=== PATIENT | male | born 1950 | race Caucasian/White ===

== ENCOUNTER → 2020-01-13 | Outpatient (CLI) | payer MEDICARE ==
--- NOTE | 2020-01-13 13:46 | CONS ---
CONSULTATION DATE OF SERVICE: 01/13/2020. HISTORY OF PRESENT ILLNESS/SLEEP WAKE EVALUATION: 69-year-old gentleman who has been evaluated in Sleep Center for obstructive sleep apnea-hypopnea syndrome. SLEEP SCHEDULE: The patient's usual sleep schedule from 10 p.m. to 7 a.m. basically 7 days a week. FALLING ASLEEP: Usually no problems with falling asleep. DURING SLEEP: He sleeps in different positions including backside and stomach. According to his , he has extremely loud snoring and witnessed episodes of stopped breathing during sleep. The patient wakes up from sleep with nocturia. He has swinging movements of his arm, rolling back and forth during the night. DURING THE DAY/SLEEP WAKE EVALUATION: During the day patient may feel sleepiness. [place] Sleepiness Scale increased to 10. PAST MEDICAL HISTORY: Positive for hypertension, hemorrhagic stroke, diabetes mellitus, hyperlipidemia, acid reflux, arthritis, depression. PAST SURGICAL HISTORY: Bilateral surgery for cataracts. MEDICATIONS: Amlodipine, bupropion, Calcitriol, carvedilol, doxazosin, fluoxetine, Humalog, Lantus, lisinopril, . REVIEW OF SYSTEMS: Awakenings from sleep, sometimes tiredness and sleepiness during the day. Snoring, witnessed episodes of stopped breathing during sleep. PHYSICAL EXAM: gentleman without distress. BP 160/61, HR 56, RR 16, height 5 feet 11 inches, weight 270 pounds, BMI 37.6, temperature 98.1. Oxygen saturation at room air 97%. Oropharynx low position of soft palate, wide neck 18 inches in circumference. HEENT: PERRLA, EOMI, evaluation of oropharynx showed tongue protrudes midline. NECK: Supple, no JVD. Thyroid is not palpable. LUNGS: Clear to percussion and to auscultation. Good air exchange. No wheezing or rhonchi. HEART: S1, S2 regular. No murmurs, gallops, or rubs. ABDOMEN: Obese. Soft and nontender. Bowel sounds are present. No organomegaly appreciated. EXTREMITIES: No clubbing or cyanosis. SAMPLE TESTER GRINDER: Awake, alert, and oriented X3. Cranial nerves 2 to 7 intact. There is no fasciculation or atrophy. noted. No focal deficits observed. IMPRESSION: 1. Loud snoring, witnessed episodes of stopped breathing during sleep. Low position of soft palate, wide neck, sleepiness. [place] Sleepiness Scale is 10. Obstructive sleep apnea-hypopnea syndrome. 2. Obesity BMI 37.6. 3. Hypertension. 4. Status post hemorrhagic stroke with slight residual right-sided weakness. 5. Diabetes mellitus. 6. Hyperlipidemia. 7. Acid reflux. 8. History of arthritis. 9. Depression. 10.Status post bilateral cataract surgery. PLAN: 1. Polysomnography for evaluation of patient's breathing during sleep. 2. CPAP/BiPAP titration if sleep study confirms obstructive sleep apnea-hypopnea syndrome. 3. Preferable position during sleep on the side. 4. No driving if patient feels any sleepiness. 5. I will see patient for follow up visit to explain results of testing and following plan. Thank you very much for referring this patient for consultation. Sincerely, West Brown MD, PhD, FAASM Diplomat of [place] [employer] [place] [employer] Supervisor Fitting of [facility] [place] MMODL / SERINAN: [id number] /
== END | disposition home or self-care (01) ==
LOC: SLEEP 10:17
PROVIDERS: ATTEND Internal Medicine
DX: G47.33 Obstructive sleep apnea (adult) (pediatric) (principal); E66.9 Obesity, unspecified; I10 Essential (primary) hypertension; R53.1 Weakness; E11.9 Type 2 diabetes mellitus without complications; E78.5 Hyperlipidemia, unspecified; K21.9 Gastro-esophageal reflux disease without esophagitis; Z68.37 Body mass index [BMI] 37.0-37.9, adult; Z87.39 Personal history of other diseases of the musculoskeletal system and connective tissue; Z86.73 Personal history of transient ischemic attack (TIA), and cerebral infarction without residual deficits; Z98.890 Other specified postprocedural states; Z79.4 Long term (current) use of insulin; Z79.899 Other long term (current) drug therapy
CPT/HCPCS: 99211

== ENCOUNTER → 2020-05-05 | Outpatient (CLI) | payer MEDICARE ==
[2020-05-05 08:32] LABS: HCT 36.3 % (39.0-53.0); HGB 12.3 gm/dL (13.0-17.5); MCH 30.2 pg (25.0-35.0); MCHC 33.8 g/dL (31.0-37.0); MCV 89.3 fL (80.0-100.0); Mean Platelet Volume 8.8; Platelet Count 208 k/uL (150-450); RBC 4.06 m/uL (4.30-5.90); RDW 12.7 % (11.5-15.5); WBC 6.7 k/uL (3.8-10.6)
[2020-05-05 08:41] LABS: Albumin 3.3 g/dL (3.5-5.0); Calcium 8.5 mg/dL (8.4-10.2); Potassium 4.5 mmol/L (3.5-5.1); Total Bilirubin 0.5 mg/dL (0.2-1.3); Total Protein 5.7 g/dL (6.3-8.2)
[2020-05-05 08:44] LABS: INR 0.9 (<1.2); Prothrombin Time 9.5 sec (9.0-12.0)
[2020-05-05 10:04] LABS: Appearance,Urine Clear (Clear); Bilirubin,Urine Negative (Negative); Blood,Urine Negative (Negative); Color,Urine Yellow; Glucose,Urine (UA) 4+ (Negative); Ketones,Urine Negative (Negative); Leukocyte Esterase,Urine Negative (Negative); Mucus,Urine Rare /hpf; Nitrite,Urine Negative (Negative); PH, Urine 5.5 (5.0-8.0); Protein,Urine 1+ (Negative); RBC,Urine 1 /hpf (0-5); Specific Gravity,Urine 1.019 (1.001-1.035); Squamous Epithelial Cell,Urine <1 /hpf (0-4); Urobilinogen,Urine <2.0 mg/dL (<2.0); WBC,Urine 1 /hpf (0-5)
== END | disposition home or self-care (01) ==
LOC: LABPAT 05-04 15:11
PROVIDERS: ATTEND Orthopaedic Surgery Sports Medicine
DX: Z01.818 Encounter for other preprocedural examination (principal); M17.11 Unilateral primary osteoarthritis, right knee; Z79.01 Long term (current) use of anticoagulants
CPT/HCPCS: 36415; 80053; 81001; 85027; 85610; 85730; 87070

== ENCOUNTER → 2020-05-10 | Outpatient (CLI) | payer MEDICARE ==
--- NOTE | 2020-05-10 16:53 | SFUN ---
SLEEP CENTER FOLLOW UP NOTE DATE OF SERVICE: 05/10/2020 A 70-year-old gentleman who has been followed in the Sleep Center for treatment of obstructive sleep apnea-hypopnea syndrome. Patient recently had a polysomnogram and CPAP titration. I discussed results of sleep studies with the patient in detail. Polysomnogram showed extremely severe obstructive sleep apnea-hypopnea syndrome with apnea-hypopnea index 82.8. Presently, patient is on treatment with CPAP. He likes his machine. He feels better with CPAP. Sleeps better. [place] Sleepiness Scale today is 6. I checked CPAP unit. Range of the pressure 7-18, mask fit 84%. Average usage per night, 7.5 hours. Apnea-hypopnea index reading is 8. MEDICATIONS: Amlodipine, bupropion, , carvedilol, doxazosin, fluoxetine, Humalog, Lantus, lisinopril. PHYSICAL EXAM: Patient in no distress. BP 166/89, HR 56, RR 16, weight 262.2, temp 98.0, oxygen saturation at room air 97%. OROPHARYNX: Low position of soft palate. ABDOMEN: Obese. NECK: Supple, no JVD. Thyroid is not palpable. LUNGS: Clear to percussion and to auscultation. Good air exchange. No wheezing or rhonchi. HEART: S1, S2 regular. No murmurs, gallops, or rubs. EXTREMITIES: No clubbing or cyanosis. COTTON WRINGER: Awake, alert, and oriented X3. Cranial nerves 2 to 7 intact. There is no fasciculation or atrophy. noted. No focal deficits observed. IMPRESSION: 1. Extremely severe obstructive sleep apnea-hypopnea syndrome with apnea-hypopnea index 82.8. Patient demonstrated good compliance with treatment, benefitting from treatment. The reading from the machine showed apnea-hypopnea index 8. 2. Obesity. 3. Hypertension. 4. Status post hemorrhagic stroke. 5. Diabetes mellitus. 6. Hyperlipidemia. 7. Acid reflux. 8. Depression. 9. History of arthritis. 10.Status post bilateral cataract surgery. PLAN: 1. 1 increased range of the pressure in the machine to the range from 7-20. 2. Patient will continue to use PAP equipment every night for the whole night. 3. Sleep hygiene with regular time in bed for at least 7-1/2 to 8 hours. 4. Precautions related to driving. No driving if feeling sleepiness. 5. I will maintain all necessary prescription for PAP supplies including mask, tube, filters. 6. Watching weight. 7. No driving if feeling sleepiness. 8. Follow-up visit in 6 months or earlier if patient has any problems. Thank you very much for allowing me to participate in the management of your patient. Sincerely, West Brown MD, PhD, FAASM Diplomat of [place] [employer] Housecleaner of [facility] [place] MMODL / IJN: [id number] /
== END | disposition home or self-care (01) ==
LOC: SLEEP 11:45
PROVIDERS: ATTEND Internal Medicine
DX: G47.33 Obstructive sleep apnea (adult) (pediatric) (principal); I10 Essential (primary) hypertension; E11.9 Type 2 diabetes mellitus without complications; E78.5 Hyperlipidemia, unspecified; K21.9 Gastro-esophageal reflux disease without esophagitis; Z98.42 Cataract extraction status, left eye; Z98.41 Cataract extraction status, right eye; F32.9 Major depressive disorder, single episode, unspecified; E66.9 Obesity, unspecified

== ENCOUNTER → 2020-05-25 | Outpatient (CLI) | payer MEDICARE ==
[~2020-05-25] MED LIST: REGADENOSON 0.4 MG/5 ML SYRINGE IV ONE
--- NOTE | 2020-05-25 12:08 | NM ---
EXAMINATION TYPE: NM stress lexiscan cardiolite DATE OF EXAM: 05/25/2020 COMPARISON: NONE HISTORY: Abnormal EKG TECHNIQUE: After the intravenous administration of 10.2 mCi Tc 99m Sestamibi - Cardiolite resting SP ECT images acquired 45 minutes post injection. The patient received 0.4mg Lexiscan, 25.0 mCi Tc 99m Sestamibi - Stress images obtained [address] injection FINDINGS: Review of stress and rest SPECT images demonstrates reduced uptake involving the inferior and inferol ateral wall the myocardium. Could not exclude a small component versus reversibility involving the la teral wall.. Gated analysis shows normal wall motion with an estimated left ventricular ejection fra ction of 60 %. Report called to the office and report was faxed to the referring clinician. IMPRESSION: 1. Fixed area defect involving the inferior and inferolateral myocardium. However, small area of stre ss-induced reversible ischemia involving the lateral myocardium is not excluded and should be correla omid clinically.
--- NOTE | 2020-05-25 12:09 | US ---
EXAMINATION TYPE: US carotid duplex BILAT DATE OF EXAM: 05/25/2020 COMPARISON: NONE CLINICAL HISTORY: I51.9 Heart disease unspec. Vascular disease EXAM MEASUREMENTS: RIGHT: Peak Systolic Velocity (PSV) cm/sec ----- Right CCA: 59.9 ----- Right ICA: 74.2 ----- Right ECA: 82.0 ICA/CCA ratio: 1.2 RIGHT: End Diastole cm/sec ----- Right CCA: 10.3 ----- Right ICA: 16.8 ----- Right ECA: 0 LEFT: Peak Systolic Velocity (PSV) cm/sec ----- Left CCA: 61.2 ----- Left ICA: 89.9 ----- Left ECA: 72.9 ICA/CCA ratio: 1.5 LEFT: End Diastole cm/sec ----- Left CCA: 9.0 ----- Left ICA: 18.1 ----- Left ECA: 0 VERTEBRALS (direction of flow): Right Vertebral: Antegrade Left Vertebral: Antegrade Rhythm: Normal No significant stenosis seen IMPRESSION: 1. No significant hemodynamic stenosis. Criteria for Assigning % of Stenosis / Diameter reduction (Estimation based on the indirect measurements of the internal carotid artery velocities (ICA PSV). 1. Normal (no stenosis)=ICA PSV < 125 cm/s: ratio < 2.0: ICA EDV<40 cm/s. 2. Less than 50% stenosis=ICA PSV < 125 cm/s: ratio < 2.0: ICA EDV<40 cm/s. 3. 50 to 69% stenosis=ICA PSV of 125 to 230 cm/s: ration 2.0 ? 4.0: ICA EDV 40-100 cm/s. 4. Greater than 70% stenosis to near occlusion= ICA PSV > 230 cm/s: ratio > 4.0: ICA EDV > 100 cm/s. 5. Near occlusion= ICA PSV velocities may be low or undetectable: variable ratio and ICA EDV. 6. Total occlusion=unable to detect flow.
--- NOTE | 2020-05-26 11:21 | P.STRESS ---
- Stress Test Note Stress Test Results/Findings: Exam Performed: NM stress lexiscan cardiolite Exam Date: 05/25/20 Reason for Exam: ABNORMAL EKG Height: 6 ft Weight: 250 kg Protocol: LEXISCAN Stage: NA Duration of Exercise: NA Resting Heart Rate: 59 Resting Blood Pressure: 164/40 Maximum Achieved Heart Rate: 68 Maximum Achieved Blood Pressure: 164/40 85% PMHR: NA 100% PMHR: NA METS: NA Technologist Comment: Stress Test Results/Findings: Baseline heart rate 59 beats a minute, Baseline blood pressure 164/40 mmHg Baseline twelve-lead ECG shows right bundle branch block pattern isolated inverted T waves in lead 3 line patient received Lexiscan infusion per protocol No symptoms No significant change in heart rate and blood pressure nuclear portion will be reported separately
== END | disposition home or self-care (01) ==
LOC: RADNMMAIN 07:41
PROVIDERS: ATTEND Family Medicine
DX: I25.9 Chronic ischemic heart disease, unspecified (principal); R94.8 Abnormal results of function studies of other organs and systems; I51.9 Heart disease, unspecified
CPT/HCPCS: 93017; 93880; 78452; A9500; J2785

== ENCOUNTER 2020-06-28 17:04 | Observation (INO) | payer MEDICARE ==
[2020-06-28 18:03] VITALS: RESP 16
[2020-06-28] MEDS: amLODIPine 10 MG TAB PO SCH (20:15)
[2020-06-28] MEDS: carvediloL 12.5 MG TAB PO SCH (20:15)
[2020-06-28] MEDS: FERROUS SULFATE 325 MG TAB PO SCH (20:16)
[2020-06-28 20:22] LABS: Glucose,Whole Blood 158 mg/dL (75-99)
[2020-06-28] MEDS ORDERED: buPROPion SR 150 MG TABLET.ER PO SCH (21:00)
[2020-06-28] MEDS ORDERED: ATORVASTATIN 40 MG TAB PO SCH (21:00)
[2020-06-28] MEDS ORDERED: INSULIN DETEMIR (LEVEMIR) 100 UNIT/ML SYR SQ SCH (21:00)
[2020-06-28] MEDS ORDERED: DOXAZOSIN 2 MG TAB PO SCH (21:00)
[2020-06-29] MEDS: SODIUM CHLORIDE 0.9% 1,000 ML IV SCH ×2 (01:00→05:28)
[2020-06-29 04:25] LABS: Glucose,Whole Blood 58 mg/dL (75-99)
[2020-06-29] MEDS ORDERED: DEXTROSE 50% SYRINGE 50 ML IVP ONE (04:26)
[2020-06-29 04:39] LABS: Glucose,Whole Blood 154 mg/dL (75-99)
[2020-06-29] MEDS: INSULIN ASPART (NovoLOG) 100 UNIT/ML VIAL SQ SCH ×3 (05:54→17:07)
[2020-06-29] MEDS ORDERED: ASPIRIN 325 MG TAB PO STA (06:00)
[2020-06-29] MEDS: amLODIPine 10 MG TAB PO SCH (06:09)
[2020-06-29] MEDS: FERROUS SULFATE 325 MG TAB PO SCH (06:10)
[2020-06-29] MEDS: carvediloL 12.5 MG TAB PO SCH ×2 (06:10→17:10)
[2020-06-29 06:14] LABS: Glucose,Whole Blood 83 mg/dL (75-99)
[2020-06-29] MEDS ORDERED: LIDOCAINE 1% INJ 10MG/ML (20 ML MDV) ONE (07:12)
[2020-06-29] MEDS ORDERED: IV FLUID CONTINUATION 900 ML IV ONE (07:17)
[2020-06-29 07:38] LABS: HGB 13.4 gm/dL (13.0-17.5); MCH 30.3 pg (25.0-35.0); MCHC 34.4 g/dL (31.0-37.0); MCV 88.1 fL (80.0-100.0); Mean Platelet Volume 8.5; Platelet Count 216 k/uL (150-450); RBC 4.43 m/uL (4.30-5.90); RDW 12.5 % (11.5-15.5); WBC 8.9 k/uL (3.8-10.6)
[2020-06-29] MEDS ORDERED: MIDAZOLAM 2 MG/2 ML VIAL IV ONE (07:39)
[2020-06-29] MEDS ORDERED: LIDOCAINE 1% INJ 10MG/ML (20 ML MDV) SQ ONE (07:42)
[2020-06-29 07:47] LABS: Calcium 8.5 mg/dL (8.4-10.2); Potassium 3.8 mmol/L (3.5-5.1)
[2020-06-29] MEDS ORDERED: POTASSIUM CHLORIDE 10 MEQ in WATER FOR INJECTION 1 100ML.BAG IVPB STA (07:49)
[2020-06-29] MEDS ORDERED: BIVALIRUDIN BOLUS 250 MG/50 ML IV ONE (07:52)
[2020-06-29] MEDS ORDERED: BIVALIRUDIN 250 MG in SODIUM CHLORIDE 0.9% 50 ML IV ONE (07:53)
[2020-06-29] MEDS ORDERED: CLOPIDOGREL 75 MG TAB ONE (07:53)
[2020-06-29] MEDS ORDERED: CLOPIDOGREL 75 MG TAB PO ONE (07:56)
[2020-06-29] MEDS ORDERED: NITROGLYCERIN 1000MCG/10ML SYRINGE INTRACORON ONE (08:03)
[2020-06-29] MEDS ORDERED: IOPAMIDOL-370 100ML BTL INJ ONE (08:07)
[2020-06-29] MEDS ORDERED: ASPIRIN 81 MG PO SCH (09:00)
[2020-06-29] MEDS ORDERED: FLUoxetine HCL 20 MG CAP PO SCH (09:00)
[2020-06-29] MEDS ORDERED: CHOLECALCIFEROL 1,000 UNIT TAB PO SCH (09:00)
--- NOTE | 2020-06-29 09:37 | PTCA ---
PERCUTANEOUSTRANS CORORONARY ANGIOGRAPHY DATE OF SERVICE: 06/29/2020. PROCEDURE: PTCA and stenting of a proximal circumflex marginal coronary artery with a drug-eluting stent. PERFORMED BY: Dr. Aung Rosario. Moderate conscious sedation time was 29 minutes. Patient was administered Versed. Oxygen, saturation, hemodynamics and EKG were monitored closely. CLINICAL INFORMATION: Mr. Liban Merino is a patient with type 2 diabetes, chronic kidney disease, hypertension, hyperlipidemia, who underwent a cardiac cath because of an abnormal stress test which revealed a total occlusion of the dominant RCA with collaterals from the left system and a 90% stenosis involving the proximal portion of the large obtuse marginal branch of circumflex. The LAD was calcified, but did not have any significant lesion. I advised PCI of circumflex and possibly FFR of the LAD lesion looks significant. The patient left system injections was somewhat suboptimal from the radial approach because of extreme tortuosity. The risks, benefits, options, rationale were explained. The patient was brought in for the procedure electively yesterday and hydrated and after adequate hydration, I performed a renal function test and creatinine was 1.52. He was brought in for the procedure today. PROCEDURE NOTE: Under local anesthesia and strict aseptic precautions, a 6-Lebanese introducer was placed in the right femoral artery. Using a JL3, 6-Lebanese guide catheter, I performed selective coronary angiography of the left system and noted that the LAD lesion was not very significant. The lesion was less than 30% with calcification. Multiple angiograms were obtained. I then proceeded with intervention of the circumflex marginal. A run- through wire was used to cross the lesion. A 2.5 caliber 12 mm NC Trek balloon was used to pre-dilate the lesion. Patient received Angiomax bolus and infusion. He also received 600 mg of Plavix. After the predilatation, I deployed a 3.25 caliber 18 mm Xience stent at 13 atmospheres. Patient had mild chest pressure, but no EKG changes. Excellent angiographic result without complication was achieved. The sheath was taken out and Angio-Seal device used to secure hemostasis and he was sent to the room in stable condition. Results were discussed with the patient and I reviewed in detail with the patient's by phone. I expect he will be discharged around 6 pm today if he remains stable. I expect to see the patient in the office in about a week or so. MMODL / IJN: [id number] /
[2020-06-29 11:33] LABS: Glucose,Whole Blood 129 mg/dL (75-99)
[2020-06-29] MEDS ORDERED: lisinopriL 10 MG TAB PO SCH (14:00)
[2020-06-29 15:52] VITALS: BP 175/67; PULSE 68; TEMP 97.6
[2020-06-29 16:45] LABS: Glucose,Whole Blood 95 mg/dL (75-99)
== END 2020-06-29 17:57 | disposition home or self-care (01) ==
LOC: 1SOBS 17:08
PROVIDERS: ADMIT Internal Medicine Interventional Cardiology; ATTEND Internal Medicine Interventional Cardiology
DX: I25.10 Atherosclerotic heart disease of native coronary artery without angina pectoris (principal); I25.82 Chronic total occlusion of coronary artery; I77.1 Stricture of artery; I12.9 Hypertensive chronic kidney disease with stage 1 through stage 4 chronic kidney disease, or unspecified chronic kidney disease; E11.22 Type 2 diabetes mellitus with diabetic chronic kidney disease; N18.32 Chronic kidney disease, stage 3b; E78.5 Hyperlipidemia, unspecified; E78.00 Pure hypercholesterolemia, unspecified; G47.33 Obstructive sleep apnea (adult) (pediatric); Z98.890 Other specified postprocedural states; Z79.899 Other long term (current) drug therapy; Z79.4 Long term (current) use of insulin; Z79.82 Long term (current) use of aspirin; Z86.73 Personal history of transient ischemic attack (TIA), and cerebral infarction without residual deficits; Z99.89 Dependence on other enabling machines and devices
CPT/HCPCS: 80048; 85027; G0378 ×2; G0379; C9600; C1769 ×4; C1760; C1887; C1725; C1894; C1874; J2250; S0106; J2001; J3480; J0583; Q9967

== ENCOUNTER 2020-07-26 19:34 | Emergency (ER) | payer MEDICARE ==
[2020-07-26] MEDS ORDERED: MORPHINE SULFATE 4 MG/ML SYRINGE IM STA (20:09)
--- NOTE | 2020-07-26 20:14 | ED ---
General Adult HPI - General Chief complaint: Back Pain/Injury Stated complaint: Fall/Rib Injury Time Seen by Provider: 07/26/20 19:50 Source: patient Mode of arrival: ambulatory Limitations: no limitations - History of Present Illness Initial comments: 70-year-old male presents to the emergency department for chief complaint of right-sided mid back pain. Patient reports that he was walking outside today when he slipped on ice and fell on his mid back. Patient does take Plavix for a stent. Patient denies any abdominal or lower back pain. States that it does not hurt unless he moves a certain way or coughs or sneezes. Patient did not hit his head. Denies headache or neck pain. Patient does not have any mid line back pain.Patient has no other complaints at this time including shortness of breath, chest pain, abdominal pain, nausea or vomiting, headache, or visual changes. - Related Data Home Medications Medication Instructions Recorded Confirmed Aspirin [Adult Low Dose Aspirin EC] 81 mg PO DAILY 06/27/20 06/28/20 Cholecalciferol [Vitamin D3 (25 2,000 unit PO DAILY 06/27/20 06/28/20 Mcg = 1000 Iu)] Doxazosin [Cardura] 2 mg PO HS 06/27/20 06/28/20 FLUoxetine HCL [PROzac] 20 mg PO DAILY 06/27/20 06/28/20 Ferrous Sulfate [Feosol] 325 mg PO BID 06/27/20 06/28/20 Insulin Glargine [Lantus] 60 unit SQ HS 06/27/20 06/28/20 Lisinopril [Prinivil] 10 mg PO DAILY@1400 06/27/20 06/28/20 amLODIPine [Norvasc] 10 mg PO DAILY 06/27/20 06/28/20 calcitrioL [Calcitriol] 0.25 mcg PO WESA 06/27/20 06/28/20 Carvedilol [Coreg] 25 mg PO BID 06/28/20 06/28/20 Insulin Lispro [humaLOG Kwikpen] 20 unit SQ TID-W/MEALS 06/28/20 06/28/20 buPROPion HCL [buPROPion HCL SR] 150 mg PO HS 06/28/20 06/28/20 Previous Rx's Medication Instructions Recorded Clopidogrel [Plavix] 75 mg PO DAILY #90 tab 06/29/20 Nitroglycerin Sl Tabs [Nitrostat] 0.4 mg SUBLINGUAL Q5M PRN #1 bottle 06/29/20 Rosuvastatin [Crestor] 20 mg PO DAILY #90 tablet 06/29/20 Allergies Allergy/AdvReac Type Severity Reaction Status Date / Time No Known Allergies Allergy Verified 07/26/20 19:53 Review of Systems ROS Statement: Those systems with pertinent positive or pertinent negative responses have been documented in the HPI. ROS Other: All systems not noted in ROS Statement are negative. Past Medical History Past Medical History: CVA/TIA, Diabetes Mellitus, GERD/Reflux, Hyperlipidemia, Hypertension, Osteoarthritis (OA), Renal Disease, Sleep Apnea/CPAP/BIPAP Additional Past Medical History / Comment(s): Hx CVA 03/2018, "right side finnicky sometimes still", Chronic kidney disease, CPAP use. History of Any Multi-Drug Resistant Organisms: None Reported Past Surgical History: Heart Catheterization Additional Past Surgical History / Comment(s): Bilateral Cataract surgery. Past Anesthesia/Blood Transfusion Reactions: No Reported Reaction Past Psychological History: Depression Smoking Status: Never smoker Past Alcohol Use History: None Reported Past Drug Use History: None Reported - Past Family History Father Family Medical History: Cancer Additional Family Medical History / Comment(s): Colon Cancer. Sister(s) Family Medical History: Cancer Additional Family Medical History / Comment(s): Breast cancer. General Exam Limitations: no limitations General appearance: alert, in no apparent distress (Well appearing, sitting up on the edge of bed) Head exam: Present: atraumatic, normal inspection Eye exam: Present: normal appearance. Absent: PERRL, EOMI ENT exam: Present: normal exam, mucous membranes moist Neck exam: Present: normal inspection, full ROM. Absent: tenderness Respiratory exam: Present: normal lung sounds bilaterally, other (Patient has right sided posterior rib tenderness around rib 10. No ecchymosis, external signs of trauma, or step-off). Absent: respiratory distress Cardiovascular Exam: Present: regular rate, normal rhythm, normal heart sounds GI/Abdominal exam: Present: soft, normal bowel sounds. Absent: distended, tenderness (No abdominal tenderness or ecchymosis), guarding, rebound, rigid Neurological exam: Present: alert, oriented X3 Course Vital Signs 07/26/20 07/26/20 19:47 21:09 Temperature 98.5 F Pulse Rate 74 77 Respiratory 22 24 Rate Blood Pressure 193/78 181/77 O2 Sat by Pulse 96 98 Oximetry Medical Decision Making - Medical Decision Making Vitals are stable. Patient is hypertensive in the emergency room but has not taken his home blood pressure medication today. States he has not home and would like to take it there. He does have some point tenderness to the right posterior mid ribs without any ecchymosis or external signs of trauma. No abdominal tenderness. Patient does not have pain unless he is sneezing or moving in a certain way. X-ray of the right ribs shows a right sixth rib fracture, nondisplaced. No acute cardiopulmonary abnormality. Patient was given morphine. States he feels much better. Incentive spirometer and education was given by respiratory therapist answered return parameters were discussed including cough or fever. Discussed he follow up with his doctor. He'll be given Tylenol 3 for home. He should return here for any worsening symptoms. Patient also evaluated by Dr. Todd Disposition Clinical Impression: Closed rib fracture Disposition: HOME SELF-CARE Condition: Good Instructions (If sedation given, give patient instructions): Rib Fracture (ED) Additional Instructions: Please take Tylenol 3 for pain. Please try pillow splinting. Use incentive spirometer as directed. Please follow-up with your doctor. Return to the emergency room for any worsening symptoms. Is patient prescribed a controlled substance at d/c from ED?: No Referrals: Nonstaff,Physician [REFERRING] - 1-2 days Time of Disposition: 21:25
--- NOTE | 2020-07-26 20:45 | XR ---
Result: History: Rib pain status post fall. Comparison: None available. Technique: Four views of the right ribs with PA chest. Findings: There is nondisplaced fracture of the right sixth rib. The cardiac silhouette is within normal limits for size and appearance. The lungs are clear without evidence of focal consolidation, pleural effusion, pulmonary edema, or pneumothorax. Impression: 1. Right sixth rib fracture. 2. No acute cardiopulmonary abnormality.
[2020-07-26 21:09] VITALS: BP 181/77; PULSE 77; RESP 24; TEMP 98.5
[2020-07-26] MEDS ORDERED: ACET/COD 300 MG/30 MG STARTER PACK 6 TAB BTL PO STA (21:33)
== END 2020-07-26 21:44 | disposition home or self-care (01) ==
LOC: EC 19:34
DX: S22.31XA Fracture of one rib, right side, initial encounter for closed fracture (principal); I13.0 Hypertensive heart and chronic kidney disease with heart failure and stage 1 through stage 4 chronic kidney disease, or unspecified chronic kidney disease; E11.22 Type 2 diabetes mellitus with diabetic chronic kidney disease; N18.9 Chronic kidney disease, unspecified; K21.9 Gastro-esophageal reflux disease without esophagitis; E78.5 Hyperlipidemia, unspecified; M19.90 Unspecified osteoarthritis, unspecified site; G47.30 Sleep apnea, unspecified; F32.9 Major depressive disorder, single episode, unspecified; Z79.82 Long term (current) use of aspirin; Z79.4 Long term (current) use of insulin; Z79.899 Other long term (current) drug therapy; Z99.89 Dependence on other enabling machines and devices; Z86.73 Personal history of transient ischemic attack (TIA), and cerebral infarction without residual deficits; Z95.5 Presence of coronary angioplasty implant and graft; W00.0XXA Fall on same level due to ice and snow, initial encounter; Y93.01 Activity, walking, marching and hiking; Y92.009 Unspecified place in unspecified non-institutional (private) residence as the place of occurrence of the external cause
CPT/HCPCS: 99283 ×2; 96372 ×2; 71101; J2270

== ENCOUNTER → 2020-10-26 | Outpatient (CLI) | payer MEDICARE ==
--- NOTE | 2020-10-26 22:26 | SFUN ---
SLEEP CENTER FOLLOW UP NOTE DATE OF SERVICE: 10/26/2020 This 70-year-old gentleman has been followed in Sleep Center for treatment of obstructive sleep apnea-hypopnea syndrome. The patient successfully continues to use his CPAP equipment every night for the whole night. He sleeps well with the machine; does not have any complaints related to mask fitting, pressure or humidification. He feels better after he started to use a chinstrap. No dryness in the mouth as it was before. [place] Sleepiness Scale today is 4, which is totally normal. I checked his CPAP unit. Range of the pressure is 8 to 20 and usage is for 29 nights for more than 4 hours with average usage 7.4 hours per night. The machine indicated that mask fitting is 86%. Apnea-hypopnea index is 9.2. Average pressure is 10.2. Consequently there is a slight increasing apnea-hypopnea index from the reading on the machine from 8 during the previous visit to 10.2 during this visit. During the last visit I increased the pressure in his machine up to a maximum pressure of 20 and minimum pressure of 8. MEDICATIONS: Lisinopril, amlodipine, bupropion, carvedilol, doxazosin, fluoxetine, Humalog, Lantus. PHYSICAL EXAMINATION: GENERAL: A pleasant patient in no distress. VITAL SIGNS: BP 148/69, HR 62, RR 12, height 5 feet 11 inches, weight 236.8, temperature 97.9, oxygen saturation at room air 96%. Body mass index 33. HEENT: PERRLA, EOMI. Evaluation of oropharynx showed tongue protrudes midline. Low position of soft palate. NECK: Supple. No JVD. Thyroid is not palpable. LUNGS: Clear to percussion and to auscultation. Good air exchange. No wheezing or rhonchi. HEART: S1, S2 regular. No murmurs, gallops or rubs. ABDOMEN: Obese. EXTREMITIES: No clubbing or cyanosis. LOAD OUT PERSON: Awake, alert, and oriented X3. Cranial nerves 2 to 7 intact. There is no fasciculation or atrophy. noted. No focal deficits observed. IMPRESSION: 1. Obstructive sleep apnea-hypopnea syndrome. Patient demonstrated great compliance with treatment, benefitting from treatment. Recently on diagnostic sleep study he still has extremely severe obstructive sleep apnea with apnea-hypopnea index 82.8. At present, reading from the machine showed slightly increased apnea-hypopnea index to 9.5. Otherwise, patient is benefitting from treatment. 2. Obesity. Patient lost about 30 pounds since previous visit. 3. Hypertension. 4. Status post hemorrhagic stroke. 5. Diabetes mellitus. 6. Hyperlipidemia. 7. Acid reflux. 8. Depression. 9. History of arthritis. 10.Status post bilateral cataract surgery. PLAN: 1. I decreased minimal pressure in the machine to 7 with a maximum pressure the same as he has now, 20. 2. Patient will continue to use PAP equipment every night for the whole night. 3. Sleep hygiene with regular time in bed for at least 7-1/2 to 8 hours. 4. Precautions related to driving. No driving if feeling sleepiness. 5. I will maintain all necessary prescription for PAP supplies including mask, tube, filters. 6. Watching weight. 7. Follow-up visit in 6 months or earlier if patient has any problems. Thank you very much for allowing me to participate in the management of your patient. Sincerely, West Brown MD, PhD, FAASM Diplomat of [place] [employer] [employer] Pulley Mortiser Operator of [facility] [place] MMODL / SERINAN: [id number] /
== END ==
LOC: SLEEP 14:44
PROVIDERS: ATTEND Internal Medicine
DX: G47.33 Obstructive sleep apnea (adult) (pediatric) (principal); Z99.89 Dependence on other enabling machines and devices; E66.9 Obesity, unspecified; Z68.33 Body mass index [BMI] 33.0-33.9, adult; I10 Essential (primary) hypertension; E11.9 Type 2 diabetes mellitus without complications; E78.5 Hyperlipidemia, unspecified; K21.9 Gastro-esophageal reflux disease without esophagitis; F32.9 Major depressive disorder, single episode, unspecified; Z86.73 Personal history of transient ischemic attack (TIA), and cerebral infarction without residual deficits

== ENCOUNTER → 2021-05-24 | Outpatient (CLI) | payer MEDICARE ==
--- NOTE | 2021-05-24 13:10 | SFUN ---
SLEEP CENTER FOLLOW UP NOTE DATE OF SERVICE: 05/24/2021 This 71-year-old gentleman has been followed in Sleep Center for treatment of obstructive sleep apnea-hypopnea syndrome. The patient continues to use his CPAP equipment every night for the whole night. Daggett Sleepiness Scale is 8, which is normal. I checked the patient's CPAP unit. This is a Dream Station 1 from [employer]. Range of the pressure is 8 to 16 with average pressure 11.8. Usage is 30/30 nights for more than 4 hours, average 8.8 hours per night, and 98% mask fit, which is great. Apnea- hypopnea index is 4.1, which is totally normal. Percent of periodic breathing according to the machine is 4%. There is normalization of patient's respiration on the machine after I adjusted the pressure during the previous visit. MEDICATIONS: 1. Aspirin 81 mg once a day. 2. Bupropion 150 mg once a day. 3. Carvedilol 12.5 mg twice a day. 4. Clopidogrel 75 mg once a day. 5. Doxazosin 2 mg once a day. 6. Fluoxetine 40 mg once a day. 7. Hydralazine 50 mg 3 times a day. 8. Insulin. 9. Nifedipine 60 mg once a day. 10.Rosuvastatin 30 mg once a day. 11.Nitroglycerin sublingually as needed. PHYSICAL EXAMINATION: GENERAL: Pleasant patient in no distress. VITAL SIGNS: BP 181/72, HR RR 15, height 5 feet 10-1/2 inches, weight 258.0, temperature 96.9, oxygen saturation at room air 97%. Body mass index 36.4. HEENT: PERRLA, EOMI, evaluation of oropharynx showed tongue protrudes midline. Low position of soft palate. NECK: Supple, no JVD. Thyroid is not palpable. LUNGS: Clear to percussion and to auscultation. Good air exchange. No wheezing or rhonchi. HEART: S1, S2 regular. No murmurs, gallops, or rubs. ABDOMEN: Obese. EXTREMITIES: No clubbing or cyanosis. GLEASON GEAR GENERATOR: Awake, alert, and oriented X3. Cranial nerves 2 to 7 intact. There is no fasciculation or atrophy. noted. No focal deficits observed. IMPRESSION: 1. Extremely severe obstructive sleep apnea-hypopnea syndrome with apnea-hypopnea index 82.8. Patient demonstrated 100% compliance with treatment. Normal respiration on the machine. Apnea-hypopnea index 4.1 after pressure was adjusted during the previous visit. 2. Hypertension. 3. Status post hemorrhagic stroke. 4. Obesity. 5. Diabetes mellitus. 6. Hyperlipidemia. 7. Acid reflux. 8. Depression. 9. History of arthritis. 10.Status post bilateral cataract surgery. PLAN: 1. Patient will continue to use CPAP equipment every night for the whole night. I believe the risk of stopping the use of CPAP in that case of extremely severe sleep apnea, history of hemorrhagic stroke and hypertension is significantly higher than the risk of using a recalled Dream Station 1 unit. The patient has been registered that his new unit needs to be replaced as soon as possible. 2. Losing weight. 3. Sleep hygiene with regular time in bed for 7-1/2 to 8 hours. 4. No driving if feeling sleepiness. 5. Prescription for all necessary CPAP supplies. 6. Follow-up visit in 6 months. Thank you very much for allowing me to participate in the management of your patient. Sincerely, West Brown MD, PhD, FAASM Diplomat of [employer] Sleep Medicine Board of [employer] [facility] Tech [facility] [place] MMODL / IJN: [id number] /
== END | disposition home or self-care (01) ==
LOC: SLEEP 11:06
PROVIDERS: ATTEND Internal Medicine
DX: G47.33 Obstructive sleep apnea (adult) (pediatric) (principal); I10 Essential (primary) hypertension; E66.9 Obesity, unspecified; E11.9 Type 2 diabetes mellitus without complications; E78.5 Hyperlipidemia, unspecified; F32.9 Major depressive disorder, single episode, unspecified; K21.9 Gastro-esophageal reflux disease without esophagitis; Z98.890 Other specified postprocedural states

== ENCOUNTER → 2021-06-15 | Outpatient (CLI) | payer MEDICARE ==
[2021-06-15 11:29] LABS: HCT 30.6 % (39.0-53.0); HGB 10.5 gm/dL (13.0-17.5); MCH 30.5 pg (25.0-35.0); MCHC 34.3 g/dL (31.0-37.0); Platelet Count 198 k/uL (150-450); RBC 3.44 m/uL (4.30-5.90); RDW 12.3 % (11.5-15.5); WBC 7.4 k/uL (3.8-10.6)
[2021-06-15 11:38] LABS: Albumin 3.5 g/dL (3.5-5.0); Calcium 8.8 mg/dL (8.4-10.2); Total Bilirubin 0.4 mg/dL (0.2-1.3); Total Protein 6.3 g/dL (6.3-8.2)
[2021-06-15 11:54] LABS: INR 0.9 (<1.2); Partial Thromboplastin Time 23.5 sec (22.0-30.0)
[2021-06-15 12:27] LABS: Appearance,Urine Clear (Clear); Bilirubin,Urine Negative (Negative); Blood,Urine Negative (Negative); Color,Urine Yellow; Glucose,Urine (UA) 1+ (Negative); Ketones,Urine Negative (Negative); Leukocyte Esterase,Urine Negative (Negative); Mucus,Urine Rare /hpf; Nitrite,Urine Negative (Negative); PH, Urine 5.5 (5.0-8.0); Protein,Urine 2+ (Negative); RBC,Urine 1 /hpf (0-5); Specific Gravity,Urine 1.019 (1.001-1.035); Squamous Epithelial Cell,Urine <1 /hpf (0-4); Urobilinogen,Urine <2.0 mg/dL (<2.0); WBC,Urine <1 /hpf (0-5)
== END | disposition home or self-care (01) ==
LOC: LABPAT 10:26
PROVIDERS: ATTEND Orthopaedic Surgery Sports Medicine
DX: Z01.812 Encounter for preprocedural laboratory examination (principal)
CPT/HCPCS: 80053; 81001; 85027; 85610; 85730; 87070

== ENCOUNTER 2021-06-28 10:33 | Day surgery (SDC) | payer MEDICARE ==
[2021-06-20 13:22] VITALS: BMI 33.9
[~2021-06-28 10:33] MED LIST changes: +ACETAMINOPHEN TAB 325 MG TAB PO PRN; +ACETAMINOPHEN TAB 500 MG TAB PO PRN; +DEXAMETHASONE SOD PHOSPHATE 4 MG/ML 1 ML VIAL IV ONE; +GABAPENTIN 300 MG CAP PO PRN; +HYDROcodone/APAP 5-325MG 1 EACH TAB PO PRN; +HYDROmorphone 0.2 MG/1 ML SYRINGE IVP PRN; +HYDROmorphone 0.5 MG/0.5 ML SYRINGE IVP PRN; +LACTATED RINGERS 1,000 ML IV SCH; +LIDOCAINE 1% (10MG/ML) FOR IV START INTRADERMA PRN; +MAGNESIUM HYDROXIDE 2,400 MG/10 ML CUP PO PRN; +MELOXICAM 7.5 MG TAB PO PRN; +MIDAZOLAM 2 MG/2 ML VIAL IV PRN; +NA PHOS,M-B/NA PHOS,DI-BA 133 ML ENEMA RECTAL PRN; +NALOXONE 0.4 MG/ML 1 ML VIAL IV PRN; +ONDANSETRON 4 MG/2 ML VIAL IVP ONE; +ONDANSETRON 4 MG/2 ML VIAL IVP PRN; -REGADENOSON 0.4 MG/5 ML SYRINGE IV ONE; +TEMAZEPAM 15 MG CAP PO PRN; +TRANEXAMIC ACID 1,000 MG in SODIUM CHLORIDE 0.9% 100 ML IVPB PRN; +bisacodyL 10 MG SUPP RECTAL PRN; +diazePAM 5 MG TAB PO PRN; +traMADol 50 MG TAB PO PRN
[2021-06-28] MEDS: LACTATED RINGERS 1,000 ML IV SCH ×2 (11:19→23:04)
[2021-06-28 11:25] LABS: Glucose,Whole Blood 109 mg/dL (75-99)
[2021-06-28] MEDS ORDERED: ROPIVACAINE 5 MG/ML 30 ML VIAL ONE (12:20)
[2021-06-28] MEDS ORDERED: TRANEXAMIC ACID 1,000 MG/10 ML VIAL ONE (12:20)
[2021-06-28] MEDS ORDERED: DEXAMETHASONE SOD PHOSPHATE 4 MG/ML 1 ML VIAL ONE (12:20)
[2021-06-28] MEDS ORDERED: SODIUM CHLORIDE 0.9% 100 ML BAG ONE (12:20)
[2021-06-28] MEDS ORDERED: .fentaNYL (PF) 50 MCG/ML 2 ML AMP ONE (12:20)
[2021-06-28] MEDS ORDERED: MIDAZOLAM 2 MG/2 ML VIAL ONE (12:20)
[2021-06-28] MEDS ORDERED: PROPOFOL 10 MG/ML 20 ML VIAL IV ONE (12:20)
[2021-06-28] MEDS ORDERED: ceFAZolin 3,000 MG in SODIUM CHLORIDE 0.9% IRRIGATIO 3,000 ML IRRIGATION ONE (12:54)
[2021-06-28] MEDS ORDERED: LACTATED RINGERS 1,000 ML IV ONE (13:55)
[2021-06-28] MEDS ORDERED: ROPIVACAINE 0.2%-NS ON-Q PUMP 2 MG/ML EACH MISCELLANE ONE (14:35)
[2021-06-28 14:57] LABS: Glucose,Whole Blood 121 mg/dL (75-99)
--- NOTE | 2021-06-28 14:58 | XR ---
EXAMINATION TYPE: XR knee limited RT DATE OF EXAM: 06/28/2021 COMPARISON: NONE TECHNIQUE: Two views submitted HISTORY: Post op FINDINGS: There is a prosthetic knee in near anatomic alignment. There is soft tissue edema and emphysema. Di ffuse osteopenia with atherosclerotic change of the vasculature. IMPRESSION: 1. Postoperative change. Appears in near-anatomic alignment
[2021-06-28] MEDS: HYDROmorphone 0.5 MG/0.5 ML SYRINGE IVP PRN ×2 (15:06→16:29)
--- NOTE | 2021-06-28 19:42 | P.ANPRN ---
Procedure Note - Anesthesia - Nerve Block Performed Right Adductor Canal Infusion Time Out Performed: Yes Date of Procedure: 06/28/21 Procedure Start Time: 11:35 Procedure Stop Time: 11:47 Location of Patient: PreOp Indication: Acute Post-Operative Pain, Requested by Surgeon Sedation Type: Sedate with meaningful contact maintained Preparation: Sterile Prep, Sterile Dressing Position: Supine Catheter: Indwelling Needle Types: Pajunk Needle Gauge: 21 Ultrasound used to visualize needle placement: Yes Ultrasound used to observe medication spread: Yes Blood Aspirated: No Pain Paresthesia on Injection Noted: No Resistance on Injection: Normal Image Stored and Saved: Yes Events: Uneventful and Well Tolerated (ropi .5% 20cc)
--- NOTE | 2021-06-28 19:43 | P.ANPRN ---
Procedure Note - Anesthesia - Nerve Block Performed Right Kiarack Single Time Out Performed: Yes Date of Procedure: 06/28/21 Procedure Start Time: 11:48 Procedure Stop Time: 11:53 Location of Patient: PreOp Indication: Acute Post-Operative Pain, Requested by Surgeon Sedation Type: Sedate with meaningful contact maintained Preparation: Sterile Prep Position: Supine Needle Types: Pajunk Needle Gauge: 21 Ultrasound used to visualize needle placement: Yes Ultrasound used to observe medication spread: Yes Blood Aspirated: No Pain Paresthesia on Injection Noted: No Resistance on Injection: Normal Image Stored and Saved: Yes Events: Uneventful and Well Tolerated (ropi .5% 25cc plus dexamethasone 4mg)
--- NOTE | 2021-06-28 20:42 | OP ---
OPERATIVE REPORT DATE OF PROCEDURE: 06/28/2021. SURGEON: Erik Dos Santos M.D. REPORTING COORDINATOR: Sid Cevallos PA-C PREOPERATIVE DIAGNOSIS: Right knee osteoarthrosis. POSTOPERATIVE DIAGNOSIS: Right knee osteoarthrosis. OPERATION: Right total knee arthroplasty. ANESTHESIA: Spinal with sedation. ESTIMATED BLOOD LOSS: 100 mL. TOURNIQUET: Tourniquet time was 52 minutes at 250 mmHg. COMPLICATIONS: None apparent. DRAINS: None. DISPOSITION: Post-Anesthesia Care Unit INDICATIONS: Liban is a 71-year-old male with longstanding history of right knee pain. History and physical examination are consistent with advanced right knee osteoarthrosis. He has been through significant nonoperative management up to this point. Further treatment options were discussed. He decided to go forward with right total knee arthroplasty. The risks of the procedure were discussed with him in detail. These risks include but are not limited to risk of infection, nerve damage, bleeding, pain, and a small risk of deep vein thrombosis which could lead to fatal pulmonary embolism. There is also a risk of loosening of the implant which could require revision operation. The patient understands these risks. All of his questions were answered to his satisfaction. Appropriate informed consent was obtained. DESCRIPTION OF THE PROCEDURE: The patient was identified in the preoperative holding area. Surgical site was marked by both the patient and myself. He was given 2 grams of Ancef IV for prophylactic purposes. He was then transported to the operative suite. He was placed supine on the operating room table. A spinal anesthetic was then administered and dosed per the anesthesia department without apparent complication. Examination under anesthesia was then performed. The patient was 2-3 degrees shy of full extension. He had 100 degrees of flexion. The medial collateral ligament, lateral collateral ligament and posterior cruciate ligaments were stable. Tourniquet was then placed high on the right upper thigh, well padded in preparation for surgery. The patient's right lower extremity was then prepped and draped in the usual sterile fashion. A standard surgical pause was undertaken to ensure that we were operating on the correct site and that appropriate preoperative antibiotics had been given. All staff in the room were in agreement and we proceeded. The outlines of the patella were marked with a surgical pen. A planned 12 cm vertical incision centered over the patella was marked with a surgical pen. The leg was then exsanguinated with an Esmarch dressing. The knee was then flexed and the tourniquet was inflated to 250 mmHg. The total tourniquet time for the procedure was 52 minutes Incision was then made with a 10 blade scalpel. Dissection was carried down sharply to the overlying fascia. Great care was taken to minimize the skin flaps. The knee was then exposed using a standard medial parapatellar approach. A small cuff of quadriceps tendon was then left for suturing. He was in a bit of varus preoperatively. A standard medial release was then made. Superficial medial collateral ligament was dissected off of the bone and around to the posterior aspect of the proximal tibia. The medial meniscus was then excised as well. The lateral meniscus was also released anteriorly. The leg was then externally rotated. The patella was everted. The knee was flexed. Retractors were then placed to protect the collateral ligaments. I then proceeded to remove the infrapatellar fat pad. This was excised sharply tangentially with the fibers of the patellar tendon. I then proceeded to remove the peripheral osteophytes. This was done with a rongeur. I then proceeded with the distal femoral resection. He did have near-full extension. A planned 9 mm resection was then done. The femoral canal was then entered in the midline of the femur approximately 10 mm anterior to the origin of the posterior cruciate ligament. The alison was then advanced down the center of the femur and placed intramedullary. Based on the preoperative radiographs, the angle between the anatomic and mechanical axis of the femur was approximately 4-5 degrees. The valgus angle of the distal femoral cutting guide was then set at 4 degrees for the right knee. The distal femoral cutting guide was then advanced over the intramedullary alison. This was seated firmly against the femur. Then, as mentioned, I planned to take 9 mm off the distal femur. The cutting block was then secured onto the femur with pins. The jig was then removed. The distal femoral cut was made through the slot of the block. The pins were then removed and the distal femoral cutting block was removed. The accuracy of the distal femoral cuts was checked with 2 flat bars. I then proceeded with femoral sizing. The posterior referencing sizing guide was held firmly against the resected distal surface of the femur. The posterior condyles were resting on the posterior plane of the guide. The sizing stylus was then placed onto the anterior femur. The size was measured as a size 8. I then assessed for femoral rotation. The plan was for 3 degrees of external rotation. Three degrees of external rotation was placed onto the jig. These holes were then marked. I then confirmed the rotation by 3 separate methods. This was done using the epicondylar axis as well as Whitesides line and posterior referencing. It was deemed that the external rotation was proper. I then went forward with placing the femoral cutting block. This was placed over the previously placed pin holes. The Joshua wing was then placed onto the anterior slots to ensure that we would not notch the anterior femur with the anterior femoral cut. I then proceeded with the anterior femoral cut. This was flush with the anterior cortex of the femur. The posterior cuts were then made followed by the anterior chamfer cut and then the posterior chamfer cut. The cutting block was then removed. Throughout the resection, the collateral ligaments were protected with retractors. I then placed a trial size 8 femur. It fit very nicely medial to lateral and it fit flush with the distal end of the femur. The drill holes were then made. I then proceeded with the tibial cut. I planned for a cruciate-retaining knee. The guide was placed and set for varus, valgus and for slope. The height was set for an approximate 2 mm resection from the medial tibial plateau, which was the lower side. I was happy with the alignment and the amount of resection. The cutting block was then pinned to the proximal tibia. The alignment alison was removed and the proximal tibia was resected with a reciprocating saw. Again, this was done with retractors protecting the collateral ligaments as well as the posterior cruciate ligament. I then proceeded to evaluate the flexion and extension gaps. A 10 mm block was then placed. The flexion and extension gaps were equal. I then proceeded with resection of the posterior osteophytes. He had very minimal posterior osteophytes. This was done using a curved osteotome. This resected the posterior osteophytes, and posterior capsule stripping was done off the posterior aspect of the femur at this time. The osteophytes were then removed. I then proceeded with resection of the patella. The thickness of the patella was measured using the caliper. The thickness was 22 mm. The thickness of the anticipated patellar dome was taken into account. The resection was then performed and confirmed to be equal in 4 quadrants using a caliper. Approximately 14 mm of bone remained after resection. A 29 x 8 standard patellar trial was then placed. The holes were drilled and the trial was then placed. I then proceeded with sizing the tibial plate. A size E tibial plate fit very nicely. I then placed the trial femur, the tibial tray and the patellar button. A 10 mm trial tibial insert was also placed. The components fit very nicely. He had full extension and flexion. The extension and flexion gaps were equal and stable to both varus and valgus stress. The patella tracked appropriately. Tibial tray rotation was then marked with a Bovie. This was externally rotated properly. I then proceeded with tibial preparation. First we drilled the femoral holes and removed the femoral component. The tibial tray was then set for proper external rotation as well as mediolateral placement onto the tibia. It was then pinned into place. I then proceeded with punching the keel. I then decided to proceed with cementing of all of our components. The knee was thoroughly irrigated with sterile saline solution via pulse lavage. The lateral geniculate artery was identified and cauterized. All blood was removed from the bone of the tibia, femur and patella with pulse lavage. I then proceeded with cementing. Two packs of antibiotic bone cement were prepared on the back table by the surgical endoscopist. I then proceeded with cementing of the tibia first. The cement was impacted into the keel as well as deeply seated into the bone. A second coat of cement was then placed. The tibia was then impacted into place. Excess cement was removed with Foreign's and Joker's. I then proceeded with cementing of the femoral component. The femoral component was also cemented using standard technique. Excess cement was removed. A 10 mm trial insert was then placed into the knee. It was brought into full extension with a constant axial load placed until the cement had hardened. The patellar component was then cemented. This was held firmly with a compressive device until the cement had dried. When the cement had dried, the knee was taken out of extension. All excess cement was removed from around the prosthesis. I then trialed the knee with a 10 mm insert. Flexion and extension gaps were appropriate. The knee was stable. It came into full extension. I decided to go forward with a 10 mm cross-linked, cruciate-retaining tibial insert. Polyethylene was then placed onto the tibial tray and locked into place. The knee was then reduced. The knee was again further irrigated with sterile saline solution with antibiotic added. The tourniquet was then deflated. Total tourniquet time for the procedure was 52 minutes at 250 mmHg. Final components were Maykel Persona size 8 cruciate-retaining femoral component, a size E tibial tray, a 10 mm medial-congruent, cruciate-retaining polyethylene insert and a 29 x 8 mm patella. I then proceeded with closure. Again the knee was thoroughly irrigated. The quadriceps tendon and the medial retinaculum were reapproximated with #2 Ethibond suture. The extensor mechanism was then closed with a running #2 Quill suture. Subcutaneous tissues were closed with 2-0 Vicryl interrupted suture. The skin was closed with a running 3-0 Quill suture. Dermabond was applied to the incision. Sterile compressive dressings were then applied. All sponge and needle counts were deemed correct prior to closure. The patient tolerated the procedure without apparent complication. He was transferred to the recovery room in stable condition. MMODL / IJN: [id number] /
[2021-06-28] MEDS ORDERED: SENNOSIDES-DOCUSATE SODIUM 1 EACH TAB PO SCH (21:00)
[2021-06-28] MEDS: ASPIRIN 81 MG PO SCH (21:42)
[2021-06-28] MEDS: HYDROcodone/APAP 10-325MG 1 EACH TAB PO PRN (21:42)
[2021-06-29] MEDS ORDERED: NITROGLYCERIN SL TABS 0.4 MG TAB SUBLINGUAL PRN (07:24)
[2021-06-29] MEDS: ASPIRIN 81 MG PO SCH (07:31)
[2021-06-29] MEDS: LACTATED RINGERS 1,000 ML IV SCH (07:34)
[2021-06-29] MEDS ORDERED: carvediloL 12.5 MG TAB PO SCH (07:45)
[2021-06-29 07:54] LABS: African American GFR (CKD) 27 (>60 ml/min/1.73 sqM); Anion Gap 6 mmol/L; Blood Urea Nitrogen 35 mg/dL (9-20); Calcium 8.3 mg/dL (8.4-10.2); Carbon Dioxide 27 mmol/L (22-30); Chloride 101 mmol/L (98-107); Glucose 223 mg/dL (74-99); Magnesium 2.2 mg/dL (1.6-2.3); Non-African American GFR(CKD) 23 (>60 ml/min/1.73 sqM); Potassium 4.6 mmol/L (3.5-5.1); Sodium 134 mmol/L (137-145)
--- NOTE | 2021-06-29 08:16 | P.PN ---
Progress Note - Text 06/29/21 631am 71-year-old male status post total knee replacement by Dr. Dos Santos. Patient has an On-Q pump for postop pain control and had also received an ipack block, patient has a VAS of 1 dressing clean dry and intact. On-Q pump solution is running at 8 mL an hour. Plan to continue On-Q pump infusion
[2021-06-29 08:30] VITALS: BP 172/55; PULSE 70; RESP 16; TEMP 98.1
[2021-06-29 08:53] LABS: Basophils # (A) 0.02 X 10*3/uL (0.00-0.10); Basophils % (A) 0.2 %; Eosinophils # (A) 0.01 X 10*3/uL (0.04-0.35); Eosinophils % (A) 0.1 %; HCT 27.5 % (39.6-50.0); HGB 8.8 g/dL (13.0-17.0); Lymphocytes # (A) 0.88 X 10*3/uL (0.90-5.00); Lymphocytes % (A) 7.6 %; MCH 29.3 pg (27.0-32.0); MCV 91.7 fL (80.0-97.0); Mean Platelet Volume 11.7 fL (9.5-12.2); Monocytes # (A) 0.87 X 10*3/uL (0.20-1.00); Monocytes % (A) 7.5 %; Neutrophils # (A) 9.77 X 10*3/uL (1.80-7.70); Neutrophils % (A) 83.9 %; Platelet Count 208 X 10*3/uL (140-440); RDW 12.1 % (11.5-14.5); WBC 11.63 X 10*3/uL (4.50-10.00)
[2021-06-29] MEDS: HYDROcodone/APAP 10-325MG 1 EACH TAB PO PRN (08:55)
[2021-06-29] MEDS ORDERED: FLUoxetine HCL 20 MG CAP PO SCH (09:00)
[2021-06-29] MEDS ORDERED: buPROPion SR 150 MG TABLET.ER PO SCH (09:00)
[2021-06-29] MEDS ORDERED: ATORVASTATIN 20 MG TAB PO SCH (09:00)
[2021-06-29] MEDS ORDERED: CLOPIDOGREL 75 MG TAB PO SCH (09:00)
[2021-06-29] MEDS ORDERED: FERROUS SULFATE 325 MG TAB PO SCH (09:00)
[2021-06-29] MEDS ORDERED: CHOLECALCIFEROL 25 MCG (1000 IU) TABLET PO SCH (09:00)
--- NOTE | 2021-06-29 09:00 | P.CONS ---
History of Present Illness - History of Present Illness This is a pleasant 71 years old male with past medical history of CVA/TIA, Di abetes Mellitus, GERD, Hyperlipidemia, Hypertension, Osteoarthritis ,Sleep Apnea/CPAP, chronic kidney disease, depression Was admitted for right total knee replacement and arthroplasty. She is postop day #1 He is sitting in chair pleasant comfortable, is complaining of from minimal pain in his right knee after he did some THIS morning with physical therapist. But does not very bad. No chest pain or dyspnea or coughing. No breathing difficulty. No abdominal pain or vomiting or diarrhea. He had regular bowel movement yesterday. He denies smoking, alcohol or illicit tracts He has history of chronic kidney disease and he supposed to follow up with Dr. Burks and ask staff to make appointment for him as his stem for follow-up is due, patient is made aware that his creatinine is 2.6 this morning which is similar to about 2 weeks ago. No urinary complaints or per pubic discomfort or tenderness Vitals are stable, blood pressure is slightly elevated. Glucose controlled on coronal far as not detected Labs from 06/15/2021 are reviewed Showing unremarkable CBC except for mild anemia with hemoglobin 10.5. INR 0.9 Creatinine elevated at 2.6, unknown baseline, 1 unit earlier it was 1.5 Urine analysis showing 2+ protein Review of Systems CONSTITUTIONAL: No fever, no malaise, no fatigue. HEENT: No recent visual problems or hearing problems. Denied any sore throat. CARDIOVASCULAR: No orthopnea, PND, no palpitations, no syncope. PULMONARY: No shortness of breath, no cough, no hemoptysis. GASTROINTESTINAL: No diarrhea, no nausea, no vomiting, no abdominal pain. Normoactive bowel sounds. NEUROLOGICAL: No headaches, no weakness, no numbness. HEMATOLOGICAL: Denies any bleeding or petechiae. GENITOURINARY: Denies any burning micturition, frequency, or urgency. MUSCULOSKELETAL/RHEUMATOLOGICAL: Denies any joint pain, swelling, or any muscle pain. ENDOCRINE: Denies any polyuria or polydipsia. Past Medical History Past Medical History: CVA/TIA, Diabetes Mellitus, GERD/Reflux, Hyperlipidemia, Hypertension, Osteoarthritis (OA), Renal Disease, Sleep Apnea/CPAP/BIPAP Additional Past Medical History / Comment(s): Hx CVA 03/2018, "right side finnicky sometimes still", Chronic kidney disease, CPAP use. History of Any Multi-Drug Resistant Organisms: None Reported Past Surgical History: Heart Catheterization Additional Past Surgical History / Comment(s): Bilateral Cataract surgery. Past Anesthesia/Blood Transfusion Reactions: No Reported Reaction Date of Last Stent Placement:: 06/28/20 Past Psychological History: Depression Smoking Status: Never smoker Past Alcohol Use History: None Reported Past Drug Use History: None Reported - Past Family History Father Family Medical History: Cancer Additional Family Medical History / Comment(s): Colon Cancer. Sister(s) Family Medical History: Cancer Additional Family Medical History / Comment(s): Breast cancer. Medications and Allergies Home Medications Medication Instructions Recorded Confirmed Type Aspirin [Adult Low Dose Aspirin EC] 81 mg PO DAILY 06/27/20 06/28/21 History Cholecalciferol [Vitamin D3 (25 2,000 unit PO DAILY 06/27/20 06/28/21 History Mcg = 1000 Iu)] Doxazosin [Cardura] 2 mg PO HS 06/27/20 06/28/21 History FLUoxetine HCL [PROzac] 40 mg PO DAILY 06/27/20 06/28/21 History Ferrous Sulfate [Feosol] 325 mg PO BID 06/27/20 06/28/21 History Insulin Glargine [Lantus Vial] 60 unit SQ HS 06/27/20 06/28/21 History calcitrioL [Calcitriol] 0.25 mcg PO SUWE 06/27/20 06/28/21 History Carvedilol [Coreg] 12.5 mg PO BID 06/28/20 06/28/21 History Insulin Lispro [humaLOG Kwikpen] 0 unit SQ ACHS PRN 06/28/20 06/28/21 History buPROPion HCL [buPROPion HCL SR] 150 mg PO DAILY 06/28/20 06/28/21 History Clopidogrel [Plavix] 75 mg PO DAILY #90 tab 06/29/20 06/28/21 Rx Nitroglycerin Sl Tabs [Nitrostat] 0.4 mg SUBLINGUAL Q5M PRN #1 bottle 06/29/20 06/28/21 Rx Multivitamins, Thera [Multivitamin 1 tab PO DAILY 06/22/21 06/28/21 History (formulary)] NIFEdipine [Procardia XL] 60 mg PO DAILY 06/22/21 06/28/21 History Rosuvastatin [Crestor] 30 mg PO DAILY 06/22/21 06/28/21 History hydrALAZINE HCL [Apresoline] 50 mg PO BID 06/22/21 06/28/21 History Aspirin [Adult Low Dose Aspirin EC] 81 mg PO BID #60 tab 06/28/21 Rx Docusate [Colace] 100 mg PO BID #60 capsule 06/28/21 Rx HYDROcodone/APAP 7.5-325MG [[place] 1 - 2 each PO Q6HR PRN #42 tab 06/28/21 Rx 7.5-325] Allergies Allergy/AdvReac Type Severity Reaction Status Date / Time No Known Allergies Allergy Verified 06/28/21 10:59 Physical Exam Vitals: Vital Signs Temp Pulse Pulse Resp BP BP Pulse Ox 06/29/21 08:00 98.1 F 70 16 172/55 94 L 06/29/21 02:01 98.0 F 81 152/65 95 06/28/21 21:42 82 17 06/28/21 20:03 98.2 F 82 163/65 91 L 06/28/21 18:37 97.7 F 74 17 168/77 93 L 06/28/21 16:30 59 L 12 163/74 97 06/28/21 15:24 58 L 16 155/72 99 06/28/21 15:09 58 L 16 170/72 99 06/28/21 14:53 56 L 16 160/72 98 06/28/21 14:39 56 L 16 150/67 100 06/28/21 14:23 97.3 F L 57 L 12 144/65 100 06/28/21 11:48 55 L 16 148/65 99 06/28/21 11:21 98.0 F 61 16 170/71 95 Intake and Output 06/28/21 06/29/21 06/29/21 22:59 06:59 14:59 Intake Total 300 Output Total 500 820 Balance -200 -820 Intake: Oral 300 Output: Urine 500 820 Other: Voiding Method Urinal # Voids 3 # Bowel Movements 0 Weight 116.8 kg GENERAL: The patient is alert and oriented x3, not in any acute distress. Well developed, well nourished. HEENT: Pupils are round and equally reacting to light. EOMI. No scleral icterus. No conjunctival pallor. Normocephalic, atraumatic. No pharyngeal erythema. No thyromegaly. CARDIOVASCULAR: S1 and S2 present. No murmurs, rubs, or gallops. PULMONARY: Chest is clear to auscultation, no wheezing or crackles. ABDOMEN: Soft, nontender, nondistended, normoactive bowel sounds. No palpable organomegaly. MUSCULOSKELETAL: No joint swelling or deformity. -EXTREMITIES: No cyanosis, clubbing, or pedal edema. Status post right knee surgery with wound is closed and in a dressing, rest of exam is deferred to the surgery primary team NEUROLOGICAL: Gross neurological examination did not reveal any focal deficits. SKIN: No rashes. No petechiae Results CBC & Chem 7: 06/29/21 06:19 06/29/21 06:19 Labs: Abnormal Lab Results - Last 24 Hours (Table) 06/28/21 06/28/21 06/29/21 Range/Units 11:19 14:55 06:19 WBC 11.63 H (4.50-10.00) X 10*3/uL RBC 3.00 L (4.40-5.60) X 10*6/uL Hgb 8.8 L (13.0-17.0) g/dL Hct 27.5 L (39.6-50.0) % Immature Gran # 0.08 H (0.00-0.04) X 10*3/uL Neutrophils # 9.77 H (1.80-7.70) X 10*3/uL Lymphocytes # 0.88 L (0.90-5.00) X 10*3/uL Eosinophils # 0.01 L (0.04-0.35) X 10*3/uL Sodium (137-145) mmol/L BUN (9-20) mg/dL Creatinine (0.66-1.25) mg/dL Glucose (74-99) mg/dL POC Glucose (mg/dL) 109 H 121 H (75-99) mg/dL Calcium (8.4-10.2) mg/dL 06/29/21 Range/Units 06:19 WBC (4.50-10.00) X 10*3/uL RBC (4.40-5.60) X 10*6/uL Hgb (13.0-17.0) g/dL Hct (39.6-50.0) % Immature Gran # (0.00-0.04) X 10*3/uL Neutrophils # (1.80-7.70) X 10*3/uL Lymphocytes # (0.90-5.00) X 10*3/uL Eosinophils # (0.04-0.35) X 10*3/uL Sodium 134 L (137-145) mmol/L BUN 35 H (9-20) mg/dL Creatinine 2.64 H (0.66-1.25) mg/dL Glucose 223 H (74-99) mg/dL POC Glucose (mg/dL) (75-99) mg/dL Calcium 8.3 L (8.4-10.2) mg/dL Assessment and Plan Assessment: Severe osteoarthritis of the right knee status post right total knee arthroplasty Chronic kidney disease, stage III Diabetes mellitus Hypertension Hyperlipidemia History of CVA/TIA History of GERD History of osteoarthritis History of sleep apnea on CPAP Chronic kidney disease Depression, not in active issue. Plan: This is a pleasant 71 years old male who presents for right total knee arthroplasty Continue with postop care Discussed with staff to make appointment for the patient with his clinical appeals auditor in 1 week upon his request patient looks medically stable Labs and medication were reviewed.. Continue same treatment. Continue with symptomatic treatment. Resume home medication. Monitor lytes and vitals. DVT and GI prophylaxis. Further recommendations as per clinical course of the patient DVT prophylaxis and pain management is deferred to the primary surgery team PT/OT: Pending Thank you for consulting us , we will follow up with you
--- NOTE | 2021-06-29 10:30 | P.DS ---
Providers Expected date of discharge: 06/29/21 Attending physician: Erik Dos Santos Consults: 06/28/21 09:54 Consult Physician Routine Consulting Provider: Tiffanie Boyd Consult Reason/Comments: post op medical management Do you want consulting provider notified?: Yes Primary care physician: Leigha Martinez Chano - Discharge Diagnosis(es) (1) Osteoarthritis of right knee Patient was admitted to the OR on 06/28/21 to undergo a right total knee arthroplasty. He had failed conservative measures as an outpatient and desired to proceed with elective surgery after given informed consent. He underwent the above procedure which he tolerated well without complication. Postoperative hospital course has remained without complication. On day of discharge he is afebrile, vital signs stable, labs within acceptable ranges, tolerating by mouth meds and diet, voiding without difficulty, positive flatus, denies abdominal pain or calf pain, pain is controlled on oral pain medication and has no new complaints. Wound is benign, neurovascular status is intact, calf is soft and nontender, abdomen soft and nontender. Review of systems is negative for numbness, tingling, fever, chills, chest pain, shortness of breath, nausea, vomiting, dizziness, headaches, slurred speech or other. Current Visit: Yes Status: Acute Priority: Medium Procedures: Right TKA Patient Condition at Discharge: Good Plan - Discharge Summary Discharge Rx Participant: No New Discharge Prescriptions: New Docusate [Colace] 100 mg PO BID #60 capsule HYDROcodone/APAP 7.5-325MG [[place] 7.5-325] 1 - 2 each PO Q6HR PRN #42 tab PRN Reason: Pain Aspirin [Adult Low Dose Aspirin EC] 81 mg PO BID #60 tab No Action Ferrous Sulfate [Feosol] 325 mg PO BID FLUoxetine HCL [PROzac] 40 mg PO DAILY Doxazosin [Cardura] 2 mg PO HS Insulin Glargine [Lantus Vial] 60 unit SQ HS Cholecalciferol [Vitamin D3 (25 Mcg = 1000 Iu)] 2,000 unit PO DAILY calcitrioL [Calcitriol] 0.25 mcg PO SUWE Aspirin [Adult Low Dose Aspirin EC] 81 mg PO DAILY buPROPion HCL [buPROPion HCL SR] 150 mg PO DAILY Carvedilol [Coreg] 12.5 mg PO BID Insulin Lispro [humaLOG Kwikpen] 0 unit SQ ACHS PRN PRN Reason: sliding scale Clopidogrel [Plavix] 75 mg PO DAILY #90 tab Nitroglycerin Sl Tabs [Nitrostat] 0.4 mg SUBLINGUAL Q5M PRN #1 bottle PRN Reason: Chest Pain Multivitamins, Thera [Multivitamin (formulary)] 1 tab PO DAILY NIFEdipine [Procardia XL] 60 mg PO DAILY hydrALAZINE HCL [Apresoline] 50 mg PO BID Rosuvastatin [Crestor] 30 mg PO DAILY Discharge Medication List Aspirin [Adult Low Dose Aspirin EC] 81 mg PO DAILY 06/27/20 [History] Cholecalciferol [Vitamin D3 (25 Mcg = 1000 Iu)] 2,000 unit PO DAILY 06/27/20 [History] Doxazosin [Cardura] 2 mg PO HS 06/27/20 [History] FLUoxetine HCL [PROzac] 40 mg PO DAILY 06/27/20 [History] Ferrous Sulfate [Feosol] 325 mg PO BID 06/27/20 [History] Insulin Glargine [Lantus Vial] 60 unit SQ HS 06/27/20 [History] calcitrioL [Calcitriol] 0.25 mcg PO SUWE 06/27/20 [History] Carvedilol [Coreg] 12.5 mg PO BID 06/28/20 [History] Insulin Lispro [humaLOG Kwikpen] 0 unit SQ ACHS PRN 06/28/20 [History] buPROPion HCL [buPROPion HCL SR] 150 mg PO DAILY 06/28/20 [History] Clopidogrel [Plavix] 75 mg PO DAILY #90 tab 06/29/20 [Rx] Nitroglycerin Sl Tabs [Nitrostat] 0.4 mg SUBLINGUAL Q5M PRN #1 bottle 06/29/20 [ Rx] Multivitamins, Thera [Multivitamin (formulary)] 1 tab PO DAILY 06/22/21 [History] NIFEdipine [Procardia XL] 60 mg PO DAILY 06/22/21 [History] Rosuvastatin [Crestor] 30 mg PO DAILY 06/22/21 [History] hydrALAZINE HCL [Apresoline] 50 mg PO BID 06/22/21 [History] Aspirin [Adult Low Dose Aspirin EC] 81 mg PO BID #60 tab 06/28/21 [Rx] Docusate [Colace] 100 mg PO BID #60 capsule 06/28/21 [Rx] HYDROcodone/APAP 7.5-325MG [[place] 7.5-325] 1 - 2 each PO Q6HR PRN #42 tab 06/28/21 [Rx] Follow up Appointment(s)/Referral(s): [facility], [NON-STAFF] - As Needed ([facility] will call you to schedule your home physical therapy visits. ) Stuart Burks DO [STAFF PHYSICIAN] - 07/30/21 9:20 am Erik Dos Santos MD [STAFF PHYSICIAN] - 07/10/21 10:15 am Activity/Diet/Wound Care/Special Instructions: Weight bear as tolerated May shower after 3 days if no bleeding Keep wound clean and dry Take meds as directed F/U with Dr. Dos Santos in office Discharge Disposition: HOME WITH HOME HEALTH SERVICES
[2021-06-29] MEDS: INSULIN ASPART (NovoLOG) 100 UNIT/ML VIAL SQ SCH ×2 (10:43→12:17)
[2021-06-29 11:50] LABS: Glucose,Whole Blood 275 mg/dL (75-99)
[2021-06-29] MEDS ORDERED: MULTIVITAMINS, THERA 1 EACH TAB PO SCH (12:00)
[2021-06-29] MEDS ORDERED: INSULIN DETEMIR (LEVEMIR) 100 UNIT/ML SYR SQ SCH (21:00)
[2021-06-29] MEDS ORDERED: DOXAZOSIN 2 MG TAB PO SCH (21:00)
== END 2021-06-29 12:32 | disposition home health service (06) ==
LOC: OR 10:33 → 4SSUR 14:23 → OR 06-29 12:32
PROVIDERS: ATTEND Orthopaedic Surgery Sports Medicine
DX: M17.9 Osteoarthritis of knee, unspecified (principal); M17.11 Unilateral primary osteoarthritis, right knee; E03.9 Hypothyroidism, unspecified; H91.90 Unspecified hearing loss, unspecified ear; F32.9 Major depressive disorder, single episode, unspecified; I25.10 Atherosclerotic heart disease of native coronary artery without angina pectoris; E11.22 Type 2 diabetes mellitus with diabetic chronic kidney disease; I12.9 Hypertensive chronic kidney disease with stage 1 through stage 4 chronic kidney disease, or unspecified chronic kidney disease; N18.9 Chronic kidney disease, unspecified; Z79.82 Long term (current) use of aspirin; Z79.4 Long term (current) use of insulin; Z20.822 Contact with and (suspected) exposure to COVID-19; Z79.899 Other long term (current) drug therapy; Z79.02 Long term (current) use of antithrombotics/antiplatelets
CPT/HCPCS: 97161; 64999; 64448; 76942; 80048; 83735; 85025; 88300; 87635; 73560; 27447; C1776; C1713; J2250; J1100; S0106; J0690 ×3; J2405; J3010; J2795 ×2; J2704; J1170

== ENCOUNTER 2021-09-21 08:07 | Inpatient (IN) | payer MEDICARE ==
[2021-09-21] MEDS ORDERED: ASPIRIN 81 MG PO STA (08:23)
[2021-09-21 08:48] LABS: Basophils # (A) 0.1 k/uL (0-0.2); Basophils % (A) 1 %; Eosinophils # (A) 0.3 k/uL (0-0.7); Eosinophils % (A) 4 %; HCT 29.4 % (39.0-53.0); HGB 9.9 gm/dL (13.0-17.5); Lymphocytes % (A) 13 %; MCH 29.7 pg (25.0-35.0); MCHC 33.7 g/dL (31.0-37.0); MCV 88.2 fL (80.0-100.0); Mean Platelet Volume 8.8; Monocytes # (A) 0.5 k/uL (0-1.0); Monocytes % (A) 6 %; Neutrophils % (A) 75 %; Platelet Count 226 k/uL (150-450); RBC 3.34 m/uL (4.30-5.90); RDW 13.1 % (11.5-15.5); WBC 7.9 k/uL (3.8-10.6)
[2021-09-21 08:58] LABS: Albumin 3.4 g/dL (3.5-5.0); Calcium 8.5 mg/dL (8.4-10.2); Magnesium 2.2 mg/dL (1.6-2.3); Potassium 4.3 mmol/L (3.5-5.1); Total Bilirubin 0.5 mg/dL (0.2-1.3); Total Protein 6.2 g/dL (6.3-8.2)
[2021-09-21 09:07] LABS: Partial Thromboplastin Time 24.9 sec (22.0-30.0); Prothrombin Time 10.6 sec (9.0-12.0)
--- NOTE | 2021-09-21 09:32 | XR ---
EXAMINATION TYPE: XR chest 2V DATE OF EXAM: 09/21/2021 COMPARISON: X-ray dated 07/26/2020 HISTORY: Chest heaviness TECHNIQUE: Frontal and lateral views of the chest are obtained. FINDINGS: Congested pulmonary vasculature with prominent interstitial marking which may suggest mild pulmonary edema. Suspected left basal linear pulmonary atelectasis. Questionable small pleural effusions. Grossly unremarkable lungs otherwise. No definite pneumothorax. Slightly increased cardiac transverse diameter. Degenerative changes of the thoracic spine with mild dextroscoliosis of the mid to lower t horacic spine. IMPRESSION: Suspected mild pulmonary edema, please correlate clinically for heart failure. Other incidental findi ngs as described above.
[2021-09-21] MEDS ORDERED: FUROSEMIDE 10 MG/ML 4 ML VIAL IV STA (09:38)
[2021-09-21] MEDS ORDERED: NALOXONE 0.4 MG/ML 1 ML VIAL IV PRN (10:05)
--- NOTE | 2021-09-21 10:12 | ED ---
General Adult HPI - General Chief complaint: Chest Pain Stated complaint: chest heaviness, SOB Time Seen by Provider: 09/21/21 08:16 Source: patient Mode of arrival: ambulatory Limitations: no limitations - History of Present Illness Initial comments: Patient is a 71-year-old male who presents emergency Department complaining of a one-week history of worsening shortness of breath, that acutely became worse over the last 2 days. Describes it as exertional dyspnea. Also describes chest pressure like sensation located over her chest when this occurs. Denies any fevers, cough. Denies any worsening lower extremity edema but does have a chronic level lower extremity edema that is unchanged. Denies orthopnea. Denies paroxysmal nocturnal dyspnea. Is not on water pills at home. Denies any abdominal pain, nausea, vomiting. Has no other acute complaints at this time. Denies any sick contacts. No history of blood clots. Presents over concern for his worsening shortness of breath. Does have a cardiac history with a stent placed. Is not on blood thinners. - Related Data Home Medications Medication Instructions Recorded Confirmed Aspirin [Adult Low Dose Aspirin EC] 81 mg PO DAILY 06/27/20 09/21/21 Doxazosin [Cardura] 2 mg PO HS 06/27/20 09/21/21 FLUoxetine HCL [PROzac] 40 mg PO DAILY 06/27/20 09/21/21 calcitrioL [Calcitriol] 0.25 mcg PO SUWE 06/27/20 09/21/21 Insulin Lispro [humaLOG Kwikpen] See Protocol SQ ACHS PRN 06/28/20 09/21/21 buPROPion HCL [buPROPion HCL SR] 150 mg PO DAILY 06/28/20 09/21/21 Multivitamins, Thera [Multivitamin 1 tab PO DAILY 06/22/21 09/21/21 (formulary)] NIFEdipine [Procardia XL] 60 mg PO DAILY 06/22/21 09/21/21 hydrALAZINE HCL [Apresoline] 50 mg PO BID 06/22/21 09/21/21 Carvedilol [Coreg] 25 mg PO BID 09/21/21 09/21/21 Insulin Glargine,Hum.rec.anlog 60 unit SQ HS 09/21/21 09/21/21 [Lantus Solostar Pen] Rosuvastatin Calcium 10 mg PO DAILY 09/21/21 09/21/21 Previous Rx's Medication Instructions Recorded Clopidogrel [Plavix] 75 mg PO DAILY #90 tab 06/29/20 Nitroglycerin Sl Tabs [Nitrostat] 0.4 mg SUBLINGUAL Q5M PRN #1 bottle 06/29/20 Allergies Allergy/AdvReac Type Severity Reaction Status Date / Time Iodine and Iodide Containing AdvReac kidney Verified 09/21/21 11:50 Produc issues Review of Systems ROS Statement: Those systems with pertinent positive or pertinent negative responses have been documented in the HPI. Review of Systems: CONST: Denies fever EYES: Denies blurry vision ENT: Denies nasal congestion C/V: Denies Chest pain RESP: Endorses exertional dyspnea GI: Denies abdominal pain : Denies dysuria SKIN: Denies rash. MSK: Denies joint pain. NEURO: Denies headache ROS Other: All systems not noted in ROS Statement are negative. Past Medical History Past Medical History: CVA/TIA, Diabetes Mellitus, GERD/Reflux, Hyperlipidemia, Hypertension, Osteoarthritis (OA), Renal Disease, Sleep Apnea/CPAP/BIPAP Additional Past Medical History / Comment(s): Hx CVA 03/2018, "right side michaela icky sometimes still", Chronic kidney disease, CPAP use. History of Any Multi-Drug Resistant Organisms: None Reported Past Surgical History: Heart Catheterization Additional Past Surgical History / Comment(s): Bilateral Cataract surgery. Past Anesthesia/Blood Transfusion Reactions: No Reported Reaction Past Psychological History: Depression Smoking Status: Never smoker Past Alcohol Use History: None Reported Past Drug Use History: None Reported - Past Family History Father Family Medical History: Cancer Additional Family Medical History / Comment(s): Colon Cancer. Sister(s) Family Medical History: Cancer Additional Family Medical History / Comment(s): Breast cancer. General Exam - General Exam Comments Initial Comments: General: Appears in no acute distress. HEAD: Normal with no signs of head trauma. EYES: PERRLA, EOMI, conjunctiva normal, no discharge. ENT: Hearing grossly intact, normal oropharynx. RESPIRATORY: Clear breath sounds bilaterally. No wheezes, rales, or rhonchi. Not hypoxic. No increased work of breathing. C/V: Regular rate and rhythm. S1 and S2 auscultated. Peripheral pulses 2+ intact throughout. Patient does have approximately 1-2+ pitting edema bilateral lower extremities that is symmetrical. Edema to the level of the mid calf and knee. ABD: Abd is soft, nontender, nondistended EXT: Normal range of motion, no obvious deformity SKIN: No rashes or lesions observed on exposed skin. NEURO: Alert and oriented 4. No focal deficits. Limitations: no limitations Course Vital Signs 09/21/21 09/21/21 09/21/21 08:13 11:29 14:28 Temperature 98.6 F Pulse Rate 56 L 53 L 61 Respiratory 20 20 20 Rate Blood Pressure 139/54 153/68 172/64 O2 Sat by Pulse 94 L 95 94 L Oximetry Medical Decision Making - Medical Decision Making Based on patient's presentation and physical exam, I'm concerned for cardiopulmonary etiology for his current symptoms. As he has no acute changes in terms of edema, and primary complaint is exertional dyspnea, we will obtain a screening d-dimer is patient does not perk out. This is in addition to troponin, BNP and cardiac workup. He'll be given an aspirin. Patient was in agreement this plan. EKG showed no signs of acute ischemia. Chest x-ray revealed mild to moderate pulmonary edema likely secondary to heart failure. Laboratory studies are remarkable for chronic anemia with hemoglobin 9.9 which is stable. D-dimer is elevated to 3.13. Patient has CK D appears to be at his baseline with be one of 40 and creatinine of 2.56. Troponin is within normal limits. BNP is elevated to 2200. Covid is negative. Patient will be administered a dose of IV Lasix and be started on 40 mg IV Lasix twice a day. Echo was ordered. I did discuss with him, that I would like to obtain imaging to rule out PE at this time, however as the patient appears to be having an active heart failure exacerbation, and vital signs remain within normal limits and stable, my suspicion is on the lower end. VQ scan is ordered and is scheduled for later this morning, however I do not believe that we need to empirically start the patient on heparin at this time. He was in agreement with this plan. Cardiology was consulted to evaluate the patient. I spoke with the admitting team under Dr. Godwin who was in agreement this plan, including on holding heparin and following up with the VQ scan. Patient was therefore admitted in serous condition for likely new onset heart failure - Lab Data Result diagrams: 09/21/21 08:31 09/21/21 08:31 Lab Results 09/21/21 09/21/21 09/21/21 Range/Units 08:31 08:31 08:31 WBC 7.9 (3.8-10.6) k/uL RBC 3.34 L (4.30-5.90) m/uL Hgb 9.9 L (13.0-17.5) gm/dL Hct 29.4 L (39.0-53.0) % MCV 88.2 (80.0-100.0) fL MCH 29.7 (25.0-35.0) pg MCHC 33.7 (31.0-37.0) g/dL RDW 13.1 (11.5-15.5) % Plt Count 226 (150-450) k/uL MPV 8.8 Neutrophils % 75 % Lymphocytes % 13 % Monocytes % 6 % Eosinophils % 4 % Basophils % 1 % Neutrophils # 6.0 (1.3-7.7) k/uL Lymphocytes # 1.0 (1.0-4.8) k/uL Monocytes # 0.5 (0-1.0) k/uL Eosinophils # 0.3 (0-0.7) k/uL Basophils # 0.1 (0-0.2) k/uL PT 10.6 (9.0-12.0) sec INR 1.0 (<1.2) APTT 24.9 (22.0-30.0) sec D-Dimer 3.13 H (<0.60) mg/L FEU Sodium 136 L (137-145) mmol/L Potassium 4.3 (3.5-5.1) mmol/L Chloride 106 (98-107) mmol/L Carbon Dioxide 24 (22-30) mmol/L Anion Gap 6 mmol/L BUN 40 H (9-20) mg/dL Creatinine 2.56 H (0.66-1.25) mg/dL Est GFR (CKD-EPI)AfAm 28 (>60 ml/min/1.73 sqM) Est GFR (CKD-EPI)NonAf 24 (>60 ml/min/1.73 sqM) Glucose 148 H (74-99) mg/dL Calcium 8.5 (8.4-10.2) mg/dL Magnesium 2.2 (1.6-2.3) mg/dL Total Bilirubin 0.5 (0.2-1.3) mg/dL AST 20 (17-59) U/L ALT 18 (4-49) U/L Alkaline Phosphatase 90 (38-126) U/L Troponin I (0.000-0.034) ng/mL NT-Pro-B Natriuret Pep pg/mL Total Protein 6.2 L (6.3-8.2) g/dL Albumin 3.4 L (3.5-5.0) g/dL Coronavirus (PCR) (Not Detectd) 09/21/21 09/21/21 09/21/21 Range/Units 08:31 08:31 08:33 WBC (3.8-10.6) k/uL RBC (4.30-5.90) m/uL Hgb (13.0-17.5) gm/dL Hct (39.0-53.0) % MCV (80.0-100.0) fL MCH (25.0-35.0) pg MCHC (31.0-37.0) g/dL RDW (11.5-15.5) % Plt Count (150-450) k/uL MPV Neutrophils % % Lymphocytes % % Monocytes % % Eosinophils % % Basophils % % Neutrophils # (1.3-7.7) k/uL Lymphocytes # (1.0-4.8) k/uL Monocytes # (0-1.0) k/uL Eosinophils # (0-0.7) k/uL Basophils # (0-0.2) k/uL PT (9.0-12.0) sec INR (<1.2) APTT (22.0-30.0) sec D-Dimer (<0.60) mg/L FEU Sodium (137-145) mmol/L Potassium (3.5-5.1) mmol/L Chloride (98-107) mmol/L Carbon Dioxide (22-30) mmol/L Anion Gap mmol/L BUN (9-20) mg/dL Creatinine (0.66-1.25) mg/dL Est GFR (CKD-EPI)AfAm (>60 ml/min/1.73 sqM) Est GFR (CKD-EPI)NonAf (>60 ml/min/1.73 sqM) Glucose (74-99) mg/dL Calcium (8.4-10.2) mg/dL Magnesium (1.6-2.3) mg/dL Total Bilirubin (0.2-1.3) mg/dL AST (17-59) U/L ALT (4-49) U/L Alkaline Phosphatase (38-126) U/L Troponin I 0.013 (0.000-0.034) ng/mL NT-Pro-B Natriuret Pep 2210 pg/mL Total Protein (6.3-8.2) g/dL Albumin (3.5-5.0) g/dL Coronavirus (PCR) Not Detected (Not Detectd) - EKG Data -: EKG Interpreted by Me EKG Comments: 12-lead Electrocardiogram Interpretation Note EKG was reviewed and interpreted by myself. 12-lead ECG performed at 0821 is interpreted by me as revealing normal sinus rhythm at a rate of 52 beats per minute. [place] is normal.. Intervals 192 ms, QRS duration is 167 seconds, QTC is 477 ms.. There were no ST or T wave abnormalities to suggest myocardial ischemia or injury. R wave progression across the precordium was satisfactory. By my interpretation this EKG is non-diagnostic for acute ischemia. There is a good deal of baseline artifact present, we'll consider repeat EKG if needed. Disposition Clinical Impression: Acute exacerbation of congestive heart failure, Dyspnea, Elevated d-dimer Disposition: ADMITTED IP TO THIS HOSP Condition: Serious
--- NOTE | 2021-09-21 12:01 | ECHOF ---
Referral Reason:new onset heart failure MEASUREMENTS -------- HEIGHT: 182.9 cm WEIGHT: 113.4 kg BP: 139/54 RVIDd: 4.3 cm (< 3.3) IVSd: 1.6 cm (0.6 - 1.1) LVIDd: 4.3 cm (3.9 - 5.3) LVPWd: 1.7 cm (0.6 - 1.1) IVSs: 2.0 cm LVIDs: 2.6 cm LVPWs: 1.9 cm LAESV Index (A-L): 36.81 ml/m Ao Diam: 3.4 cm (2.0 - 3.7) AV Cusp: 2.3 cm (1.5 - 2.6) LA Diam: 4.7 cm (2.7 - 3.8) MV EXCURSION: 30.937 mm (> 18.000) MV EF SLOPE: 80 mm/s (70 - 150) EPSS: 0.2 cm RAP: 5.00 mmHg RVSP: 37.79 mmHg TAPSE: 32.79 mm FINDINGS -------- Sinus rhythm. This was a technically difficult study with suboptimal apical views. The left ventricular size is normal. There is moderate concentric left ventricular hypertrophy. O verall left ventricular systolic function is normal with, an EF between 55 - 60 %. The right ventricle is moderate to severely enlarged. LA is moderately dilated 34-39 ml/m2 The right atrium was not well visualized. 5.0mg of Lumason was utilized for enhancement of images Interatrial and interventricular septum intact. There is no evidence of aortic regurgitation. There is no evidence of aortic stenosis. Mild mitral regurgitation is present. Mild tricuspid regurgitation present. There is mild pulmonary hypertension. The right ventricular systolic pressure, as measured by Doppler, is 37.79mmHg. There is no pulmonic regurgitation present. The aortic root size is normal. IVC Not well visulized. Echo free space represents a pericardial fat pad. There is no pericardial effusion. CONCLUSIONS -------- 1. The left ventricular size is normal. 2. There is moderate concentric left ventricular hypertrophy. 3. Overall left ventricular systolic function is normal with, an EF between 55 - 60 %. 4. The right ventricle is moderate to severely enlarged. 5. LA is moderately dilated 34-39 ml/m2 6. Mild mitral regurgitation is present. 7. Mild tricuspid regurgitation present. 8. There is mild pulmonary hypertension. 9. The right ventricular systolic pressure, as measured by Doppler, is 37.79mmHg. HEAD BAKER: Kasia Antoine RDCS
--- NOTE | 2021-09-21 12:05 | P.CRDCN ---
History of Present Illness Consult date: 09/21/21 History of present illness: Patient is a 71 year old male patient has a known history of coronary artery disease status post angioplasty to the circumflex in June 2020 and total occlusion of the RCA hypertension, hyperlipidemia, diabetes, chronic renal disease, CVA. Patient sees Dr. Rosario in the office. We have been asked to see in consultation for new onset heart failure. Patient has been having increased shortness of breath on exertion over the last week, becoming increasingly worse over the last 2-3 days. He denies chest pain palpitations, or syncope. Patient has mild lower extremity edema. His chest x- ray shows suspected pulmonary edema correlated for congestive heart failure. Pro BNP was 2210. EKG showed sinus bradycardia with ventricular rate of 50 to with left axis deviation and a right bundle-branch block. Patient's d-dimer was elevated at 3.1. Due to elevated creatinine at 2.56 patient will have a VQ scan to rule out pulmonary embolism. trop negative x1. Heparin is on hold at this time until VQ scan has been resulted. Patient was started on IV Lasix 40 mg every 12. Patient's echo in May 2020 shows normal LV function with an ejection fraction 52%, mild inferobasal hypokinesis, mild mitral and tricuspid insufficiency, mild to moderate pulmonary hypertension 45mmHg. echocardiogram pending. Patient's current medications include aspirin 81 mg daily carvedilol 12.5 twice a day hydralazine 50 mg 3 times a day nifedipine ER 60 mg daily rosuvastatin 20 mg daily Plavix 75 mg daily Review of Systems REVIEW OF SYSTEMS At the time of my exam: CONSTITUTIONAL: Denies fever or chills. EYES: Negative for vision changes ENT: Negative for hearing loss CARDIOVASCULAR: Report exertional dyspnea. Denies chest pain, diaphoresis, orthopnea, PND or palpitations. VASCULAR: Lower extremity edema RESPIRATORY: Denies cough. GASTROINTESTINAL: Denies abdominal pain, diarrhea, constipation, nausea or vomit ing. MUSCULOSKELETAL: Denies myalgias. NEUROLOGIC: Denies numbness, tingling, headache or weakness. ENDOCRINE: Denies fatigue, weight change, polydipsia or polyurina. GENITOURINARY: Denies burning, hematuria or urgency with micturation. HEMATOLOGIC: Denies history of anemia or bleeding. DERMATOLOGY: Denies rash or skin sores PSYCH: Negative for depression or hallucinations. Past Medical History Past Medical History: CVA/TIA, Diabetes Mellitus, GERD/Reflux, Hyperlipidemia, Hypertension, Osteoarthritis (OA), Renal Disease, Sleep Apnea/CPAP/BIPAP Additional Past Medical History / Comment(s): Hx CVA 03/2018, "right side finnicky sometimes still", Chronic kidney disease, CPAP use. History of Any Multi-Drug Resistant Organisms: None Reported Past Surgical History: Heart Catheterization Additional Past Surgical History / Comment(s): Bilateral Cataract surgery. Past Anesthesia/Blood Transfusion Reactions: No Reported Reaction Past Psychological History: Depression Smoking Status: Never smoker Past Alcohol Use History: None Reported Past Drug Use History: None Reported - Past Family History Father Family Medical History: Cancer Additional Family Medical History / Comment(s): Colon Cancer. Sister(s) Family Medical History: Cancer Additional Family Medical History / Comment(s): Breast cancer. Medications and Allergies Home Medications Medication Instructions Recorded Confirmed Type Aspirin [Adult Low Dose Aspirin EC] 81 mg PO DAILY 06/27/20 09/21/21 History Doxazosin [Cardura] 2 mg PO HS 06/27/20 09/21/21 History FLUoxetine HCL [PROzac] 40 mg PO DAILY 06/27/20 09/21/21 History calcitrioL [Calcitriol] 0.25 mcg PO SUWE 06/27/20 09/21/21 History Insulin Lispro [humaLOG Kwikpen] See Protocol SQ ACHS PRN 06/28/20 09/21/21 H istory buPROPion HCL [buPROPion HCL SR] 150 mg PO DAILY 06/28/20 09/21/21 History Clopidogrel [Plavix] 75 mg PO DAILY #90 tab 06/29/20 09/21/21 Rx Nitroglycerin Sl Tabs [Nitrostat] 0.4 mg SUBLINGUAL Q5M PRN #1 bottle 06/29/20 09/21/21 Rx Multivitamins, Thera [Multivitamin 1 tab PO DAILY 06/22/21 09/21/21 History (formulary)] NIFEdipine [Procardia XL] 60 mg PO DAILY 06/22/21 09/21/21 History hydrALAZINE HCL [Apresoline] 50 mg PO BID 06/22/21 09/21/21 History Carvedilol [Coreg] 25 mg PO BID 09/21/21 09/21/21 History Insulin Glargine,Hum.rec.anlog 60 unit SQ HS 09/21/21 09/21/21 History [Lantus Solostar Pen] Rosuvastatin Calcium 10 mg PO DAILY 09/21/21 09/21/21 History Allergies Allergy/AdvReac Type Severity Reaction Status Date / Time Iodine and Iodide Containing AdvReac kidney Verified 09/21/21 11:50 Produc issues Physical Exam Vitals: Vital Signs Temp Pulse Resp BP Pulse Ox 09/21/21 08:13 98.6 F 56 L 20 139/54 94 L Intake and Output 09/20/21 09/21/21 09/21/21 22:59 06:59 14:59 Other: Weight 113.398 kg PHYSICAL EXAMINATION VITAL SIGNS: Reviewed CONSTITUTIONAL: No apparent distress. HEENT: Head is normocephalic. Pupils are equal, round. Sclerae anicteric. Mucous membranes of the mouth are moist. NECK: No JVD. No carotid bruit. RESPIRATORY: Lungs are clear to auscultation. No chest wall tenderness is noted on palpation or with deep breathing. CARDIAC: Regular rate and rhythm. S1, S2 heard. No murmurs, gallops or rub. ABDOMEN: Soft, nontender. EXTREMITIES: 2+ peripheral pulses, no calf tenderness. mild bilateral lower extremity edema NEUROLOGIC EXAMINATION: Patient is awake, alert and oriented x3. INTEGUMENTARY: Warm, absent for rashes or sores PSYCH: Negative for depression or hallucinations, mood appropriate. Results 09/22/21 08:44 09/22/21 08:44 Cardiac Enzymes 09/21/21 09/21/21 Range/Units 08:31 08:31 AST 20 (17-59) U/L Troponin I 0.013 (0.000-0.034) ng/mL Coagulation 09/21/21 Range/Units 08:31 PT 10.6 (9.0-12.0) sec APTT 24.9 (22.0-30.0) sec CBC 09/21/21 Range/Units 08:31 WBC 7.9 (3.8-10.6) k/uL RBC 3.34 L (4.30-5.90) m/uL Hgb 9.9 L (13.0-17.5) gm/dL Hct 29.4 L (39.0-53.0) % Plt Count 226 (150-450) k/uL Comprehensive Metabolic Panel 09/21/21 Range/Units 08:31 Sodium 136 L (137-145) mmol/L Potassium 4.3 (3.5-5.1) mmol/L Chloride 106 (98-107) mmol/L Carbon Dioxide 24 (22-30) mmol/L BUN 40 H (9-20) mg/dL Creatinine 2.56 H (0.66-1.25) mg/dL Glucose 148 H (74-99) mg/dL Calcium 8.5 (8.4-10.2) mg/dL AST 20 (17-59) U/L ALT 18 (4-49) U/L Alkaline Phosphatase 90 (38-126) U/L Total Protein 6.2 L (6.3-8.2) g/dL Albumin 3.4 L (3.5-5.0) g/dL Current Medications Generic Name Dose Route Start Last Admin Trade Name Freq PRN Reason Stop Dose Admin Furosemide 40 mg 09/21/21 21:00 Furosemide 10 Mg/Ml 4 Ml Vial IV Q12HR MULUGETA Heparin Sodium (Porcine) 5,000 unit 09/21/21 16:00 Heparin Sodium,Porcine/Pf 5,000 Unit/0.5 Ml Syringe SQ Q8HR MULUGETA Naloxone HCl 0.2 mg 09/21/21 10:05 Naloxone 0.4 Mg/Ml 1 Ml Vial IV Q2M PRN Opioid Reversal Intake and Output 09/20/21 09/21/21 09/21/21 22:59 06:59 14:59 Other: Weight 113.398 kg Patient Weight 09/22/21 06:59 Weight 113.398 kg 09/21/21 08:31 09/21/21 08:31 Assessment and Plan Assessment: new onset congestive heart failure, unspecified Coronary artery disease status post angioplasty Hypertension Dyslipidemia Insulin-dependent type 2 diabetes Chronic kidney disease stage III history of CVA Plan: Continue with IV Lasix 40 mg every 12 Continue with all other current cardiac medications Anticoagulation pending VQ scan Echocardiogram pending Continue with telemetry monitoring TALIA inhibitor not recommended due to chronic kidney disease Further recommendations based on clinical course The above impression and plan of care have been discussed and directed by the signing physician. Judy Javed, nurse practitioner, acting as scribe for signing physician.
[2021-09-21] MEDS ORDERED: NITROGLYCERIN SL TABS 0.4 MG TAB SUBLINGUAL PRN (12:21)
[2021-09-21] MEDS ORDERED: LORazepam 0.5 MG TAB PO PRN (12:23)
[2021-09-21] MEDS ORDERED: CALCIUM CARBONATE 500 MG CHEWABLE PO PRN (12:23)
[2021-09-21] MEDS ORDERED: ACETAMINOPHEN TAB 325 MG TAB PO PRN (12:23)
[2021-09-21] MEDS ORDERED: ONDANSETRON 4 MG/2 ML VIAL IVP PRN (12:23)
[2021-09-21] MEDS ORDERED: MELATONIN 3 MG TABLET PO PRN (12:23)
[2021-09-21] MEDS ORDERED: LACTULOSE 20 GM/30 ML CUP PO PRN (12:23)
[2021-09-21] MEDS: INSULIN ASPART (NovoLOG) 100 UNIT/ML VIAL SQ SCH ×2 (12:59→16:35)
--- NOTE | 2021-09-21 13:35 | P.HPIM ---
History of Present Illness H&P Date: 09/21/21 Chief Complaint: Short of breath This is a pleasant 71-year-old patient who follows with Dr. Juanjo Livingston. Chronic stable medical conditions include prior brain bleed with some right- sided weakness in 2018, but able to walk unassisted, diabetes, GERD, hypertension, hyperlipidemia, osteoarthritis, COPD, obstructive sleep apnea uses CPAP, CK D, depression. Patient presents to the ER with his . For about 4 days has been having increasing shortness of breath. Mainly with activity. No dizziness nor lightheadedness. No perspiration. Does feel tired and rundown. Since yesterday also noticed some chest tightness with activity. No radiation to arm or neck. Also associated with activity. Denies any fever or chills. No cough. Patient did have a stent placed by Dr. DE Rosario about a year ago. He also some chronic occlusion in the coronary arteries. Patient has chronic lower extremity edema. Review of systems: GEN.: Tired EYES: None HEENT: None NECK: None RESPIRATORY: As above CARDIOVASCULAR: As above GASTROINTESTINAL: None GENITOURINARY: None MUSCULOSKELETAL: Some joint pains LYMPHATICS: None HEMATOLOGICAL: None PSYCHIATRY: None NEUROLOGICAL: Chronic right-sided weakness Past medical history to include: Brain bleed with stroke causing some residual right-sided weakness, 2018, diabetes, GERD, hypertension, hyperlipidemia, prostatitis, COPD, obstructive sleep apnea uses CPAP, IBS, depression Social history: . No history of smoking or alcohol. 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 EYES: Pupils equal. Conjunctiva normal. HEENT: External appearance of nose and ears normal, oral cavity grossly normal. NECK: JVD not raised; masses not palpable. HEART: First and second heart sounds are normal; some edema. LUNGS: Respiratory rate increased; decreased breath sounds. ABDOMEN: Soft, nontender, liver spleen not palpable, no masses palpable. PSYCH: Alert and oriented x3; mood and affect normal. MUSCULOSKELETAL:No Clubbing/cyanosis;muscles-grossly intact. Evidence of OA NEUROLOGICAL: Cranial nerves grossly intact; no facial asymmetry, power and sensation grossly intact. LYMPHATICS: No lymph nodes palpable in the axilla and neck INVESTIGATIONS, reviewed in the clinical context: EKG tracing personally reviewed by me: Sinus rhythm. Rate 52 Chest x-ray film personally reviewed by me-elevated right diaphragm. Prominent right hilar. Troponin I 0.013 White count 7.9 hemoglobin 9.9 platelets 226 potassium 4.3 BUN 40 creatinine 2.56 COVID 19: Not detected ProBNP 2210 Assessment and plan: -Patient presents with 4 days of increasing shortness of breath. Mainly with activity. Associated with chest tightness. Probable unstable angina. -Diabetes mellitus type 2, chronically on insulin Lantus 40 units subcu daily at bedtime. Follow Accu-Cheks. -Elevated right diaphragm. 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 Consult pulmonary. Resume home medications. Telemetry. Follow serial troponins. Consult cardiology. Fluoroscopy sniff test for right diaphragm elevation. Consult pulmonary for prominent right hilar. Past Medical History Past Medical History: CVA/TIA, Diabetes Mellitus, GERD/Reflux, Hyperlipidemia, Hypertension, Osteoarthritis (OA), Renal Disease, Sleep Apnea/CPAP/BIPAP Additional Past Medical History / Comment(s): Hx CVA 03/2018, "right side finnicky sometimes still", Chronic kidney disease, CPAP use. History of Any Multi-Drug Resistant Organisms: None Reported Past Surgical History: Heart Catheterization Additional Past Surgical History / Comment(s): Bilateral Cataract surgery. Past Anesthesia/Blood Transfusion Reactions: No Reported Reaction Past Psychological History: Depression Smoking Status: Never smoker Past Alcohol Use History: None Reported Past Drug Use History: None Reported - Past Family History Father Family Medical History: Cancer Additional Family Medical History / Comment(s): Colon Cancer. Sister(s) Family Medical History: Cancer Additional Family Medical History / Comment(s): Breast cancer. Medications and Allergies Home Medications Medication Instructions Recorded Confirmed Type Aspirin [Adult Low Dose Aspirin EC] 81 mg PO DAILY 06/27/20 09/21/21 History Doxazosin [Cardura] 2 mg PO HS 06/27/20 09/21/21 History FLUoxetine HCL [PROzac] 40 mg PO DAILY 06/27/20 09/21/21 History calcitrioL [Calcitriol] 0.25 mcg PO SUWE 06/27/20 09/21/21 History Insulin Lispro [humaLOG Kwikpen] See Protocol SQ ACHS PRN 06/28/20 09/21/21 History buPROPion HCL [buPROPion HCL SR] 150 mg PO DAILY 06/28/20 09/21/21 History Clopidogrel [Plavix] 75 mg PO DAILY #90 tab 06/29/20 09/21/21 Rx Nitroglycerin Sl Tabs [Nitrostat] 0.4 mg SUBLINGUAL Q5M PRN #1 bottle 06/29/20 09/21/21 Rx Multivitamins, Thera [Multivitamin 1 tab PO DAILY 06/22/21 09/21/21 History (formulary)] NIFEdipine [Procardia XL] 60 mg PO DAILY 06/22/21 09/21/21 History hydrALAZINE HCL [Apresoline] 50 mg PO BID 06/22/21 09/21/21 History Carvedilol [Coreg] 25 mg PO BID 09/21/21 09/21/21 History Insulin Glargine,Hum.rec.anlog 60 unit SQ HS 09/21/21 09/21/21 History [Lantus Solostar Pen] Rosuvastatin Calcium 10 mg PO DAILY 09/21/21 09/21/21 History Allergies Allergy/AdvReac Type Severity Reaction Status Date / Time Iodine and Iodide Containing AdvReac kidney Verified 09/21/21 11:50 Produc issues Physical Exam Vitals: Vital Signs Temp Pulse Resp BP Pulse Ox 09/21/21 11:29 53 L 20 153/68 95 09/21/21 08:13 98.6 F 56 L 20 139/54 94 L Intake and Output 09/20/21 09/21/21 09/21/21 22:59 06:59 14:59 Other: Weight 113.398 kg Results CBC & Chem 7: 09/21/21 08:31 09/21/21 08:31 Labs: Abnormal Lab Results - Last 24 Hours (Table) 09/21/21 09/21/21 09/21/21 Range/Units 08:31 08:31 08:31 RBC 3.34 L (4.30-5.90) m/uL Hgb 9.9 L (13.0-17.5) gm/dL Hct 29.4 L (39.0-53.0) % D-Dimer 3.13 H (<0.60) mg/L FEU Sodium 136 L (137-145) mmol/L BUN 40 H (9-20) mg/dL Creatinine 2.56 H (0.66-1.25) mg/dL Glucose 148 H (74-99) mg/dL Total Protein 6.2 L (6.3-8.2) g/dL Albumin 3.4 L (3.5-5.0) g/dL Thrombosis Risk Factor Assmnt - Choose All That Apply Any of the Below Risk Factors Present?: Yes Each Factor Represents 1 point: Heart failure (<1month), Obesity (BMI >25) Other Risk Factors: Yes Each Risk Factor Represents 2 Points: Age 61-74 years Other congenital or acquired thrombophilia - If yes, enter type in comment: No Thrombosis Risk Factor Assessment Total Risk Factor Score: 4 Thrombosis Risk Factor Assessment Level: Moderate Risk
--- NOTE | 2021-09-21 14:40 | NM ---
EXAMINATION TYPE: NM pul vent and perfuse DATE OF EXAM: 09/21/2021 COMPARISON: Chest x-ray 09/21/2021 HISTORY: Elevated d-dimer, chest pain TECHNIQUE: Utilizing inhalation of 32.1 mCi Tc 99m DTPA aerosol and intravenous injection of 5.05 mC i of Tc 99m MAA, ventilation and perfusion images are acquired post injection in multiple projections . FINDINGS: Normal radiotracer distribution is noted in the lungs. There is no evidence of mismatched defects. IMPRESSION: Low probability for pulmonary venous
--- NOTE | 2021-09-21 15:06 | FL ---
EXAMINATION TYPE: FL sniff test without CXR DATE OF EXAM: 09/21/2021 COMPARISON: NONE HISTORY: elevated r diaphragm TECHNIQUE: Fluoroscopy.29 sec fl time used FINDINGS: There is paradoxical motion of the elevated right hemidiaphragm at sniffing suggesting john phragmatic paralysis. IMPRESSION: As Above.
--- NOTE | 2021-09-21 15:12 | CONS ---
CONSULTATION Please see the history, physical that has already been partly scribed by my nurse practitioner, Judy Javed. This is a pleasant 71-year-old gentleman with history of coronary artery disease status post prior angioplasty, chronic renal insufficiency, prior CVA, comes in with worsening exertional shortness of breath of 2 days duration. His BNP is elevated. He has mild leg edema and he has responded to IV Lasix with improvement in his shortness of breath. He has renal insufficiency with a creatinine of 2.5 and also has an elevated D-dimer. We are performing a V/Q scan on him to rule out pulmonary embolism. The patient probably has acute exacerbation of chronic diastolic heart failure. An echocardiogram done on this admission showed ejection fraction of 55-60 percent with mild mitral mitral regurgitation and mild pulmonary hypertension. The patient will continue current medications and we will add IV Lasix and adjust her therapies as needed. If the V/Q scan comes back abnormal, we will have to start him on IV heparin. MMODL / IJN: [id number] /
[2021-09-21 15:16] LABS: Glucose,Whole Blood 81 mg/dL (75-99)
[2021-09-21] MEDS: carvediloL 12.5 MG TAB PO SCH (16:26)
[2021-09-21] MEDS: hydrALAZINE HCL 50 MG TAB PO SCH ×2 (16:26→20:54)
[2021-09-21] MEDS: HEPARIN SODIUM,PORCINE/PF 5,000 UNIT/0.5 ML SYRINGE SQ SCH ×2 (16:26→23:01)
[2021-09-21 16:36] LABS: Glucose,Whole Blood 99 mg/dL (75-99)
[2021-09-21 20:08] LABS: Glucose,Whole Blood 213 mg/dL (75-99)
[2021-09-21] MEDS: FUROSEMIDE 10 MG/ML 4 ML VIAL IV SCH (20:54)
[2021-09-21] MEDS: DOXAZOSIN 2 MG TAB PO SCH (20:54)
[2021-09-21] MEDS: INSULIN DETEMIR (LEVEMIR) 100 UNIT/ML SYR SQ SCH (22:40)
[2021-09-22 04:25] LABS: Glucose,Whole Blood 62 mg/dL (75-99)
[2021-09-22 04:37] LABS: Glucose,Whole Blood 87 mg/dL (75-99)
[2021-09-22] MEDS: INSULIN ASPART (NovoLOG) 100 UNIT/ML VIAL SQ SCH ×3 (06:15→17:07)
[2021-09-22 06:17] LABS: Glucose,Whole Blood 94 mg/dL (75-99)
[2021-09-22] MEDS: carvediloL 12.5 MG TAB PO SCH ×2 (06:21→16:01)
[2021-09-22] MEDS: FLUoxetine HCL 20 MG CAP PO SCH (08:18)
[2021-09-22] MEDS: ASPIRIN 81 MG PO SCH (08:19)
[2021-09-22] MEDS: HEPARIN SODIUM,PORCINE/PF 5,000 UNIT/0.5 ML SYRINGE SQ SCH ×3 (08:19→23:42)
[2021-09-22] MEDS: FUROSEMIDE 10 MG/ML 4 ML VIAL IV SCH ×2 (08:19→21:13)
[2021-09-22] MEDS: ATORVASTATIN 20 MG TAB PO SCH (08:19)
[2021-09-22] MEDS: CLOPIDOGREL 75 MG TAB PO SCH (08:19)
[2021-09-22] MEDS: MULTIVITAMINS, THERA 1 EACH TAB PO SCH (08:19)
[2021-09-22] MEDS: buPROPion SR 150 MG TABLET.ER PO SCH (08:19)
[2021-09-22] MEDS: hydrALAZINE HCL 50 MG TAB PO SCH ×3 (08:19→21:13)
[2021-09-22 09:15] LABS: Basophils # (A) 0.1 k/uL (0-0.2); Basophils % (A) 1 %; Eosinophils # (A) 0.2 k/uL (0-0.7); Eosinophils % (A) 2 %; HCT 29.3 % (39.0-53.0); HGB 9.6 gm/dL (13.0-17.5); Lymphocytes # (A) 0.8 k/uL (1.0-4.8); Lymphocytes % (A) 12 %; MCH 29.5 pg (25.0-35.0); MCHC 32.8 g/dL (31.0-37.0); MCV 90.1 fL (80.0-100.0); Mean Platelet Volume 8.9; Monocytes # (A) 0.4 k/uL (0-1.0); Monocytes % (A) 6 %; Neutrophils # (A) 5.6 k/uL (1.3-7.7); Neutrophils % (A) 78 %; Platelet Count 247 k/uL (150-450); RBC 3.25 m/uL (4.30-5.90); RDW 13.6 % (11.5-15.5); WBC 7.2 k/uL (3.8-10.6)
[2021-09-22 09:32] LABS: Albumin 3.3 g/dL (3.5-5.0); Calcium 8.3 mg/dL (8.4-10.2); Potassium 4.1 mmol/L (3.5-5.1); Total Bilirubin 0.5 mg/dL (0.2-1.3); Total Protein 5.9 g/dL (6.3-8.2)
--- NOTE | 2021-09-22 11:33 | P.PN ---
Subjective Patient is feeling better this morning. Shortness of breath and leg edema him have improved. Does not have any chest pain. He had a VQ scan that was low probability for pulmonary embolism . On exam comfortable at rest O2 sat is 93% on room air afebrile heart rate is 53 bpm there is a jugular venous distention chest exam reveals good air entry bilaterally heart exam vessel second heart sounds no gallop no murmur abdomen is soft nontender exams ex extremities reveals mild edema per for pulses are felt Labs show a hemoglobin of 9.6 potassium is 4.1 the urine is 40 creatinine is 2.8 Acute exacerbation of chronic diastolic congestive heart failure Elevated d-dimer with a negative VQ scan Chronic renal insufficiency I will continue the patient on IV Lasix Echo showed normal LV function Objective - Vital Signs Vital signs: Vital Signs Temp 98.2 F 09/22/21 11:30 Pulse 53 L 09/22/21 11:30 Resp 18 09/22/21 11:30 BP 164/74 09/22/21 11:30 Pulse Ox 93 L 09/22/21 11:30 Intake & Output 09/21/21 09/22/21 09/22/21 18:59 06:59 18:59 Intake Total 360 1251 260 Output Total 1800 Balance 360 -549 260 Weight 113.398 kg 119 kg Intake: Oral 360 1251 260 Output: Urine 1800 Other: Voiding Method Urinal Urinal # Voids 1 - Labs CBC & Chem 7: 09/22/21 08:44 09/22/21 08:44 Labs: Abnormal Lab Results - Last 24 Hours (Table) 09/21/21 09/22/21 09/22/21 Range/Units 20:05 04:14 08:44 RBC 3.25 L (4.30-5.90) m/uL Hgb 9.6 L (13.0-17.5) gm/dL Hct 29.3 L (39.0-53.0) % Lymphocytes # 0.8 L (1.0-4.8) k/uL Sodium (137-145) mmol/L BUN (9-20) mg/dL Creatinine (0.66-1.25) mg/dL Glucose (74-99) mg/dL POC Glucose (mg/dL) 213 H 62 L (75-99) mg/dL Calcium (8.4-10.2) mg/dL Total Protein (6.3-8.2) g/dL Albumin (3.5-5.0) g/dL 09/22/21 Range/Units 08:44 RBC (4.30-5.90) m/uL Hgb (13.0-17.5) gm/dL Hct (39.0-53.0) % Lymphocytes # (1.0-4.8) k/uL Sodium 136 L (137-145) mmol/L BUN 40 H (9-20) mg/dL Creatinine 2.80 H (0.66-1.25) mg/dL Glucose 162 H (74-99) mg/dL POC Glucose (mg/dL) (75-99) mg/dL Calcium 8.3 L (8.4-10.2) mg/dL Total Protein 5.9 L (6.3-8.2) g/dL Albumin 3.3 L (3.5-5.0) g/dL
[2021-09-22 11:35] LABS: Glucose,Whole Blood 172 mg/dL (75-99)
--- NOTE | 2021-09-22 14:46 | P.CNPUL ---
History of Present Illness Consult date: 09/22/21 Requesting physician: Porfirio Godwin Reason for consult: dyspnea, hypoxemia, pleural effusion, abnormal CXR/CT Chief complaint: Shortness of breath. History of present illness: Pulmonary consult dated 09/22/2021. This is a 71-year-old male, who was seen in room 374. He was sitting up at the chair, next to his bed. He was not wearing any oxygen. He was not receiving any IV fluids. He apparently presented to the emergency room room on September 21, complaining of shortness of breath. The shortness of breath is been going on for at least a couple of days, and maybe a week or so. Over the last 2 days, the shortness of breath became very severe. In addition, he describes some chest pressure. He denied any fever or chills. No cough or phlegm production. He did have some lower extremity edema, but he thought the edema but relatively stable. There is no orthopnea, or PND. He apparently was not taking any diuretics at home. Anyway, he states that he's feeling much better now. He did receive diuretics here in the emergency department, and on the floor. She denies a prior history of any lung disease. He apparently has a history of CVA, diabetes, GERD, hyperlipidemia, hypertension, osteoarthritis, sleep apnea syndrome, and prior heart catheterization. Laboratory data includes a white count 7.2, hemoglobin 9.6, hematocrit 29.3, and platelet count 247,000. Sodium 136, potassium 4.1, chlorides 102, CO2 26, anion gap 8, BUN 40, creatinine 2.80. The patient's troponin was 0.013. N-terminal proBNP was 2210. Testing for andrew virus was negative. Chest x-ray was consistent with CHF/pulmonary edema. Perfusion lung scan was low probability for pulmonary embolism. Sniff test showed paradoxical motion of the right hemidiaphragm, with diaphragmatic paralysis. Review of Systems REVIEW OF SYSTEMS: CONSTITUTIONAL: [Negative.] NEUROLOGIC: [ Negative.] HEENT: [ Negative.] CARDIAC: Chest pressure and weight gain with lower extremity edema. PULMONARY: Shortness of breath. GI: [Negative.] : [Negative.] RHEUMATOLOGIC: [ Negative.] IMMUNOLOGIC: [ Negative.] ENDOCRINE: [Negative. ] DERMATOLOGIC: [Negative.] Past Medical History Past Medical History: CVA/TIA, Diabetes Mellitus, GERD/Reflux, Hyperlipidemia, Hypertension, Osteoarthritis (OA), Renal Disease, Sleep Apnea/CPAP/BIPAP Additional Past Medical History / Comment(s): Hx CVA 03/2018, "right side finnicky sometimes still", Chronic kidney disease, CPAP use. History of Any Multi-Drug Resistant Organisms: None Reported Past Surgical History: Heart Catheterization Additional Past Surgical History / Comment(s): Bilateral Cataract surgery. Past Anesthesia/Blood Transfusion Reactions: No Reported Reaction Past Psychological History: Depression Smoking Status: Never smoker Past Alcohol Use History: None Reported Past Drug Use History: None Reported - Past Family History Father Family Medical History: Cancer Additional Family Medical History / Comment(s): Colon Cancer. Sister(s) Family Medical History: Cancer Additional Family Medical History / Comment(s): Breast cancer. Medications and Allergies Home Medications Medication Instructions Recorded Confirmed Type Aspirin [Adult Low Dose Aspirin EC] 81 mg PO DAILY 06/27/20 09/21/21 History Doxazosin [Cardura] 2 mg PO HS 06/27/20 09/21/21 History FLUoxetine HCL [PROzac] 40 mg PO DAILY 06/27/20 09/21/21 History calcitrioL [Calcitriol] 0.25 mcg PO SUWE 06/27/20 09/21/21 History Insulin Lispro [humaLOG Kwikpen] See Protocol SQ ACHS PRN 06/28/20 09/21/21 History buPROPion HCL [buPROPion HCL SR] 150 mg PO DAILY 06/28/20 09/21/21 History Clopidogrel [Plavix] 75 mg PO DAILY #90 tab 06/29/20 09/21/21 Rx Nitroglycerin Sl Tabs [Nitrostat] 0.4 mg SUBLINGUAL Q5M PRN #1 bottle 06/29/20 09/21/21 Rx Multivitamins, Thera [Multivitamin 1 tab PO DAILY 06/22/21 09/21/21 History (formulary)] NIFEdipine [Procardia XL] 60 mg PO DAILY 06/22/21 09/21/21 History hydrALAZINE HCL [Apresoline] 50 mg PO BID 06/22/21 09/21/21 History Carvedilol [Coreg] 25 mg PO BID 09/21/21 09/21/21 History Insulin Glargine,Hum.rec.anlog 60 unit SQ HS 09/21/21 09/21/21 History [Lantus Solostar Pen] Rosuvastatin Calcium 10 mg PO DAILY 09/21/21 09/21/21 History Allergies Allergy/AdvReac Type Severity Reaction Status Date / Time Iodine and Iodide Containing AdvReac kidney Verified 09/21/21 11:50 Produc issues Physical Exam Osteopathic Statement: *. No significant issues noted on an osteopathic structural exam other than those noted in the History and Physical/Consult. Vitals: Vital Signs Temp Pulse Resp BP Pulse Ox 09/22/21 11:30 98.2 F 53 L 18 164/74 93 L 09/22/21 08:00 98.1 F 52 L 18 138/66 94 L 09/22/21 06:20 62 159/70 09/22/21 03:46 62 18 169/75 96 09/22/21 02:00 18 09/22/21 00:00 64 18 169/74 97 09/21/21 20:00 98.0 F 64 18 173/84 93 L Intake and Output 09/21/21 09/22/21 09/22/21 22:59 06:59 14:59 Intake Total 900 711 260 Output Total 600 1200 Balance 300 -489 260 Intake: Oral 900 711 260 Output: Urine 600 1200 Other: Voiding Method Urinal Urinal Urinal # Voids 1 Weight 119 kg No acute distress, oriented 3. HEENT examination is grossly unremarkable. Neck supple. Full range of motion. No adenopathy thyromegaly or neck vein distention. Cardiovascular examination reveals regular rhythm rate. S1-S2 normal. No S3 or S4. No discernible murmur noted. Heart rate is 53 bpm. Lungs reveal bibasilar crackles. Breath sounds equal bilaterally. No wheezes or rhonchi. Room air saturations are between 93 and 94%. Abdomen soft bowel sounds are heard. No masses or tenderness. Extremities are intact. No cyanosis or clubbing. Mild lower extremity edema is noted. There is pitting. Skin is without rash or lesion. Neurologic examination is brief but nonfocal. Results - Laboratory Findings CBC and BMP: 09/22/21 08:44 09/22/21 08:44 PT/INR, D-dimer PT 10.6 sec (9.0-12.0) 09/21/21 08:31 INR 1.0 (<1.2) 09/21/21 08:31 D-Dimer 3.13 mg/L FEU (<0.60) H 09/21/21 08:31 Abnormal lab findings: Abnormal Labs 09/21/21 09/21/21 09/21/21 08:31 08:31 08:31 RBC 3.34 L Hgb 9.9 L Hct 29.4 L Lymphocytes # D-Dimer 3.13 H Sodium 136 L BUN 40 H Creatinine 2.56 H Glucose 148 H POC Glucose (mg/dL) Calcium Total Protein 6.2 L Albumin 3.4 L 09/21/21 09/22/21 09/22/21 20:05 04:14 08:44 RBC 3.25 L Hgb 9.6 L Hct 29.3 L Lymphocytes # 0.8 L D-Dimer Sodium BUN Creatinine Glucose POC Glucose (mg/dL) 213 H 62 L Calcium Total Protein Albumin 09/22/21 09/22/21 08:44 11:34 RBC Hgb Hct Lymphocytes # D-Dimer Sodium 136 L BUN 40 H Creatinine 2.80 H Glucose 162 H POC Glucose (mg/dL) 172 H Calcium 8.3 L Total Protein 5.9 L Albumin 3.3 L - Diagnostic Findings Chest x-ray: image reviewed Assessment and Plan Assessment: Shortness of breath, likely secondary to CHF/pulmonary vascular congestion. No prior history of lung disease. History of CVA/TIA. History of diabetes mellitus. History of GERD. History of hyperlipidemia. History of hypertension. History of sleep apnea, currently on CPAP. History of osteoarthritis. Lifelong non-tobacco user. Plan: Plan dated 09/22/2021. The patient's doing much better. The patient's currently on room air. The patient is receiving Lasix 40 mg IV push, every 12 hours. There is no history of any lung disease. The patient's a lifelong nontobacco user. Moving forward, we'll see the patient only as needed. Labs, x-rays, and medications are r eviewed. Prognosis is guarded. Time with Patient: Greater than 30
[2021-09-22 16:34] LABS: Glucose,Whole Blood 154 mg/dL (75-99)
--- NOTE | 2021-09-22 18:28 | US ---
EXAMINATION TYPE: US venous doppler duplex LE BI DATE OF EXAM: 09/22/2021 6:09 PM COMPARISON: NONE CLINICAL HISTORY: dvt. pain SIDE PERFORMED: Bilateral TECHNIQUE: The lower extremity deep venous system is examined utilizing real time linear array sonog sindy with graded compression, doppler sonography and color-flow sonography. VESSELS IMAGED: Common Femoral Vein Deep Femoral Vein Greater Saphenous Vein * Femoral Vein Popliteal Vein Small Saphenous Vein * Proximal Calf Veins (* superficial vessels) Right Leg: Negative for DVT Left Leg: Negative for DVT IMPRESSION: No evidence of deep vein thrombosis in both legs..
[2021-09-22 19:23] LABS: Appearance,Urine Clear (Clear); Bilirubin,Urine Negative (Negative); Blood,Urine Negative (Negative); Color,Urine Yellow; Glucose,Urine (UA) Negative (Negative); Hyaline Casts,Urine 1 /lpf (0-2); Ketones,Urine Negative (Negative); Leukocyte Esterase,Urine Negative (Negative); Mucus,Urine Rare /hpf; Nitrite,Urine Negative (Negative); Protein,Urine 1+ (Negative); RBC,Urine <1 /hpf (0-5); Specific Gravity,Urine 1.012 (1.001-1.035); Urobilinogen,Urine <2.0 mg/dL (<2.0); WBC,Urine <1 /hpf (0-5)
[2021-09-22 20:13] LABS: Glucose,Whole Blood 225 mg/dL (75-99)
--- NOTE | 2021-09-22 20:48 | PN ---
PROGRESS NOTE DATE OF SERVICE: 09/22/2021 This 71-year-old gentleman who was admitted with CHF acute exacerbation is being closely monitored at this time. The patient also had a high D-dimer but V/Q scan was low probability. No chest pain, no palpitation. PAST MEDICAL HISTORY: Reviewed. REVIEW OF SYSTEM: 14 point review of systems negative except as mentioned earlier. CURRENT MEDICATIONS: Reviewed and include Tylenol, aspirin, Lipitor. Doses and other medications reviewed. PHYSICAL EXAMINATION: Patient is alert, oriented x3. Pulse 62, blood pressure 118/76, respiration 18. HEENT: Conjunctivae normal. Oral mucosa moist. NECK: No jugular venous distention. No lymph node enlargement. CARDIOVASCULAR: S1, S2, muffled. No S3, no S4, RESPIRATORY: Diminished breath sounds at the bases. A few scattered rhonchi and crackles. ABDOMEN: Soft. LEGS: Bilateral leg edema. NERVOUS SYSTEM: No focal deficits. LABS: WBC 7, hemoglobin 9.2. Other labs are noted. Creatinine is 2.8. ASSESSMENT: 1. Congestive heart failure acute exacerbation. 2. Diabetes mellitus, type 2. 3. Chronic kidney disease stage 3. 4. Depression. 5. Elevated D-dimer with no evidence of pulmonary embolism. RECOMMENDATIONS AND DISCUSSION: I recommend to continue current management and symptomatic treatment. Continue with the diuretics. I would also recommend ultrasound of the legs. See orders for further details. Prognosis guarded. Further recommendations to follow. Covid-19 is negative. MMODL / IJN: [id number] /
[2021-09-22] MEDS: INSULIN DETEMIR (LEVEMIR) 100 UNIT/ML SYR SQ SCH (21:13)
[2021-09-22] MEDS: DOXAZOSIN 2 MG TAB PO SCH (21:35)
--- NOTE | 2021-09-22 22:45 | XR ---
EXAMINATION TYPE: XR knee 4V RT DATE OF EXAM: 09/22/2021 COMPARISON: 06/28/2021 HISTORY: Fall. Pain TECHNIQUE: 4 views FINDINGS: There is right knee prosthesis. Components are in anatomic position. No fracture seen. No e vidence of any significant joint effusion. There is vascular calcification. IMPRESSION: No acute abnormality of the right knee.
[2021-09-23 06:10] LABS: Glucose,Whole Blood 65 mg/dL (75-99)
[2021-09-23] MEDS: INSULIN ASPART (NovoLOG) 100 UNIT/ML VIAL SQ SCH ×3 (06:11→21:04)
[2021-09-23] MEDS: carvediloL 12.5 MG TAB PO SCH ×2 (06:11→15:29)
[2021-09-23 06:26] LABS: Glucose,Whole Blood 81 mg/dL (75-99)
[2021-09-23] MEDS: FUROSEMIDE 10 MG/ML 4 ML VIAL IV SCH (08:51)
[2021-09-23] MEDS: ATORVASTATIN 20 MG TAB PO SCH (08:52)
[2021-09-23] MEDS: FLUoxetine HCL 20 MG CAP PO SCH (08:52)
[2021-09-23] MEDS: buPROPion SR 150 MG TABLET.ER PO SCH (08:52)
[2021-09-23] MEDS: HEPARIN SODIUM,PORCINE/PF 5,000 UNIT/0.5 ML SYRINGE SQ SCH ×3 (08:52→23:43)
[2021-09-23] MEDS: ASPIRIN 81 MG PO SCH (08:52)
[2021-09-23] MEDS: CLOPIDOGREL 75 MG TAB PO SCH (08:52)
[2021-09-23] MEDS: hydrALAZINE HCL 50 MG TAB PO SCH ×3 (08:52→21:07)
[2021-09-23] MEDS: MULTIVITAMINS, THERA 1 EACH TAB PO SCH (08:52)
[2021-09-23 11:35] LABS: Glucose,Whole Blood 122 mg/dL (75-99)
--- NOTE | 2021-09-23 13:57 | PN ---
PROGRESS NOTE 71-year-old gentleman who is admitted to the hospital with acute exacerbation of chronic diastolic heart failure and renal insufficiency. This morning, he is feeling much better, but his blood pressures are poorly controlled at 180/80. EXAM: Comfortable at rest. Afebrile. Heart rate is 60 beats per minute. Blood pressure is 180/80, respiratory rate 18. Chest exam reveals diminished air entry bilaterally. Heart exam reveals first and second heart sounds. No gallop. Abdomen is soft. Examination of extremities reveals 1+ edema. Peripheral pulses are felt. ASSESSMENT: 1. Acute exacerbation of chronic diastolic heart failure. 2. Severe uncontrolled hypertension. PLAN: I will increase the dose of hydralazine to 100 mg t.i.d. for better blood pressure control. Continue the Coreg. Continue the Procardia that he is currently on and we will switch his Lasix to p.o. LIGIA / TATI: [id number] /
[2021-09-23] MEDS: FUROSEMIDE 40 MG TAB PO SCH (15:29)
[2021-09-23 17:09] LABS: Glucose,Whole Blood 330 mg/dL (75-99)
[2021-09-23] MEDS ORDERED: hydrALAZINE HCL 50 MG TAB PO SCH (18:00)
--- NOTE | 2021-09-23 18:32 | PN ---
PROGRESS NOTE DATE OF SERVICE: 09/23/2021 This 71-year-old gentleman who was admitted CHF, acute exacerbations, is on Lasix. No chest pain. No palpitations. No fever. PHYSICAL EXAMINATION: Pulse 62, blood pressure 153/89, respiration 20. HEENT: Conjunctivae normal. NECK: No jugular venous distention. CARDIOVASCULAR: S1, S2 muffled. RESPIRATION: A few scattered rhonchi and crackles in the bases. ABDOMEN: Soft, nontender. NERVOUS SYSTEM: No focal deficit. LABS: Reviewed. ASSESSMENT: 1. Congestive heart failure, acute exacerbation. 2. Diabetes mellitus, type 2. 3. Chronic kidney disease, stage 3. 4. Depression. 5. Elevated D-dimer with no evidence of pulmonary embolism. RECOMMENDATIONS AND DISCUSSION: I recommend to continue current medications, continue with the monitoring, symptomatic treatment. Continue with the diuretics. Adjust insulin dosage. Further recommendations to follow. MMODL / IJN: [id number] /
[2021-09-23 20:01] VITALS: RESP 18
[2021-09-23 20:05] LABS: Glucose,Whole Blood 407 mg/dL (75-99)
[2021-09-23] MEDS: INSULIN DETEMIR (LEVEMIR) 100 UNIT/ML SYR SQ SCH (21:04)
[2021-09-23] MEDS: DOXAZOSIN 2 MG TAB PO SCH (21:04)
[2021-09-24 06:21] LABS: Glucose,Whole Blood 117 mg/dL (75-99)
[2021-09-24] MEDS: INSULIN ASPART (NovoLOG) 100 UNIT/ML VIAL SQ SCH ×2 (06:42→11:54)
[2021-09-24] MEDS: carvediloL 12.5 MG TAB PO SCH (06:48)
[2021-09-24] MEDS: MULTIVITAMINS, THERA 1 EACH TAB PO SCH (08:26)
[2021-09-24] MEDS: ASPIRIN 81 MG PO SCH (08:26)
[2021-09-24] MEDS: hydrALAZINE HCL 50 MG TAB PO SCH ×2 (08:26→13:54)
[2021-09-24] MEDS: CLOPIDOGREL 75 MG TAB PO SCH (08:26)
[2021-09-24] MEDS: ATORVASTATIN 20 MG TAB PO SCH (08:26)
[2021-09-24] MEDS: FUROSEMIDE 40 MG TAB PO SCH (08:26)
[2021-09-24] MEDS: HEPARIN SODIUM,PORCINE/PF 5,000 UNIT/0.5 ML SYRINGE SQ SCH (08:26)
[2021-09-24] MEDS: buPROPion SR 150 MG TABLET.ER PO SCH (08:27)
[2021-09-24] MEDS: FLUoxetine HCL 20 MG CAP PO SCH (08:27)
--- NOTE | 2021-09-24 10:27 | P.PN ---
Subjective Progress Note Date: 09/24/21 Principal diagnosis: Hypertension emergency The patient is a pleasant 71-year-old gentleman with coronary artery disease as well as hypertension and dyslipidemia and heart failure with preserved ejection fraction was admitted to the hospital with hypertension emergency indicated by heart failure. The patient was seen this morning. He stated "I feel better". The shortness of breath has improved. No symptoms of chest pain or chest discomfort and no dizziness or lightheadedness or any feeling of heart racing or fluttering or presyncope or syncope. The pressure still not ideal but that can be managed as an outpatient. Objective - Vital Signs Vital signs: Vital Signs Temp 97.8 F 09/24/21 08:00 Pulse 57 L 09/24/21 08:00 Resp 18 09/24/21 08:00 BP 151/56 09/24/21 08:00 Pulse Ox 96 09/24/21 08:58 Intake & Output 09/23/21 09/24/21 09/24/21 18:59 06:59 18:59 Intake Total 850 480 Output Total 450 2100 Balance 400 -2100 480 Weight 116.294 kg Intake: IV 10 Invasive Line 1 10 Oral 840 480 Output: Urine 450 2100 Other: Voiding Method Urinal Urinal Urinal - Constitutional General appearance: Present: no acute distress - Respiratory Respiratory: bilateral: CTA - Cardiovascular Rhythm: regular Heart sounds: normal: S1, S2 - Labs CBC & Chem 7: 09/22/21 08:44 09/22/21 08:44 Labs: Abnormal Lab Results - Last 24 Hours (Table) 09/23/21 09/23/21 09/23/21 Range/Units 11:33 17:07 19:58 POC Glucose (mg/dL) 122 H 330 H 407 H (75-99) mg/dL 09/24/21 Range/Units 06:18 POC Glucose (mg/dL) 117 H (75-99) mg/dL Assessment and Plan Assessment: Assessment #1 hypertension emergency #2 coronary artery disease #3 heart failure with preserved ejection fraction #4 multiple comorbid conditions Plan #1 continue the current medical regimen #2 the patient can be discharged home #3 we'll rule out secondary hypertension. Rule out renal artery stenosis as an etiology probably as an outpatient
[2021-09-24 11:07] VITALS: BP 167/76; PULSE 58; TEMP 97.7
[2021-09-24 11:49] LABS: Glucose,Whole Blood 229 mg/dL (75-99)
== END 2021-09-24 14:20 | disposition home or self-care (01) | DRG 291 ==
LOC: EC 08:07 → 3SCARD 10:06
PROVIDERS: ADMIT Hospitalist; ATTEND Hospitalist
DX: I13.0 Hypertensive heart and chronic kidney disease with heart failure and stage 1 through stage 4 chronic kidney disease, or unspecified chronic kidney disease (principal); I50.33 Acute on chronic diastolic (congestive) heart failure; I69.151 Hemiplegia and hemiparesis following nontraumatic intracerebral hemorrhage affecting right dominant side; I16.1 Hypertensive emergency; I27.20 Pulmonary hypertension, unspecified; D63.1 Anemia in chronic kidney disease; J98.6 Disorders of diaphragm; E11.22 Type 2 diabetes mellitus with diabetic chronic kidney disease; I25.110 Atherosclerotic heart disease of native coronary artery with unstable angina pectoris; N18.30 Chronic kidney disease, stage 3 unspecified; J44.9 Chronic obstructive pulmonary disease, unspecified; Z79.4 Long term (current) use of insulin; Z20.822 Contact with and (suspected) exposure to COVID-19; I25.82 Chronic total occlusion of coronary artery; K21.9 Gastro-esophageal reflux disease without esophagitis; E78.5 Hyperlipidemia, unspecified; G47.33 Obstructive sleep apnea (adult) (pediatric); I08.1 Rheumatic disorders of both mitral and tricuspid valves; I45.10 Unspecified right bundle-branch block; K58.9 Irritable bowel syndrome, unspecified; R09.02 Hypoxemia; F32.A Depression, unspecified; M19.91 Primary osteoarthritis, unspecified site; Z79.82 Long term (current) use of aspirin; Z79.02 Long term (current) use of antithrombotics/antiplatelets; Z79.899 Other long term (current) drug therapy; Z98.61 Coronary angioplasty status; Z98.42 Cataract extraction status, left eye; Z98.41 Cataract extraction status, right eye; Z87.438 Personal history of other diseases of male genital organs; Z98.890 Other specified postprocedural states; Z88.8 Allergy status to other drugs, medicaments and biological substances; Z80.0 Family history of malignant neoplasm of digestive organs; Z80.3 Family history of malignant neoplasm of breast
CPT/HCPCS: 36415; 71046; 76000; 78582; 80053; 81001; 83735; 83880; 84484; 85025; 85379; 85610; 85730; 87635; 93005; 93306; 93970; 94760; 96374; 99285

== ENCOUNTER 2021-11-22 20:43 | Inpatient (IN) | payer MEDICARE ==
[2021-11-23] MEDS ORDERED: BEBTELOVIMAB (EUA) 175 MG/2 ML VIAL IV ONE (02:15)
[2021-11-23 07:23] LABS: Albumin 3.8 g/dL (3.5-5.0); Calcium 9.6 mg/dL (8.4-10.2); Potassium 3.9 mmol/L (3.5-5.1); Total Bilirubin 0.5 mg/dL (0.2-1.3); Total Protein 6.4 g/dL (6.3-8.2)
[2021-11-23 07:25] LABS: Basophils # (A) 0.1 k/uL (0-0.2); Basophils % (A) 1 %; Eosinophils # (A) 0.2 k/uL (0-0.7); Eosinophils % (A) 3 %; HCT 31.2 % (39.0-53.0); HGB 10.5 gm/dL (13.0-17.5); Lymphocytes # (A) 1.1 k/uL (1.0-4.8); Lymphocytes % (A) 14 %; MCH 29.7 pg (25.0-35.0); MCHC 33.7 g/dL (31.0-37.0); MCV 88.1 fL (80.0-100.0); Mean Platelet Volume 8.7; Monocytes # (A) 0.5 k/uL (0-1.0); Monocytes % (A) 7 %; Neutrophils # (A) 5.6 k/uL (1.3-7.7); Neutrophils % (A) 74 %; Platelet Count 225 k/uL (150-450); RBC 3.54 m/uL (4.30-5.90); RDW 13.4 % (11.5-15.5); WBC 7.6 k/uL (3.8-10.6)
--- NOTE | 2021-11-23 08:00 | XR ---
EXAM: XR Chest, 1 View CLINICAL HISTORY: SOB TECHNIQUE: Frontal view of the chest. COMPARISON: CXR 09/21/21 FINDINGS: Lungs: Unremarkable. No consolidation. Pleural space: Unremarkable. No pleural effusion or pneumothorax. Heart: Stable heart size. No significant vascular congestion. Bones/joints: No acute fracture. No dislocation. IMPRESSION: No acute findings in the chest.
[2021-11-23] MEDS ORDERED: NITROGLYCERIN SL TABS 0.4 MG TAB SUBLINGUAL PRN (11:10)
[2021-11-23 11:39] LABS: Glucose,Whole Blood 345 mg/dL (75-99)
[2021-11-23] MEDS: carvediloL 12.5 MG TAB PO SCH ×2 (11:39→16:51)
[2021-11-23] MEDS: ATORVASTATIN 20 MG TAB PO SCH (11:39)
[2021-11-23] MEDS: hydrALAZINE HCL 50 MG TAB PO SCH ×4 (11:39→22:17)
[2021-11-23] MEDS: ASPIRIN 81 MG PO SCH (11:39)
[2021-11-23] MEDS: FLUoxetine HCL 20 MG CAP PO SCH (11:39)
[2021-11-23] MEDS: buPROPion SR 150 MG TABLET.ER PO SCH (11:39)
[2021-11-23] MEDS: INSULIN ASPART (NovoLOG) 100 UNIT/ML VIAL SQ SCH ×2 (11:51→16:52)
[2021-11-23 16:17] LABS: Glucose,Whole Blood 350 mg/dL (75-99)
--- NOTE | 2021-11-23 20:22 | P.HPIM ---
History of Present Illness H&P Date: 11/23/21 Chief Complaint: Fever or chills This is a pleasant 71-year-old patient who follows with Dr. Juanjo Livingston. Chronic stable medical conditions include prior brain bleed with some right- sided weakness in 2018, but able to walk unassisted, diabetes, GERD, hypertension, hyperlipidemia, osteoarthritis, COPD, obstructive sleep apnea uses CPAP, CK D, depression. Patient yesterday felt he has a bad cold. Then developed fever and chills. Decreased appetite tired rundown. No diarrhea. Presented to the ER. Tested positive for COVID. Patient received antibody(Bebtelovimab) infusion in the ER. Some throat discomfort. Review of systems: GEN.: Tired, fever or chills EYES: None HEENT: None NECK: None RESPIRATORY: As above CARDIOVASCULAR: As above GASTROINTESTINAL: None GENITOURINARY: None MUSCULOSKELETAL: Some joint pains LYMPHATICS: None HEMATOLOGICAL: None PSYCHIATRY: None NEUROLOGICAL: Chronic right-sided weakness Past medical history to include: Brain bleed with stroke causing some residual right-sided weakness, 2018, diabetes, GERD, hypertension, hyperlipidemia, prostatitis, COPD, obstructive sleep apnea uses CPAP, IBS, depression Social history: . No history of smoking or alcohol. 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 EYES: Pupils equal. Conjunctiva normal. HEENT: External appearance of nose and ears normal, oral cavity grossly normal. NECK: JVD not raised; masses not palpable. HEART: First and second heart sounds are normal; some edema. LUNGS: Respiratory rate increased; decreased breath sounds. ABDOMEN: Soft, nontender, liver spleen not palpable, no masses palpable. PSYCH: Alert and oriented x3; mood and affect normal. MUSCULOSKELETAL:No Clubbing/cyanosis;muscles-grossly intact. Evidence of OA NEUROLOGICAL: Cranial nerves grossly intact; no facial asymmetry, mild right-sided weakness LYMPHATICS: No lymph nodes palpable in the axilla and neck INVESTIGATIONS, reviewed in the clinical context: White count 7.6 hemoglobin 10.5 platelets 225 potassium 3.9 BUN 45 creatinine 3.0 Troponin I 0.041 COVID 19 PCR: Detected EKG tracing personally reviewed by me-normal sinus rhythm. Rate 61. Right bundle branch block. Chest x-ray: No abnormalities reported Assessment and plan: -Acute COVID 19 infection. Patient's pulse ox a good. No steroids. Supportive medications. -Diabetes mellitus type 2, chronically on insulin Lantus 40 units subcu daily at bedtime. Follow Accu-Cheks. 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 No ACS. Resume home medications. Telemetry. IV hydration. See any improvement in kidney function. Follow Accu-Cheks. Discussed with patient. Past Medical History Past Medical History: Heart Failure, CVA/TIA, Diabetes Mellitus, GERD/Reflux, Hyperlipidemia, Hypertension, Osteoarthritis (OA), Renal Disease, Sleep Apnea/CPAP/BIPAP Additional Past Medical History / Comment(s): RECENT INPT FOR CHF 09/21-09/24/21, Hx CVA 03/2018, "right side finnicky sometimes still", Chronic kidney disease, CPAP use. History of Any Multi-Drug Resistant Organisms: None Reported Past Surgical History: Cholecystectomy, Heart Catheterization, Joint Replacement Additional Past Surgical History / Comment(s): Bilateral Cataract surgery., STENT PLACED PLACED IN BILAT DUCT, RT TKA, COLONOSCOPY Past Anesthesia/Blood Transfusion Reactions: No Reported Reaction Past Psychological History: Depression Smoking Status: Never smoker Past Alcohol Use History: None Reported Past Drug Use History: None Reported - Past Family History Father Family Medical History: Cancer Additional Family Medical History / Comment(s): Colon Cancer. Sister(s) Family Medical History: Cancer Additional Family Medical History / Comment(s): Breast cancer. Medications and Allergies Home Medications Medication Instructions Recorded Confirmed Type Aspirin [Adult Low Dose Aspirin EC] 81 mg PO DAILY 06/27/20 11/23/21 History Doxazosin [Cardura] 2 mg PO HS 06/27/20 11/23/21 History FLUoxetine HCL [PROzac] 40 mg PO DAILY 06/27/20 11/23/21 History calcitrioL [Calcitriol] 0.25 mcg PO SUWE 06/27/20 11/23/21 History Insulin Lispro [humaLOG Kwikpen] See Protocol SQ ACHS PRN 06/28/20 11/23/21 History buPROPion HCL [buPROPion HCL SR] 150 mg PO DAILY 06/28/20 11/23/21 History Nitroglycerin Sl Tabs [Nitrostat] 0.4 mg SUBLINGUAL Q5M PRN #1 bottle 06/29/20 11/23/21 Rx Multivitamins, Thera [Multivitamin 1 tab PO DAILY 06/22/21 11/23/21 History (formulary)] Carvedilol [Coreg] 25 mg PO BID 09/21/21 11/23/21 History Rosuvastatin Calcium 10 mg PO DAILY 09/21/21 11/23/21 History Furosemide [Lasix] 40 mg PO BID@0900,1600 30 Days #60 09/24/21 11/23/21 Rx tab Insulin Glargine,Hum.rec.anlog 40 unit SQ HS #0 09/24/21 11/23/21 Rx [Lantus Solostar Pen] hydrALAZINE HCL [Apresoline] 100 mg PO QID 30 Days #120 tablet 09/24/21 11/23/21 Rx NIFEdipine [NIFEdipine ER 60 mg PO DAILY 11/23/21 11/23/21 History (Osmotic)] Allergies Allergy/AdvReac Type Severity Reaction Status Date / Time No Known Allergies Allergy Verified 10/10/21 16:27 Physical Exam Vitals: Vital Signs Temp Pulse Resp BP Pulse Ox 11/22/21 20:58 100.1 F H 68 20 169/60 95 Intake and Output 11/22/21 11/23/21 11/23/21 22:59 06:59 14:59 Other: Weight 113.398 kg Results CBC & Chem 7: 11/23/21 00:55 11/23/21 00:55 Labs: Abnormal Lab Results - Last 24 Hours (Table) 11/23/21 11/23/21 11/23/21 Range/Units 00:55 00:55 00:55 RBC 3.54 L (4.30-5.90) m/uL Hgb 10.5 L (13.0-17.5) gm/dL Hct 31.2 L (39.0-53.0) % Sodium 136 L (137-145) mmol/L BUN 45 H (9-20) mg/dL Creatinine 3.00 H (0.66-1.25) mg/dL Glucose 118 H (74-99) mg/dL Troponin I 0.041 H* (0.000-0.034) ng/mL Coronavirus (PCR) (Not Detectd) 11/23/21 Range/Units 00:55 RBC (4.30-5.90) m/uL Hgb (13.0-17.5) gm/dL Hct (39.0-53.0) % Sodium (137-145) mmol/L BUN (9-20) mg/dL Creatinine (0.66-1.25) mg/dL Glucose (74-99) mg/dL Troponin I (0.000-0.034) ng/mL Coronavirus (PCR) Detected A (Not Detectd)
[2021-11-23] MEDS ORDERED: INSULIN DETEMIR (LEVEMIR) 100 UNIT/ML SYR SQ SCH (21:00)
[2021-11-23] MEDS ORDERED: DOXAZOSIN 2 MG TAB PO SCH (21:00)
[2021-11-23 21:09] LABS: Glucose,Whole Blood 362 mg/dL (75-99)
[2021-11-23] MEDS: ZINC SULFATE 220 MG CAP PO SCH (22:18)
[2021-11-23] MEDS: ASCORBIC ACID 500 MG TAB PO SCH (22:18)
[2021-11-23] MEDS: SODIUM CHLORIDE 0.9% 1,000 ML IV SCH (22:20)
[2021-11-24] MEDS: SODIUM CHLORIDE 0.9% 1,000 ML IV SCH (07:14)
[2021-11-24] MEDS: carvediloL 12.5 MG TAB PO SCH (07:18)
[2021-11-24] MEDS: INSULIN ASPART (NovoLOG) 100 UNIT/ML VIAL SQ SCH ×2 (07:21→12:50)
[2021-11-24 07:32] LABS: Glucose,Whole Blood 272 mg/dL (75-99)
[2021-11-24] MEDS ORDERED: MULTIVITAMINS, THERA 1 EACH TAB PO SCH (09:00)
[2021-11-24 09:14] LABS: Potassium 3.7 mmol/L (3.5-5.1)
[2021-11-24 09:15] LABS: Calcium 8.8 mg/dL (8.4-10.2)
[2021-11-24] MEDS: FLUoxetine HCL 20 MG CAP PO SCH (09:55)
[2021-11-24] MEDS: ASCORBIC ACID 500 MG TAB PO SCH (09:55)
[2021-11-24] MEDS: buPROPion SR 150 MG TABLET.ER PO SCH (09:56)
[2021-11-24] MEDS: ATORVASTATIN 20 MG TAB PO SCH (09:56)
[2021-11-24] MEDS: ZINC SULFATE 220 MG CAP PO SCH (09:56)
[2021-11-24] MEDS: hydrALAZINE HCL 50 MG TAB PO SCH ×2 (09:56→12:50)
[2021-11-24] MEDS: ASPIRIN 81 MG PO SCH (09:56)
[2021-11-24 10:16] VITALS: TEMP 98
[2021-11-24 11:29] LABS: Glucose,Whole Blood 305 mg/dL (75-99)
[2021-11-24 13:00] VITALS: BP 141/64; PULSE 53; RESP 18
--- NOTE | 2021-11-24 15:11 | P.DS ---
Providers Date of admission: 11/23/21 02:10 Expected date of discharge: 11/24/21 Attending physician: Porfirio Godwin Primary care physician: Juanjo Livingston [facility] Course: Chief Complaint: Fever or chills This is a pleasant 71-year-old patient who follows with Dr. Juanjo Livingston. Chronic stable medical conditions include prior brain bleed with some right- sided weakness in 2017, but able to walk unassisted, diabetes, GERD, hypertension, hyperlipidemia, osteoarthritis, COPD, obstructive sleep apnea uses CPAP, CK D, depression. Patient yesterday felt he has a bad cold. Then developed fever and chills. Decreased appetite tired rundown. No diarrhea. Presented to the ER. Tested positive for COVID. Patient received antibody(Bebtelovimab) infusion in the ER. Some throat discomfort. November 24: Patient's small rise in troponin was found to be from renal failure. No cardiac symptoms. No need for any further cardiac workup. Patient been up and about. Feeling well. Discussed. Discharged Past medical history to include: Brain bleed with stroke causing some residual right-sided weakness, 2018, diabetes, GERD, hypertension, hyperlipidemia, prostatitis, COPD, obstructive sleep apnea uses CPAP, IBS, depression Social history: . No history of smoking or alcohol. 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 Rate 61. Right bundle branch block. Chest x-ray: No abnormalities reported Assessment and plan: -Acute COVID 19 infection. Patient's pulse ox a good. No steroids. Supportive medications. -Diabetes mellitus type 2, chronically on insulin Lantus 40 units subcu daily at bedtime. Follow Accu-Cheks. 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 No ACS. No need for any further cardiac workup Disposition: Home Plan - Discharge Summary Discharge Rx Participant: No New Discharge Prescriptions: Continue FLUoxetine HCL [PROzac] 40 mg PO DAILY Doxazosin [Cardura] 2 mg PO HS calcitrioL [Calcitriol] 0.25 mcg PO SUWE Aspirin [Adult Low Dose Aspirin EC] 81 mg PO DAILY buPROPion HCL [buPROPion HCL SR] 150 mg PO DAILY Insulin Lispro [humaLOG Kwikpen] See Protocol SQ ACHS PRN PRN Reason: sliding scale Nitroglycerin Sl Tabs [Nitrostat] 0.4 mg SUBLINGUAL Q5M PRN #1 bottle PRN Reason: Chest Pain Multivitamins, Thera [Multivitamin (formulary)] 1 tab PO DAILY Carvedilol [Coreg] 25 mg PO BID Insulin Glargine,Hum.rec.anlog [Lantus Solostar Pen] 40 unit SQ HS #0 Rosuvastatin Calcium 10 mg PO DAILY hydrALAZINE HCL [Apresoline] 100 mg PO QID 30 Days #120 tablet Furosemide [Lasix] 40 mg PO BID@0900,1600 30 Days #60 tab NIFEdipine [NIFEdipine ER (Osmotic)] 60 mg PO DAILY Discharge Medication List Aspirin [Adult Low Dose Aspirin EC] 81 mg PO DAILY 06/27/20 [History] Doxazosin [Cardura] 2 mg PO HS 06/27/20 [History] FLUoxetine HCL [PROzac] 40 mg PO DAILY 06/27/20 [History] calcitrioL [Calcitriol] 0.25 mcg PO SUWE 06/27/20 [History] Insulin Lispro [humaLOG Kwikpen] See Protocol SQ ACHS PRN 06/28/20 [History] buPROPion HCL [buPROPion HCL SR] 150 mg PO DAILY 06/28/20 [History] Nitroglycerin Sl Tabs [Nitrostat] 0.4 mg SUBLINGUAL Q5M PRN #1 bottle 06/29/20 [Rx] Multivitamins, Thera [Multivitamin (formulary)] 1 tab PO DAILY 06/22/21 [Hi story] Carvedilol [Coreg] 25 mg PO BID 09/21/21 [History] Rosuvastatin Calcium 10 mg PO DAILY 09/21/21 [History] Furosemide [Lasix] 40 mg PO BID@0900,1600 30 Days #60 tab 09/24/21 [Rx] Insulin Glargine,Hum.rec.anlog [Lantus Solostar Pen] 40 unit SQ HS #0 09/24/21 [Rx] hydrALAZINE HCL [Apresoline] 100 mg PO QID 30 Days #120 tablet 09/24/21 [Rx] NIFEdipine [NIFEdipine ER (Osmotic)] 60 mg PO DAILY 11/23/21 [History] Follow up Appointment(s)/Referral(s): Juanjo Livingston MD [Primary Care Provider] - 1 Week (Patient to schedule appointment date and time, as office is closed at time of discharge. Ensure the office is aware this is an appointment following a hospital stay.) Patient Instructions/Handouts: COVID-19 (Coronavirus Disease 2019) (DC)
== END 2021-11-24 16:40 | disposition home health service (06) | DRG 178 ==
LOC: EC 20:43 → 3SCARD 11-23 02:10
PROVIDERS: ADMIT Hospitalist; ATTEND Hospitalist
PROC: XW0 New Technology, Anatomical Regions, Introduction (ICD-10-PCS; principal; 2021-11-23)
DX: U07.1 COVID-19 (principal); I13.0 Hypertensive heart and chronic kidney disease with heart failure and stage 1 through stage 4 chronic kidney disease, or unspecified chronic kidney disease; I69.351 Hemiplegia and hemiparesis following cerebral infarction affecting right dominant side; N18.4 Chronic kidney disease, stage 4 (severe); J44.9 Chronic obstructive pulmonary disease, unspecified; E11.22 Type 2 diabetes mellitus with diabetic chronic kidney disease; E78.5 Hyperlipidemia, unspecified; F32.A Depression, unspecified; I50.9 Heart failure, unspecified; J98.6 Disorders of diaphragm; G47.33 Obstructive sleep apnea (adult) (pediatric); K21.9 Gastro-esophageal reflux disease without esophagitis; K58.9 Irritable bowel syndrome, unspecified; M19.91 Primary osteoarthritis, unspecified site; Z79.4 Long term (current) use of insulin; Z79.82 Long term (current) use of aspirin; Z79.899 Other long term (current) drug therapy; Z80.0 Family history of malignant neoplasm of digestive organs; Z80.3 Family history of malignant neoplasm of breast; Z85.038 Personal history of other malignant neoplasm of large intestine; Z96.651 Presence of right artificial knee joint; Z90.49 Acquired absence of other specified parts of digestive tract; N41.9 Inflammatory disease of prostate, unspecified
CPT/HCPCS: 71045; 80048; 80053; 84484; 85025; 87635; 99285

== ENCOUNTER → 2021-11-22 | Outpatient (CLI) | payer MEDICARE ==
--- NOTE | 2021-11-22 11:42 | SFUN ---
SLEEP CENTER FOLLOW UP NOTE DATE OF SERVICE: 11/22/2021 The 71-year-old gentleman has been followed in Sleep Center for treatment of obstructive sleep apnea-hypopnea syndrome. The patient continues to use his CPAP equipment every night for the whole night. He does not sleep well without machine. He still has Dream Station 1 unit which has been on recall. According to patient, he removed some part from the unit which was the reason for recall. I checked his CPAP unit. Pressure is 11.1 cm of water. Usage is every night, 8.6 hours average. The mask fit 99% which is great. Periodic breathing scoring only 1% which is acceptable. Apnea-hypopnea index reading is 3.4, which is in normal range. Range of the pressure is in automatic regimen between 8 and 16. [place] Sleepiness Scale today is 6, which is normal. MEDICATIONS: Bupropion 150 mg once a day, 0.25 mg twice a week, carvedilol 12.5 mg twice a day, clopidogrel 75 mg once a day. Doxazosin 2 mg once a day, ferrous sulfate 325 mg twice a day, fluoxetine 40 mg once a day, Humalog sliding scale, hydralazine 100 mg 4 times a day, Lantus 40 units once a day, nifedipine 60 mg once a day, rosuvastatin 10 mg once a day, aspirin 81 mg once a day. PHYSICAL EXAMINATION: GENERAL: Patient in no distress. BP is 143/61 HR 62, RR 14, weight 257.6 pounds height 5 feet 10-1/2 inches. Oropharynx: Low position of soft palate. NECK: Supple, no JVD. Thyroid is not palpable. LUNGS: Clear to percussion and to auscultation. Good air exchange. No wheezing or rhonchi. HEART: S1, S2 regular. No murmurs, gallops, or rubs. ABDOMEN: Obese. Soft and nontender. Bowel sounds are present. No organomegaly appreciated. EXTREMITIES: No clubbing or cyanosis. LINE LEADER: Awake, alert, and oriented X3. Cranial nerves 2 to 7 intact. There is no fasciculation or atrophy. noted. No focal deficits observed. IMPRESSION: 1. Severe obstructive sleep apnea, original AHI 82.8. The patient demonstrated 100% compliance with treatment, benefitting from treatment. 2. Hypertension. 3. Status post hemorrhagic stroke. 4. Obesity. 5. Diabetes mellitus. 6. Hyperlipidemia. 7. Acid reflux. 8. Depression. 9. History of arthritis. 10.Status post bilateral cataract surgery. PLAN: 1. Patient Dream Station 1 unit which is on recall should be replaced. 2. Patient will continue to use PAP equipment every night for the whole night. 3. Sleep hygiene with regular time in bed for at least 7-1/2 to 8 hours. 4. Precautions related to driving. No driving if feeling sleepiness. 5. I will maintain all necessary prescription for PAP supplies including mask, tube, filters. 6. Watching weight. 7. Follow-up visit in 6 months or earlier if patient has any problems. Thank you very much for allowing me to participate in management of your patient. Sincerely, West Brown MD, PhD, FAASM Diplomat of [employer] Sleep Medicine Board of [employer] [facility] [place] MMODL / SERINAN: [id number] /
== END ==
LOC: SLEEP 10:09
PROVIDERS: ATTEND Internal Medicine
DX: G47.33 Obstructive sleep apnea (adult) (pediatric) (principal); E11.9 Type 2 diabetes mellitus without complications; E78.5 Hyperlipidemia, unspecified; K21.9 Gastro-esophageal reflux disease without esophagitis; F32.A Depression, unspecified; M19.90 Unspecified osteoarthritis, unspecified site; Z98.41 Cataract extraction status, right eye; Z98.42 Cataract extraction status, left eye; Z99.89 Dependence on other enabling machines and devices; Z79.4 Long term (current) use of insulin; I10 Essential (primary) hypertension

== ENCOUNTER → 2023-03-19 | Outpatient (CLI) | payer MEDICARE ==
--- NOTE | 2023-03-20 10:59 | P.PN ---
Subjective DATE: 03/19/2023 FOLLOW UP VISIT. Patient with obstructive sleep apnea hypopnea syndrome return to sleep center for follow-up visit. Information from previous visit have been reviewed. Patient is using PAP equipment every night for the whole night, getting PAP supplies in time. The patient does not have significant problems with the mask, PAP unit and humidification. [place] sleepiness scale is 4, which is normal. I checked information from PAP unit. PAP unit pressure 8-16, average 10 cm H2O. Usage is 100 % for more then 4 hours, average 9.4 hours per night. Mask feet 96 - 98%, which indicate good feet over the mask. Apnea Hypopnea Index is 4.4, which is normal. MEDICATIONS:1. Bupropion 150 mg once a day 2. Carvedilol 12.5 mg twice a day 3. Clopidogrel 75 mg once a day 4. Doxazosin 2 mg once a day 5. Nifedipine 60 mg once a day 6. Insulin During physical exam: GENERAL: A pleasant patient without any distress. VITAL SIGNS: BP 142/61, HR 54, RR 12 , weight 245.8, temperature 97.0, oxygen saturation at room air 98 % . HEENT: PERRLA, EOMI.low position of soft palate, Mallapati 3 . NECK: Supple. No JVD. LUNGS: Clear to percussion and to auscultation. Good air exchange. No wheezing or rhonchi. HEART: S1, S2 regular. ABDOMEN: Soft and nontender.[] EXTREMITIES: No clubbing or cyanosis. ASSURANCE ASSISTANT: Awake, alert, and oriented x3. No focal deficit. Impressions: 1. Obstructive sleep apnea-hypopnea syndrome. Patient demonstrated great compliance with treatment, benefiting from treatment. 2. Hypertension. 3. Diabetes mellitus. 4. Status post hemorrhagic stroke. 5. Hyperlipidemia. 6. Mild obesity, BMI 35.1, patient lost 12 pounds comparing to the previous visit. 7. Acid reflux. 8. Depression. 9. History of arthritis. 10. Status post bilateral cataract surgery. Plan: 1. Continue using PAP equipment every night for the whole night. 2. To change air filter at least 1-2 times per month. 3. PAP unit should stay lower then position of the head. 4. Advised patient to remove all remaining water from humidifier canister daily and make it dry after each usage. Refill canister with fresh distilled water before each usage. 5. Sleep hygiene with regular time in bed for at least 8 hours. 6. Precautions related to driving. No driving if feel any sleepiness. 7. I will maintain prescription for PAP supplies including mask, tube, filters. 8. Follow up visit in 6 months or earlier if patient has any problems. 9. Watching and continue losing weight. Thank you very much for allowing me to participate in the management of your patient. West Brown MD, PhD, FAASM. Diplomat of [place] [employer], Sleep Medicine Board by [place] [employer] Industry Segment Specialist of [facility] [place]
== END ==
LOC: 3 N SLEEP 15:58
PROVIDERS: ATTEND Internal Medicine
DX: G47.33 Obstructive sleep apnea (adult) (pediatric) (principal); E11.9 Type 2 diabetes mellitus without complications; E66.9 Obesity, unspecified; E78.5 Hyperlipidemia, unspecified; F32.A Depression, unspecified; E11.36 Type 2 diabetes mellitus with diabetic cataract; I10 Essential (primary) hypertension; K21.9 Gastro-esophageal reflux disease without esophagitis; M19.90 Unspecified osteoarthritis, unspecified site; Z68.35 Body mass index [BMI] 35.0-35.9, adult; Z79.02 Long term (current) use of antithrombotics/antiplatelets; Z79.899 Other long term (current) drug therapy; Z86.73 Personal history of transient ischemic attack (TIA), and cerebral infarction without residual deficits; Z98.890 Other specified postprocedural states; Z99.89 Dependence on other enabling machines and devices; Z79.4 Long term (current) use of insulin
CPT/HCPCS: 99212

== ENCOUNTER → 2023-09-24 | Outpatient (CLI) | payer MEDICARE ==
[2023-09-24 14:35] VITALS: BP 167/69; PULSE 56; RESP 16; TEMP 98.4
--- NOTE | 2023-09-24 14:58 | P.PN ---
Subjective DATE: 09/24/2023 FOLLOW UP VISIT. Patient with obstructive sleep apnea hypopnea syndrome return to sleep center for follow-up visit. Information from previous visit have been reviewed. Patient is using DreamStation 1 Respironics unit, which was replaced after recall. Patient is using PAP equipment every night for the whole night, getting PAP s upplies in time. The patient does not have significant problems with the mask, PAP unit and humidification. [place] sleepiness scale is 2, which is normal. I checked information from PAP unit. PAP unit pressure 8-16, average around 10 cm H2O. Usage is 100% for more then 4 hours, average 9.4 hours per night. Leak is no significant, mask feet for 96%. Apnea Hypopnea Index is 3.2, which is normal. MEDICATIONS:1. Carvedilol 12.5 mg twice a day 2. Clopidogrel 75 mg once a day 3. Doxazosin 2 mg once a day 4. Nifedipine 60 mg once a day 5. Insulin 6. Bupropion 150 mg once a day During physical exam: GENERAL: A pleasant patient without any distress. VITAL SIGNS: Please see below. HEENT: PERRLA, EOMI.low position of soft palate, Mallapati 3 . NECK: Supple. No JVD. LUNGS: Clear to percussion and to auscultation. Good air exchange. No wheezing or rhonchi. HEART: S1, S2 regular. ABDOMEN: Soft and nontender.[] EXTREMITIES: No clubbing or cyanosis. COURT RECORDER: Awake, alert, and oriented x3. No focal deficit. Impressions: 1. Obstructive sleep apnea-hypopnea syndrome. Patient demonstrated great compliance with treatment, benefiting from treatment. 2. Hypertension. 3. Diabetes mellitus. 4. Status post hemorrhagic stroke. 5. Hyperlipidemia. 6. Mild obesity, patient lost 4 pounds comparing with previous visit. 7. Acid reflux. 8. Depression. 9. Status post bilateral cataract surgery. 10. History of arthritis. Plan: 1. Continue using PAP equipment every night for the whole night. 2. To change air filter at least 1-2 times per month. 3. PAP unit should stay lower then position of the head. 4. Advised patient to remove all remaining water from humidifier canister daily and make it dry after each usage. Refill canister with fresh distilled water before each usage. 5. Sleep hygiene with regular time in bed for at least 8 hours. 6. Precautions related to driving. No driving if feel any sleepiness. 7. I will maintain prescription for PAP supplies including mask, tube, filters. 8. Watching and continue losing weight. 9. Follow up visit in 6 months or earlier if patient has any problems. Thank you very much for allowing me to participate in the management of your patient. West Brown MD, PhD, FAASM. Diplomat of [employer], Sleep Medicine Board by [employer] Net [employer] Developer of [facility] [place] Objective - Vital Signs Vital signs: Vital Signs Temp 98.4 F 09/24/23 14:32 Pulse 56 L 09/24/23 14:32 Resp 16 09/24/23 14:32 BP 167/69 09/24/23 14:32 Pulse Ox 95 09/24/23 14:32 FiO2 Intake & Output 09/23/23 09/24/23 09/24/23 18:59 06:59 18:59 Weight 109.316 kg
== END ==
LOC: 3 N SLEEP 13:58
PROVIDERS: ATTEND Internal Medicine
DX: G47.33 Obstructive sleep apnea (adult) (pediatric) (principal); I10 Essential (primary) hypertension; E11.9 Type 2 diabetes mellitus without complications; E78.5 Hyperlipidemia, unspecified; F32.A Depression, unspecified; K21.9 Gastro-esophageal reflux disease without esophagitis; M19.90 Unspecified osteoarthritis, unspecified site; E66.9 Obesity, unspecified; Z86.73 Personal history of transient ischemic attack (TIA), and cerebral infarction without residual deficits; Z79.899 Other long term (current) drug therapy; Z79.4 Long term (current) use of insulin; Z79.02 Long term (current) use of antithrombotics/antiplatelets; Z99.89 Dependence on other enabling machines and devices; Z98.41 Cataract extraction status, right eye; Z98.42 Cataract extraction status, left eye; Z68.35 Body mass index [BMI] 35.0-35.9, adult
CPT/HCPCS: 99212

== ENCOUNTER 2024-02-24 09:09 | Day surgery (SDC) | payer MEDICARE ==
[2024-02-24] MEDS ORDERED: LIDOCAINE 2% (PF) 20 MG/ML 5 ML VIAL ONE (10:08)
[2024-02-24] MEDS ORDERED: VERAPAMIL 2.5 MG/ML 2 ML AMP ONE (10:08)
[2024-02-24] MEDS ORDERED: LIDOCAINE 1% INJ 10MG/ML (20 ML MDV) ONE (10:09)
[2024-02-24] MEDS ORDERED: MIDAZOLAM 2 MG/2 ML VIAL ONE (10:50)
[2024-02-24] MEDS ORDERED: ATROPINE SULFATE 0.1 MG/ML 10ML SYRINGE ONE (11:15)
[2024-02-24] MEDS ORDERED: NITROGLYCERIN-D5W PMX 25 MG/250 ML BTL IV ONE (11:15)
[2024-02-24] MEDS ORDERED: HEPARIN SODIUM 1,000 UN/ML (10ML VL) ONE (11:29)
[2024-02-24] MEDS ORDERED: CLOPIDOGREL 75 MG TAB ONE (11:33)
[2024-02-24] MEDS: IOPAMIDOL-370 100ML BTL INJ ONE (12:10)
[2024-02-24] MEDS ORDERED: INSULIN ASPART (NovoLOG) 100 UNIT/ML VIAL SQ ONE (13:26)
[2024-02-24] MEDS ORDERED: SODIUM CHLORIDE 0.9% 1,000 ML BAG ONE (23:59)
--- NOTE | 2024-03-29 10:07 | CC ---
CARDIAC CATHETERIZATION REPORT PROCEDURES PERFORMED: 1. Left heart catheterization and coronary angiography. 2. PTCA and stenting of proximal LAD with a drug-eluting stent. 3. Intravascular ultrasound of proximal LAD post procedure. 4. PTCA and stenting of a high obtuse marginal branch of circumflex which was a chronic total occlusion. PERFORMED BY: Dr. Aung Rosario. ANESTHESIA: Moderate conscious sedation time was 69 minutes. The patient was administered Versed. Oxygen saturation, hemodynamics, and EKGs were monitored closely. CLINICAL INFORMATION: The patient is a 73-year-old gentleman with a history of diabetes, chronic kidney disease, known CAD who underwent stenting of circumflex marginal, performed in June 2020. He is known to have a total occlusion of the dominant RCA, elevated filling pressures at that time. LAD had moderate noncritical disease. He has been hospitalized with congestive heart failure and non-ST elevation NH recently. His creatinine runs in the range of 3.5. We tried to optimize medical therapy, but continues to have symptoms of chest pressure and more importantly shortness of breath with activity. After due discussion with the loader magazine grinder, the patient, and with the understanding that he may end up requiring dialysis after the contrast administration, he wished to proceed with catheterization, possible PCI and was brought in for the procedure electively. His Lasix doses were held last night and this morning. Nephrology input was also taken. PROCEDURE NOTE: Under local anesthesia and strict aseptic precautions, a 6-Nepalese introducer was placed in the right femoral artery. I used standard Arianne catheters to perform coronary angiography. I used a pigtail catheter to check LV pressures. Once the catheter crossed the aortic valve went into the LV, he developed severe bradycardia. Probably, the patient had some mild IVCD with an incomplete right bundle type picture. I therefore took the catheter out, gave him 1 mg of atropine and in about 10 minutes his heart rate was back in the 70s. He remained hemodynamically stable and I then performed injection of the left system. Following coronary angiography, I noted that he had a proximal LAD lesion of 85% to 90% and also total occlusion of the high first obtuse marginal beyond the area that was stented. The vessel is diffusely disease distally. He was advised intervention that was performed in the same setting. I did not check LV pressures because of bradycardia. The catheter was taken out quickly. CARDIAC CATHETERIZATION FINDINGS: The left ventricular end-diastolic pressure was not assessed because the patient developed severe bradycardia and the catheter was taken out promptly. CORONARY ANGIOGRAPHY FINDINGS: 1. Right Coronary Artery: This vessel could not be selectively injected, it is totally occluded and fills by collaterals from the left system. 2. Left Main Coronary Artery: Very short vessel that immediately bifurcates into LAD and circumflex. No significant disease. 3. Left Anterior Descending Coronary Artery: This vessel has a proximal stenosis of about 80% with some calcification beyond if the caliber improves, gives off septal and diagonal branches with minor irregularities of less than 40% and runs towards the apex. LAD therefore has a proximal 85% to 90% stenosis which is new and represents progression of disease. 4. Left Posterior Circumflex Coronary Artery: Nondominant vessel gives off a high first obtuse marginal that was stented in June 2020. That stented area is patent but beyond that there appears to be a subtotal occlusion without much antegrade flow. There are 2 branches that come off and both are diffusely diseased. There is a groove branch that goes into the AV groove from circumflex continuation and that is free of significant disease with minor irregularities. 5. There is a good network of collaterals coming both from the circumflex and LAD branches opacifying the distal branches of RCA. FINAL IMPRESSION: This patient's filling pressures could not be assessed. He has a right-dominant system, total occlusion of the dominant RCA, which is not new, which is collateralized from the left system. Subtotal or chronic total occlusion of this is 1st obtuse marginal beyond the previous stented segment. Proximal LAD has 85% to 90% narrowing. RECOMMENDATIONS: After much deliberation and discussion, I explained to him that we will try to perform PCI of the LAD and also try the circumflex, which seems to be a chronic subtotal occlusion. The patient wished to proceed with the procedure. PCI PROCEDURE DETAILS: I used a JL3.5 guide catheter and a run-through wire. I crossed the lesion in the LAD, kept it distally. Using a 3.0 caliber 12-mm NC Trek balloon, I pre-dilated the lesion. I then deployed a 3.5 caliber 12-mm long Xience stent. Excellent angiographic result was achieved. I performed intravascular ultrasound, noted that the stent was fully expanded, matched for the vessel size and there was good apposition. I then turned my attention to the circumflex marginal. The patient received heparin about 8500 units. ACT was 218. Additional 1000 units of heparin was then given. He also received 600 mg of Plavix. He will be on aspirin and Plavix without interruption for 1 year. Attention was then turned to the circumflex vessel. With a combination of a 2.5 caliber balloon and a run-through wire, I was able to cross the lesion, wire was kept distally. Dilatation was performed up to the bifurcation of the obtuse marginal with a 2.5 caliber NC Trek balloon. I used a 2.0 balloon to initially gain access because I had difficulty advancing the 2.5 caliber balloon. Eventually, the vessel was opened up and diffuse disease was noted in both the branches beyond. I deployed a 2.5 caliber 18 mm long Xience stent almost up to the bifurcation. Decent flow was noted, but there was diffuse disease and calcification distally. A decent angiographic result was achieved. The sheath was then taken out, and Angio-Seal device WAS used to secure hemostasis and he was sent to the room in stable condition. The findings and results were discussed with the patient as well as his , Susi. He can be discharged later on today, but I will seek nephrology input prior to discharge. I will see him in the office in the next 7-15 days. MMODL / IJN: [id number] /
== END 2024-02-24 17:35 | disposition home or self-care (01) ==
LOC: CATHCVL 09:09
PROVIDERS: ATTEND Internal Medicine Interventional Cardiology
DX: I25.10 Atherosclerotic heart disease of native coronary artery without angina pectoris
CPT/HCPCS: 92978; 93458

== ENCOUNTER → 2024-05-03 | Outpatient (CLI) | payer MEDICARE ==
[2024-05-03 19:36] LABS: HCT 32.3 % (39.6-50.0); HGB 10.4 g/dL (13.0-17.0); MCHC 32.2 g/dL (32.0-37.0); MCV 87.1 FL (80.0-97.0); Mean Platelet Volume 11.4 FL (9.5-12.2); NRBC Per 100 WBC 0 X 10*3/uL (0.00-0.01); Platelet Count 249 X 10*3/uL (140-440); RBC 3.71 X 10*6/uL (4.40-5.60); RDW 14.6 % (11.5-14.5); WBC 7.61 X 10*3/uL (4.50-10.00)
[2024-05-03 19:53] LABS: % Iron Saturation 23.05 (15.00-50.00); ALT 23 U/L (10-49); AST 21 U/L (14-35); Albumin 3.7 g/dL (3.8-4.9); Albumin/Globulin Ratio 1.76 Ratio (1.60-3.17); Alkaline Phosphatase 81 U/L (41-126); BUN/Creat Ratio 14.27 Ratio (12.00-20.00); Blood Urea Nitrogen 42.8 mg/dL (9.0-27.0); Carbon Dioxide 18.9 mmol/L (21.6-31.8); Chloride 103 mmol/L (96-109); Globulin 2.1 g/dL (1.6-3.3); Glucose 103 mg/dL (70-110); Iron 59 UG/DL (65-175); Magnesium 2.5 mg/dL (1.5-2.4); Potassium 4.4 mmol/L (3.5-5.5); Sodium 140 mmol/L (135-145); Total Bilirubin <0.2 mg/dL (0.3-1.2); Total Iron Binding Capacity 256 UG/DL (228-460); Total Protein 5.8 g/dL (6.2-8.2)
[2024-05-03 23:15] LABS: Urine Creatinine 64.3 mg/dL (39.0-259.0)
[2024-05-04 13:07] LABS: Appearance,Urine Clear (Clear); Bilirubin,Urine Negative (Negative); Blood,Urine Negative (Negative); Color,Urine Yellow (Yellow); Ketones,Urine Negative (Negative); Nitrite,Urine Negative (Negative); Specific Gravity,Urine 1.011 (1.001-1.030); Urobilinogen,Urine 0.2 E.U./DL
== END | disposition home or self-care (01) ==
LOC: LABWHC1 14:10
PROVIDERS: ATTEND Internal Medicine Nephrology
CPT/HCPCS: 36415; 80053; 81003; 82043; 82306; 82570; 82728; 83540; 83550; 83735; 83970; 84100; 84550; 85027

== ENCOUNTER → 2024-05-05 | Outpatient (CLI) | payer MEDICARE ==
[2024-05-05 15:22] VITALS: BP 117/75; PULSE 64; RESP 16; TEMP 97.6
--- NOTE | 2024-05-05 15:47 | P.PROGSL ---
Subjective DATE: 05/05/2024 FOLLOW UP VISIT. Patient with obstructive sleep apnea hypopnea syndrome return to sleep center for follow-up visit. Information from previous visit have been reviewed. Patient continued to use DreamStation 1 form Respironics unit, which was fixed after a recall. Patient is using PAP equipment every night for the whole night, getting PAP supplies in time. The patient does not have significant problems with the mask, PAP unit and humidification. [place] sleepiness scale is 3, which is normal. I checked information from PAP unit. PAP unit pressure 7-14 cm H2O. Usage is 98% for more then 4 hours, average 9.7 hours per night. Mask fit 93%, which is in acceptable range. Apnea Hypopnea Index is 5.7, which is normal. MEDICATIONS have been reviewed, please see below. During physical exam: GENERAL: A pleasant patient without any distress. VITAL SIGNS: Please see below, weight is 234 lbs. HEENT: PERRLA, EOMI.low position of soft palate, Mallapati 3. NECK: Supple. No JVD. LUNGS: Clear to percussion and to auscultation. Good air exchange. No wheezing or rhonchi. HEART: S1, S2 regular. ABDOMEN: Soft and nontender.[] EXTREMITIES: No clubbing or cyanosis. TEXTILES AND CLOTHING TEACHER: Awake, alert, and oriented x3. No focal deficit. Impressions: 1. Obstructive sleep apnea-hypopnea syndrome. Patient demonstrated great compliance with treatment, benefiting from treatment. 2. Diabetes mellitus, presently hemoglobin A1c according to patient 6.8. 3. Hypertension. 4. Status post hemorrhagic stroke. 5. Hyperlipidemia. 6. History of depression. 7. Obesity, BMI 33.5 Plan: 1. Continue using PAP equipment every night for the whole night. 2. Sleep hygiene with regular time in bed for at least 7.5-8 hours 3. PAP unit should stay lower then position of the head. 4. Advised patient to remove all remaining water from humidifier canister daily and make it dry after each usage. Refill canister with fresh distilled water be fore each usage. 5. Watching and losing weight. 6. Precautions related to driving. No driving if feel any sleepiness. 7. I will maintain prescription for PAP supplies including mask, tube, filters. 8. Follow up visit in 8 months or earlier if patient has any problems. Thank you very much for allowing me to participate in the management of your patient. West Brown MD, PhD, FAASM. Diplomat of [employer], Sleep Medicine Board by [employer] Soft Work Cigar Machine Operator of [facility] [place] cc: Juanjo Livingston MD Objective - Vital Signs Vital Signs: Vital Signs Temp 97.6 F 05/05/24 15:21 Pulse 64 05/05/24 15:21 Resp 16 05/05/24 15:21 BP 117/75 05/05/24 15:21 Pulse Ox 94 L 05/05/24 15:21 FiO2 Intake & Output 05/04/24 05/05/24 05/05/24 18:59 06:59 18:59 Weight 106.141 kg Home Medications: Home Medications Medication Instructions Recorded Confirmed Type Aspirin [Adult Low Dose Aspirin EC] 81 mg PO DAILY 06/27/20 05/05/24 History Doxazosin [Cardura] 2 mg PO HS 06/27/20 05/05/24 History FLUoxetine HCL [PROzac] 40 mg PO DAILY 06/27/20 05/05/24 History calcitrioL 0.25 mcg PO SUWE 06/27/20 05/05/24 History Insulin Lispro [humaLOG Kwikpen] See Protocol SQ ACHS PRN 06/28/20 05/05/24 History buPROPion HCL [buPROPion HCL SR] 150 mg PO DAILY 06/28/20 05/05/24 History Nitroglycerin Sl Tabs [Nitrostat] 0.4 mg SUBLINGUAL Q5M PRN #1 bottle 06/29/20 05/05/24 Rx Multivitamins, Thera [Multivitamin 1 tab PO DAILY 06/22/21 05/05/24 History (formulary)] Rosuvastatin Calcium 10 mg PO DAILY 09/21/21 05/05/24 History carvediloL [Coreg] 25 mg PO BID 09/21/21 05/05/24 History Furosemide [Lasix] 40 mg PO BID@0900,1600 30 Days #60 09/24/21 05/05/24 Rx tab Insulin Glargine,Hum.rec.anlog 40 unit SQ HS #0 09/24/21 05/05/24 Rx [Lantus Solostar Pen] hydrALAZINE HCL [Apresoline] 100 mg PO QID 30 Days #120 tablet 09/24/21 05/05/24 Rx NIFEdipine [NIFEdipine ER 60 mg PO DAILY 11/23/21 05/05/24 History (Osmotic)]
== END ==
LOC: 3 N SLEEP 14:11
PROVIDERS: ATTEND Internal Medicine
CPT/HCPCS: 99212

== ENCOUNTER → 2024-11-08 | Outpatient (CLI) | payer MEDICARE ==
--- NOTE | 2024-11-08 13:03 | MR ---
EXAMINATION TYPE: MR brain/cspine wo DATE OF EXAM: 11/08/2024 12:21 PM COMPARISON: None. CLINICAL INDICATION: Male, 74 years old with history of I69.393 [place] FOLLOWING CEREBRAL INFARCTION M50.0, Loss of Balance and Hearing Loss TECHNIQUE: Multi planar multi sequence imaging of the brain. FINDINGS: The ventricles, basal cisterns and sulci overlying the cerebral convexities are moderately enlarged. Incidental septum cavum pellucidum and vergae. There is evidence of mild periventricular white matter ischemic demyelination. Remote deep white matter insults are also noted. No acute edema is seen on diffusion weighted imaging. There is no evidence for midline shift or mass effect. Acute intracranial hemorrhage or extra-axial collection is not evident. The paranasal sinuses and mastoid air cells are well-aerated. IMPRESSION: Age-related atrophic and chronic small vessel ischemic change. No acute intracranial process at this time. EXAMINATION TYPE: MR brain/cspine wo DATE OF EXAM: 11/08/2024 12:21 PM COMPARISON: None. CLINICAL INDICATION: Male, 74 years old with history of I69.393 [place] FOLLOWING CEREBRAL INFARCTION M50.0, Loss of Balance and Hearing Loss TECHNIQUE: Multiplanar MultiSpin echo imaging of the cervical spine was performed. FINDINGS: C2-C3: No evidence for degenerative disc disease. No disc bulge/herniation or protrusion. No Canal stenosis. Foramina are patent bilaterally. C3-C4: Severe disc desiccation and posterior disc bulge and partially encapsulating spur resulting in disc endplate complex. Effacement ventral thecal sac however there is no evidence for central stenos is. Moderate left foraminal encroachment. C4-C5: No evidence for degenerative disc disease. No disc bulge/herniation or protrusion. No Canal stenosis. Foramina are patent bilaterally. C5-C6: Severe disc desiccation and posterior disc bulge and partially encapsulating spur resulting in disc endplate complex. Effacement ventral thecal sac with mild central stenosis noted. Moderate righ t foraminal encroachment. C6-C7: Severe disc desiccation and posterior disc bulge and partially encapsulating spur resulting in disc endplate complex. Effacement ventral thecal sac with moderate central stenosis noted. Moderate bilateral foraminal encroachment. Increased signal within the cervical spinal cord may reflect myelop athy. C7-T1: No evidence for degenerative disc disease. No disc bulge/herniation or protrusion. No Canal stenosis. Foramina are patent bilaterally. Cervical segments are intact. Moderate scattered ventral spondylosis. There is normal alignment. Ce rvical spinal cord is of normal signal. Craniovertebral junction relationships are within normal díaz its. IMPRESSION: 1. Multilevel degenerative disc disease with disc bulging and disc endplate complex and the underlyin g of central stenosis as outlined above. There are degrees of foraminal encroachment seen. 2. Increased signal within the cervical spinal cord could reflect myelopathy. [facility], , 11/08/2024 1:01 PM
== END | disposition home or self-care (01) ==
LOC: RADMRIMAIN 10:44
PROVIDERS: ATTEND Psychiatry & Neurology Neurology
DX: M48.02 Spinal stenosis, cervical region (principal); M50.01 Cervical disc disorder with myelopathy, high cervical region; I69.393 Ataxia following cerebral infarction
CPT/HCPCS: 70551; 72141

== ENCOUNTER → 2024-12-23 | Outpatient (CLI) | payer MEDICARE ==
[2024-12-23 11:38] VITALS: BP 175/73; PULSE 64; RESP 16; TEMP 97.9
--- NOTE | 2024-12-23 12:09 | P.PROGSL ---
Subjective DATE: 12/23/2024 FOLLOW UP VISIT. Patient with obstructive sleep apnea hypopnea syndrome return to sleep center for follow-up visit. Information from previous visit have been reviewed. Patient is using PAP equipment every night for the whole night, getting PAP supplies in time. Patient has Noelle Respironics unit after fixing it. Heated humidifier does not work. [place] sleepiness scale is 3, which is normal. I checked information from PAP unit. PAP unit pressure 7-14 cm H2O. Usage is 100% for more then 4 hours, average 9.5 hours per night. Mask fit 84%, which is acceptable. Apnea Hypopnea Index is 6.7, which is borderline. MEDICATIONS have been reviewed, please see below. During physical exam: GENERAL: A pleasant patient without any distress. VITAL SIGNS: Please see below, weight is 247.6 lbs. HEENT: PERRLA, EOMI.low position of soft palate, Mallapati 3. NECK: Supple. No JVD. LUNGS: Clear to percussion and to auscultation. Good air exchange. No wheezing or rhonchi. HEART: S1, S2 regular. ABDOMEN: Soft and nontender. Obese EXTREMITIES: No clubbing or cyanosis. MAINTENANCE INSPECTOR: Awake, alert, and oriented x3. No focal deficit. Impressions: 1. Obstructive sleep apnea-hypopnea syndrome. Patient demonstrated great compliance with treatment, benefiting from treatment. 2. Obesity, BMI 35.9, patient increased weight on 13 pounds comparing with previous visit. 3. Diabetes mellitus, recent hemoglobin A1c around 5.8 according to patient. 4. Hypertension. 5. Status post hemorrhagic stroke. 6. Hyperlipidemia. 7. History of depression. Plan: 1. Continue using PAP equipment every night for the whole night. Prescription to replace CPAP unit. Heated humidifier does not work. 2. Sleep hygiene with regular time in bed for at least 7.5-8 hours 3. PAP unit should stay lower then position of the head. 4. Advised patient to remove all remaining water from humidifier canister daily and make it dry after each usage. Refill canister with fresh distilled water before each usage. 5. Watching weight. 6. Precautions related to driving. No driving if feel any sleepiness. 7. I will maintain prescription for PAP supplies including mask, tube, filters. 8. Follow up visit in 1-3 months after patient will get new CPAP unit. Thank you very much for allowing me to participate in the management of your patient. West Brown MD, PhD, FAASM. Diplomat of [employer], Sleep Medicine Board by [employer] Online Advertising Analyst of [facility] [place] Objective - Vital Signs Vital Signs: Vital Signs Temp 97.9 F 12/23/24 11:36 Pulse 64 12/23/24 11:36 Resp 16 12/23/24 11:36 BP 175/73 12/23/24 11:36 Pulse Ox 96 12/23/24 11:36 FiO2 Intake & Output 12/22/24 12/23/24 12/23/24 18:59 06:59 18:59 Weight 112.207 kg Home Medications: Home Medications Medication Instructions Recorded Confirmed Type Aspirin [Adult Low Dose Aspirin EC] 81 mg PO DAILY 06/27/20 05/31/24 History Doxazosin [Cardura] 2 mg PO HS 06/27/20 05/31/24 History FLUoxetine HCL [PROzac] 40 mg PO DAILY 06/27/20 05/31/24 History calcitrioL 0.25 mcg PO SUWE 06/27/20 05/31/24 History Insulin Lispro [humaLOG Kwikpen] See Protocol SQ ACHS PRN 06/28/20 05/31/24 History buPROPion HCL [buPROPion HCL SR] 150 mg PO DAILY 06/28/20 05/31/24 History Nitroglycerin Sl Tabs [Nitrostat] 0.4 mg SUBLINGUAL Q5M PRN #1 bottle 06/29/20 05/31/24 Rx Multivitamins, Thera [Multivitamin 1 tab PO DAILY 06/22/21 05/31/24 History (formulary)] Rosuvastatin Calcium 10 mg PO DAILY 09/21/21 05/31/24 History carvediloL [Coreg] 25 mg PO BID 09/21/21 05/31/24 History Furosemide [Lasix] 40 mg PO BID@0900,1600 30 Days #60 09/24/21 05/31/24 Rx tab Insulin Glargine,Hum.rec.anlog 40 unit SQ HS #0 09/24/21 05/31/24 Rx [Lantus Solostar Pen] hydrALAZINE HCL [Apresoline] 100 mg PO QID 30 Days #120 tablet 09/24/21 05/31/24 Rx NIFEdipine [NIFEdipine ER 60 mg PO DAILY 11/23/21 05/31/24 History (Osmotic)] Sodium Bicarbonate Tab 650 mg PO TID 05/17/24 05/31/24 History
== END ==
LOC: 3 N SLEEP 11:14
PROVIDERS: ATTEND Internal Medicine
DX: G47.33 Obstructive sleep apnea (adult) (pediatric) (principal); E66.9 Obesity, unspecified; E11.9 Type 2 diabetes mellitus without complications; I10 Essential (primary) hypertension; E78.5 Hyperlipidemia, unspecified; F32.A Depression, unspecified; Z86.73 Personal history of transient ischemic attack (TIA), and cerebral infarction without residual deficits; Z68.35 Body mass index [BMI] 35.0-35.9, adult
CPT/HCPCS: 99212

== ENCOUNTER 2025-02-08 11:50 | Inpatient (IN) | payer MEDICARE ==
--- NOTE | 2025-02-08 12:51 | ED ---
SOB HPI - General Chief Complaint: Shortness of Breath Stated Complaint: SOB Time Seen by Provider: 02/08/25 12:38 Source: patient, RN notes reviewed, old records reviewed Mode of arrival: ambulatory Limitations: no limitations - History of Present Illness Initial Comments: This is a 74 male to the ER with shortness of breath. No history of asthma or C OPD or smoking patient does have history of heart failure on Lasix has a 10 pound weight gain in 2 days. Mild lower extremity swelling but none worse than normal. Patient states his exertional shortness of breath is severely increased and a shortness of breath without activity. MD Complaint: shortness of breath -: days(s) Severity: severe Severity scale (1-10): 8 Consistency: constant Improves With: rest Worsens With: exertion, movement Known History Of: congestive heart failure Associated Symptoms: orthopnea, lower extremity pain, lower abdominal swelling, palpitations Treatments Prior to Arrival: none - Related Data Home Medications Medication Instructions Recorded Confirmed Aspirin [Adult Low Dose Aspirin EC] 81 mg PO DAILY 06/27/20 02/08/25 Doxazosin [Cardura] 2 mg PO HS 06/27/20 02/08/25 FLUoxetine HCL [PROzac] 40 mg PO DAILY 06/27/20 02/08/25 calcitrioL 0.25 mcg PO SUWE 06/27/20 02/08/25 Insulin Lispro [humaLOG Kwikpen] 6 - 8 unit SQ AC-TID 06/28/20 02/08/25 buPROPion HCL [buPROPion HCL SR] 150 mg PO DAILY 06/28/20 02/08/25 Multivitamins, Thera [Multivitamin 1 tab PO DAILY 06/22/21 02/08/25 (formulary)] Rosuvastatin Calcium 10 mg PO DAILY 09/21/21 02/08/25 NIFEdipine [NIFEdipine ER 60 mg PO DAILY 11/23/21 02/08/25 (Osmotic)] Sodium Bicarbonate Tab 650 mg PO BID 05/17/24 02/08/25 Calcium Carbonate [Calcium] 600 mg PO DAILY 02/08/25 02/08/25 Cholecalciferol (Vitamin D3) 50 mcg PO DAILY 02/08/25 02/08/25 [Vitamin D3 (50 Mcg = 2000 Iu)] Clopidogrel [Plavix] 75 mg PO DAILY 02/08/25 02/08/25 Insulin Glargine,Hum.rec.anlog 20 unit SQ HS 02/08/25 02/08/25 [Lantus Solostar Pen] Isosorbide Mononitrate ER [Imdur] 30 mg PO DAILY 02/08/25 02/08/25 lisinopriL [Zestril] 5 mg PO DAILY 02/08/25 02/08/25 Previous Rx's Medication Instructions Recorded Nitroglycerin Sl Tabs [Nitrostat] 0.4 mg SUBLINGUAL Q5M PRN #1 bottle 06/29/20 Furosemide [Lasix] 40 mg PO BID@0900,1600 30 Days #60 09/24/21 tab hydrALAZINE HCL [Apresoline] 100 mg PO QID 30 Days #120 tablet 09/24/21 Dapagliflozin Propanediol [Farxiga] 5 mg PO DAILY #30 tab 02/11/25 Pantoprazole [Protonix] 40 mg PO AC-BRKFST #30 tab 02/11/25 Potassium Chloride ER [K-Dur 20] 20 meq PO DAILY #30 tab 02/11/25 carvediloL [Coreg] 6.25 mg PO BID-W/MEALS #60 tab 02/11/25 Allergies Allergy/AdvReac Type Severity Reaction Status Date / Time No Known Allergies Allergy Verified 02/08/25 16:00 Review of Systems ROS Statement: Those systems with pertinent positive or pertinent negative responses have been documented in the HPI. ROS Other: All systems not noted in ROS Statement are negative. Past Medical History Past Medical History: Heart Failure, CVA/TIA, Diabetes Mellitus, GERD/Reflux, Hyperlipidemia, Hypertension, Osteoarthritis (OA), Renal Disease, Sleep Apnea/CPAP/BIPAP Additional Past Medical History / Comment(s): RECENT INPT FOR CHF 09/21-09/24/21, Hx CVA 03/2018, "right side finnicky sometimes still", Chronic kidney disease, CPAP use. History of Any Multi-Drug Resistant Organisms: None Reported Past Surgical History: Cholecystectomy, Heart Catheterization, Joint Replacement Additional Past Surgical History / Comment(s): Bilateral Cataract surgery., STENT PLACED PLACED IN BILAT DUCT, RT TKA, COLONOSCOPY Past Anesthesia/Blood Transfusion Reactions: No Reported Reaction Date of Last Stent Placement:: 2019 Past Psychological History: No Psychological Hx Reported, Depression Smoking Status: Never smoker - Past Family History Father Family Medical History: Cancer Additional Family Medical History / Comment(s): Colon Cancer. Sister(s) Family Medical History: Cancer Additional Family Medical History / Comment(s): Breast cancer. General Exam Limitations: no limitations General appearance: alert, in no apparent distress Head exam: Present: atraumatic, normocephalic, normal inspection Eye exam: Present: normal appearance, PERRL, EOMI. Absent: scleral icterus, conjunctival injection, periorbital swelling ENT exam: Present: normal exam, mucous membranes moist Neck exam: Present: normal inspection. Absent: tenderness, meningismus, lymphadenopathy Respiratory exam: Present: normal lung sounds bilaterally. Absent: respiratory distress, wheezes, rales, rhonchi, stridor Cardiovascular Exam: Present: regular rate, normal rhythm, normal heart sounds. Absent: systolic murmur, diastolic murmur, rubs, gallop, clicks GI/Abdominal exam: Present: soft, normal bowel sounds. Absent: distended, tenderness, guarding, rebound, rigid Extremities exam: Present: normal inspection, full ROM, normal capillary refill. Absent: tenderness, pedal edema, joint swelling, calf tenderness Back exam: Present: normal inspection Neurological exam: Present: alert, oriented X3, CN II-XII intact Psychiatric exam: Present: normal affect, normal mood Skin exam: Present: warm, dry, intact, normal color. Absent: rash Course Vital Signs 02/08/25 02/08/25 02/08/25 12:18 12:30 14:00 Temperature 97.9 F Pulse Rate 58 L 60 55 L Respiratory 20 16 16 Rate Blood Pressure 126/62 148/70 164/81 O2 Sat by Pulse 90 L 94 L 95 Oximetry 02/08/25 02/08/25 02/08/25 14:09 15:52 16:20 Temperature Pulse Rate 55 L 81 61 Respiratory 18 18 Rate Blood Pressure 106/51 147/68 O2 Sat by Pulse 95 95 Oximetry 02/08/25 02/08/25 02/08/25 17:00 18:00 21:09 Temperature 98.5 F 98.1 F Pulse Rate 62 66 71 Respiratory 16 18 16 Rate Blood Pressure 149/66 149/65 166/75 O2 Sat by Pulse 94 L 92 L 95 Oximetry - Reevaluation(s) Reevaluation #1: 02/08/25 14:12 Medical records reviewed Reevaluation #2: 02/08/25 15:25 Symptoms really unimproved here in the ER Reevaluation #3: 02/08/25 15:25 Patient informed of results questions answered Reevaluation #4: Was pt. sent in by a medical professional or institution (SAUNDRA Acevedo, INTERVENTIONAL RADIOLOGY RN, urgent care, hospital, or usp...) When possible be specific @ -no Did you speak to anyone other than the patient for history (EMS, parent, family, police, friend...)? What history was obtained from this source @ -no Did you review nursing and triage notes (agree or disagree)? Why? @ -agree Are old charts reviewed (outside hosp., previous admission, EMS record, old EKG, old radiological studies, urgent care reports/EKG's, usp records)? Report findings @ -yes Differential Diagnosis (chest pain, altered mental status, abdominal pain women, abdominal pain men, vaginal bleeding, weakness, fever, dyspnea, syncope, headache, dizziness, GI bleed, back pain, seizure, CVA, palpatations, mental health, musculoskeletal)? @ -prior EKG interpreted by me (3pts min.). @ -yes X-rays interpreted by me (1pt min.). @ -yes negative for acute disease CT interpreted by me (1pt min.). @ -no U/S interpreted by me (1pt. min.). @ -no What testing was considered but not performed or refused? (CT, X-rays, U/S, labs)? Why? @ -none What meds were considered but not given or refused? Why? @ -none Did you discuss the management of the patient with other professionals (professionals i.e. SAUNDRA Acevedo, INTERVENTIONAL RADIOLOGY RN, lab, RT, psych nurse, family welfare social work professor, urinalysis technician, teacher, motorcycle police officer, corrections caseworker)? Give summary @ -no Was smoking cessation discussed for >3mins.? @ -no Was critical care preformed (if so, how long)? @ -no Were there social determinants of health that impacted care today? How? (Homelessness, low income, unemployed, alcoholism, drug addiction, transportation, low edu. Level, literacy, decrease access to med. care, halfway, r ehab)? @ -none Was there de-escalation of care discussed even if they declined (Discuss DNR or withdrawal of care, Hospice)? DNR status @ -no What co-morbidities impacted this encounter? (DM, HTN, Smoking, COPD, CAD, Cancer, CVA, ARF, Chemo, Hep., AIDS, mental health diagnosis, sleep apnea, morbid obesity)? @ -none Was patient admitted / discharged? Hospital course, mention meds given and route , prescriptions, significant lab abnormalities, going to OR and other pertinent info. @ - 74 male to ER for evaluation of shortness of breath exertional dyspnea severe CHF here in the ER. Patient will be admitted for diuresis and cardiology nephrology evaluation Admitted Undiagnosed new problem with uncertain prognosis? @ -no Drug Therapy requiring intensive monitoring for toxicity (Heparin, Nitro, Insulin, Cardizem)? @ -no Were any procedures done? @ -no Diagnosis/symptom? @ -CHF CKD renal failure Acute, or Chronic, or Acute on Chronic? @ -Acute Uncomplicated (without systemic symptoms) or Complicated (systemic symptoms)? @ -Complicated Side effects of treatment? @ -no Exacerbation, Progression, or Severe Exacerbation? @ -exacerbation Poses a threat to life or bodily function? How? (Chest pain, [place], [place], pneumonia, PE, COPD, DKA, ARF, appy, cholecystitis, CVA, Diverticulitis, Homicidal, Suicidal, threat to staff... and all critical care pts) @ -yes 02/18/25 21:07 Reevaluation #5: Differential Dyspnea: Coronary syndrome, arrhythmia, tamponade, asthma, COPD, pulmonary embolism, pneumonia, pneumothorax, pulmonary effusion, anaphylaxis, diabetic ketoacidosis, flailed chest, pulmonary contusion, diaphragmatic rupture, anemia, neuromuscular, this is not meant to be an all-inclusive list. - Consultations Consultation #1: Spoke with [facility] who agrees to admit this patient Medical Decision Making - Medical Decision Making 74 male to ER for evaluation of shortness of breath exertional dyspnea severe CHF here in the ER. Patient will be admitted for diuresis and cardiology nephrology evaluation - Lab Data Result diagrams: 02/10/25 06:14 02/11/25 05:57 Lab Results 02/08/25 02/08/25 02/08/25 Range/Units 12:51 12:51 12:51 WBC 8.11 (4.50-10.00) 10*3/uL RBC 2.99 L (4.40-5.60) 10*6/uL Hgb 8.9 L (13.0-17.0) g/dL Hct 27.0 L (39.6-50.0) % MCV 90.3 (80.0-97.0) fL MCH 29.8 (27.0-32.0) pg MCHC 33.0 (32.0-37.0) g/dL Plt Count 235 (140-440) 10*3/uL MPV 10.9 (9.5-12.2) fL Immature Gran % (Auto) 0.2 % Neutrophils % 70.3 % Lymphocytes % 9.5 % Monocytes % 9.4 % Eosinophils % 9.1 % Basophils % 1.5 % Immature Gran # 0.02 (0.00-0.04) 10*3/uL Neutrophils # 5.70 (1.80-7.70) 10*3/uL Lymphocytes # 0.77 L (0.90-5.00) 10*3/uL Monocytes # 0.76 (0.20-1.00) 10*3/uL Eosinophils # 0.74 H (0.04-0.35) 10*3/uL Basophils # 0.12 H (0.00-0.10) 10*3/uL PT 11.3 (10.0-12.5) sec INR 1.0 (<1.2) APTT 25.1 (22.0-30.0) sec Sodium 136 L (137-145) mmol/L Potassium 4.2 (3.5-5.1) mmol/L Chloride 103 (98-107) mmol/L Carbon Dioxide 22 (22-30) mmol/L Anion Gap 11 mmol/L BUN 47 H (9-20) mg/dL Creatinine 3.33 H (0.66-1.25) mg/dL Est GFR (CKD-EPI)AfAm 20 (>60 ml/min/1.73 sqM) Est GFR (CKD-EPI)NonAf 17 (>60 ml/min/1.73 sqM) Glucose 172 H (74-99) mg/dL Plasma Lactic Acid Dusty (0.7-2.0) mmol/L Calcium 8.6 (8.4-10.2) mg/dL Magnesium 2.6 H (1.6-2.3) mg/dL Total Bilirubin 0.6 (0.2-1.3) mg/dL AST 20 (17-59) U/L ALT 17 (4-49) U/L Alkaline Phosphatase 74 (38-126) U/L Troponin I (0.000-0.034) ng/mL NT-Pro-B Natriuret Pep 48461 pg/mL Total Protein 6.0 L (6.3-8.2) g/dL Albumin 3.6 (3.5-5.0) g/dL 02/08/25 02/08/25 Range/Units 12:51 12:51 WBC (4.50-10.00) 10*3/uL RBC (4.40-5.60) 10*6/uL Hgb (13.0-17.0) g/dL Hct (39.6-50.0) % MCV (80.0-97.0) fL MCH (27.0-32.0) pg MCHC (32.0-37.0) g/dL Plt Count (140-440) 10*3/uL MPV (9.5-12.2) fL Immature Gran % (Auto) % Neutrophils % % Lymphocytes % % Monocytes % % Eosinophils % % Basophils % % Immature Gran # (0.00-0.04) 10*3/uL Neutrophils # (1.80-7.70) 10*3/uL Lymphocytes # (0.90-5.00) 10*3/uL Monocytes # (0.20-1.00) 10*3/uL Eosinophils # (0.04-0.35) 10*3/uL Basophils # (0.00-0.10) 10*3/uL PT (10.0-12.5) sec INR (<1.2) APTT (22.0-30.0) sec Sodium (137-145) mmol/L Potassium (3.5-5.1) mmol/L Chloride (98-107) mmol/L Carbon Dioxide (22-30) mmol/L Anion Gap mmol/L BUN (9-20) mg/dL Creatinine (0.66-1.25) mg/dL Est GFR (CKD-EPI)AfAm (>60 ml/min/1.73 sqM) Est GFR (CKD-EPI)NonAf (>60 ml/min/1.73 sqM) Glucose (74-99) mg/dL Plasma Lactic Acid Dusty 1.0 (0.7-2.0) mmol/L Calcium (8.4-10.2) mg/dL Magnesium (1.6-2.3) mg/dL Total Bilirubin (0.2-1.3) mg/dL AST (17-59) U/L ALT (4-49) U/L Alkaline Phosphatase (38-126) U/L Troponin I 0.034 (0.000-0.034) ng/mL NT-Pro-B Natriuret Pep pg/mL Total Protein (6.3-8.2) g/dL Albumin (3.5-5.0) g/dL - EKG Data -: EKG Interpreted by Me (EKG is sinus bradycardia 58 [place] 221 QRS 165 QTc 498) - Radiology Data Radiology results: report reviewed (Chest x-ray is positive for CHF), image reviewed Critical Care Time Critical Care Time: Yes Total Critical Care Time: 31 Disposition Clinical Impression: Congestive heart failure, Acute pulmonary edema, Acute exacerbation of congestive heart failure, Dyspnea, DALIA (acute kidney injury) Disposition: ADMITTED IP TO THIS HOSP Condition: Fair Is patient prescribed a controlled substance at d/c from ED?: No Time of Disposition: 15:00
[2025-02-08 13:02] LABS: Basophils # (A) 0.12 10*3/uL (0.00-0.10); Basophils % (A) 1.5 %; Eosinophils # (A) 0.74 10*3/uL (0.04-0.35); Eosinophils % (A) 9.1 %; HCT 27.0 % (39.6-50.0); HGB 8.9 g/dL (13.0-17.0); Lymphocytes # (A) 0.77 10*3/uL (0.90-5.00); Lymphocytes % (A) 9.5 %; MCH 29.8 pg (27.0-32.0); MCHC 33.0 g/dL (32.0-37.0); MCV 90.3 fL (80.0-97.0); Monocytes # (A) 0.76 10*3/uL (0.20-1.00); Monocytes % (A) 9.4 %; Neutrophils # (A) 5.70 10*3/uL (1.80-7.70); Neutrophils % (A) 70.3 %; Platelet Count 235 10*3/uL (140-440); RBC 2.99 10*6/uL (4.40-5.60); RDW 13.4 % (11.5-14.5); WBC 8.11 10*3/uL (4.50-10.00)
[2025-02-08 13:18] LABS: ALT 17 U/L (4-49); AST 20 U/L (17-59); African American GFR (CKD) 20 (>60 ml/min/1.73 sqM); Albumin 3.6 g/dL (3.5-5.0); Alkaline Phosphatase 74 U/L (38-126); Anion Gap 11 mmol/L; Blood Urea Nitrogen 47 mg/dL (9-20); Calcium 8.6 mg/dL (8.4-10.2); Carbon Dioxide 22 mmol/L (22-30); Chloride 103 mmol/L (98-107); Glucose 172 mg/dL (74-99); Magnesium 2.6 mg/dL (1.6-2.3); Non-African American GFR(CKD) 17 (>60 ml/min/1.73 sqM); Potassium 4.2 mmol/L (3.5-5.1); Sodium 136 mmol/L (137-145); Total Protein 6.0 g/dL (6.3-8.2)
[2025-02-08 13:22] LABS: INR 1.0 (<1.2); Partial Thromboplastin Time 25.1 sec (22.0-30.0); Prothrombin Time 11.3 sec (10.0-12.5)
[2025-02-08 13:27] LABS: NT-Pro-B-Type Natriuretic Pept 15000 pg/mL
--- NOTE | 2025-02-08 13:43 | XR ---
EXAMINATION TYPE: XR chest 1V portable DATE OF EXAM: 02/08/2025 1:39 PM COMPARISON: Chest radiographs from 11/23/2021 TECHNIQUE: XR chest 1V portable Portable AP radiograph of the chest. CLINICAL INDICATION:Male, 74 years old with history of sob; FINDINGS: Lungs/Pleura: There is no evidence of pleural effusion, focal consolidation, or pneumothorax. Chroni c elevation of the right hemidiaphragm. Pulmonary vascularity: Central pulmonary vascular congestion. Heart/mediastinum: Cardiomediastinal silhouette is enlarged and stable. Atherosclerotic calcificatio ns are seen in the aorta. Musculoskeletal: No acute osseous pathology. IMPRESSION: Cardiomegaly and central pulmonary vascular congestion. Correlate with BNP for possible congestive he art failure. [facility], , 02/08/2025 1:41 PM
[2025-02-08] MEDS: IPRATROPIUM-ALBUTEROL 3 ML NEB INHALATION STA (13:59)
[2025-02-08] MEDS: FUROSEMIDE 10 MG/ML 4 ML VIAL IV STA (16:21)
[2025-02-08] MEDS: NITROGLYCERIN OINT 1 INCH/GM PACKET TOPICAL SCH (17:55)
[2025-02-08 21:34] LABS: Glucose,Whole Blood 224 mg/dL (70-110)
[2025-02-08] MEDS: INSULIN GLARGINE (LANTUS) 100 UNIT/ML SYR SQ SCH (22:51)
[2025-02-08] MEDS: SODIUM BICARBONATE TAB 650 MG TAB PO SCH (22:51)
[2025-02-08] MEDS: DOXAZOSIN 2 MG TAB PO SCH (22:51)
--- NOTE | 2025-02-09 00:50 | HP ---
HISTORY AND PHYSICAL CHIEF COMPLAINT: Shortness of breath. HISTORY OF PRESENT ILLNESS: This is a 74-year-old gentleman with a past medical history of CHF, GERD, was complaining of shortness of breath. The patient had about 10-pound weight gain and mild bilateral leg edema was also noted and the patient also had some renal failure. Creatinine is about 3.30, which is slowly worsening over the period. There is no history of fever, rigors, chills at this time. PAST MEDICAL HISTORY: CHF, CVA, TIA, GERD. Rest of the chart is also reviewed. HOME MEDICATIONS: Reviewed include calcitriol dose and rest of medications reviewed. ALLERGIES: None. FAMILY HISTORY: History of colon cancer. SOCIAL HISTORY: No history of smoke or alcohol abuse. REVIEW OF SYSTEMS: Fourteen-point review of systems is negative except as mentioned earlier. PHYSICAL EXAMINATION: VITAL SIGNS: Pulse is 66, blood pressure 149/64, and respirations 18. HEENT: Conjunctivae normal. NECK: No JVD. CARDIOVASCULAR: S1, S2. RESPIRATIONS: A few scattered rhonchi. ABDOMEN: Soft. NERVOUS SYSTEM: No focal deficits. LABORATORY DATA: Reviewed. Chest x-ray reviewed ASSESSMENT: 1. Congestive heart failure acute exacerbation, ejection fraction unknown. 2. History of cerebrovascular accident, transient ischemic attack. 3. Acute on chronic renal failure with chronic kidney stage 2. 4. Diabetes mellitus type 2. 5. Gastroesophageal reflux disease. 6. Hypertension. 7. Hyperlipidemia. 8. History of sleep apnea. 9. Multiple complex medical issues. RECOMMENDATIONS: This 74-year-old gentleman presents with multiple complex medical issues. We will monitor the patient closely. Recommend continue the current medications. Recommend closely follow with Cardiology and Nephrology. Guarded prognosis because of multiple complex medical conditions. Further recommendations to follow. Resume home medications. Avoid nephrotoxic medications. 2D echo with Doppler. See orders for details. MMODL / IJN: [id number] /
[2025-02-09 05:48] LABS: Glucose,Whole Blood 174 mg/dL (70-110)
[2025-02-09 08:00] LABS: HCT 28.2 % (39.6-50.0); HGB 8.9 g/dL (13.0-17.0); MCH 29.2 pg (27.0-32.0); MCHC 31.6 g/dL (32.0-37.0); MCV 92.5 FL (80.0-97.0); NRBC Per 100 WBC 0 X 10*3/uL (0.00-0.01); Platelet Count 240 X 10*3/uL (140-440); RBC 3.05 X 10*6/uL (4.40-5.60); RDW 13.3 % (11.5-14.5); WBC 8.49 X 10*3/uL (4.50-10.00)
[2025-02-09 08:01] LABS: Basophils # (A) 0.11 X 10*3/uL (0.00-0.10); Basophils % (A) 1.3 %; Eosinophils # (A) 0.59 X 10*3/uL (0.04-0.35); Eosinophils % (A) 6.9 %; Immature Grans, Automated 0.50 %; Lymphocytes # (A) 0.58 X 10*3/uL (0.90-5.00); Lymphocytes % (A) 6.8 %; Monocytes # (A) 0.72 X 10*3/uL (0.20-1.00); Monocytes % (A) 8.5 %; Neutrophils # (A) 6.45 X 10*3/uL (1.80-7.70); Neutrophils % (A) 76.0 %
[2025-02-09 08:14] LABS: Anion Gap 14.20 mmol/L (4.00-12.00); BUN/Creat Ratio 12.74 Ratio (12.00-20.00); Blood Urea Nitrogen 44.6 mg/dL (9.0-27.0); Calcium 8.5 mg/dL (8.7-10.3); Carbon Dioxide 23.8 mmol/L (21.6-31.8); Chloride 100 mmol/L (96-109); Glucose 174 mg/dL (70-110); Potassium 4.0 mmol/L (3.5-5.5); Sodium 138 mmol/L (135-145)
--- NOTE | 2025-02-09 08:43 | P.NPCON ---
History of Present Illness - Reason for Consult chronic renal failure - History of Present Illness Reason for consultation: Chronic kidney disease History of present illness: Patient is a 74-year-old male seen in renal consultation for chronic kidney disease. Patient has chronic kidney disease stage IV secondary to diabetic kidney disease with a baseline creatinine in the range of 3-3.5. GFR is near b aseline. Patient came to the hospital due to shortness of breath which she states has been going on for a month now. Patient states he has gained about 10 pounds in the last 2 to 3 days. He received a dose of 80 mg IV Lasix on admission and is currently maintained on oral Lasix 40 mg twice daily. Patient states at home he takes 60 mg of Lasix daily. He admits to good urine output. No gross hematuria or dysuria. He is on room air. He does have history of coronary disease and has multiple stents. No vomiting or diarrhea. No chest pain. Echocardiogram is currently being taken. Vital signs are stable. General: No acute distress. HEENT: Head exam is unremarkable. On room air. LUNGS: No audible rhonchi or wheezes. HEART: Rate and Rhythm are regular. ABDOMEN: Non-tender. EXTREMITITES: No edema. Past Medical History Past Medical History: Heart Failure, CVA/TIA, Diabetes Mellitus, GERD/Reflux, Hyperlipidemia, Hypertension, Osteoarthritis (OA), Renal Disease, Sleep Apnea/CPAP/BIPAP Additional Past Medical History / Comment(s): RECENT INPT FOR CHF 09/21-09/24/21, Hx CVA 03/2018, "right side finnicky sometimes still", Chronic kidney disease, CPAP use. History of Any Multi-Drug Resistant Organisms: None Reported Past Surgical History: Cholecystectomy, Heart Catheterization, Joint Replacement Additional Past Surgical History / Comment(s): Bilateral Cataract surgery., STENTS X4, RT TKA, COLONOSCOPY Past Anesthesia/Blood Transfusion Reactions: No Reported Reaction Date of Last Stent Placement:: 2019 Past Psychological History: Depression Additional Psychological History / Comment(s): Pt resides with his spouse. He is independent. DRIVES Smoking Status: Never smoker Past Alcohol Use History: None Reported Past Drug Use History: None Reported - Past Family History Father Family Medical History: Cancer Additional Family Medical History / Comment(s): Colon Cancer. Sister(s) Family Medical History: Cancer Additional Family Medical History / Comment(s): Breast cancer. Medications and Allergies Home Medications Medication Instructions Recorded Confirmed Type Aspirin [Adult Low Dose Aspirin EC] 81 mg PO DAILY 06/27/20 02/08/25 History Doxazosin [Cardura] 2 mg PO HS 06/27/20 02/08/25 History FLUoxetine HCL [PROzac] 40 mg PO DAILY 06/27/20 02/08/25 History calcitrioL 0.25 mcg PO SUWE 06/27/20 02/08/25 History Insulin Lispro [humaLOG Kwikpen] 6 - 8 unit SQ AC-TID 06/28/20 02/08/25 History buPROPion HCL [buPROPion HCL SR] 150 mg PO DAILY 06/28/20 02/08/25 History Nitroglycerin Sl Tabs [Nitrostat] 0.4 mg SUBLINGUAL Q5M PRN #1 bottle 06/29/20 02/08/25 Rx Multivitamins, Thera [Multivitamin 1 tab PO DAILY 06/22/21 02/08/25 History (formulary)] Rosuvastatin Calcium 10 mg PO DAILY 09/21/21 02/08/25 History Furosemide [Lasix] 40 mg PO BID@0900,1600 30 Days #60 09/24/21 02/08/25 Rx tab hydrALAZINE HCL [Apresoline] 100 mg PO QID 30 Days #120 tablet 09/24/21 02/08/25 Rx NIFEdipine [NIFEdipine ER 60 mg PO DAILY 11/23/21 02/08/25 History (Osmotic)] Sodium Bicarbonate Tab 650 mg PO BID 05/17/24 02/08/25 History Calcium Carbonate [Calcium] 600 mg PO DAILY 02/08/25 02/08/25 History Cholecalciferol (Vitamin D3) 50 mcg PO DAILY 02/08/25 02/08/25 History [Vitamin D3 (50 Mcg = 2000 Iu)] Clopidogrel [Plavix] 75 mg PO DAILY 02/08/25 02/08/25 History Insulin Glargine,Hum.rec.anlog 20 unit SQ HS 02/08/25 02/08/25 History [Lantus Solostar Pen] Isosorbide Mononitrate ER [Imdur] 30 mg PO DAILY 02/08/25 02/08/25 History lisinopriL [Zestril] 5 mg PO DAILY 02/08/25 02/08/25 History Allergies Allergy/AdvReac Type Severity Reaction Status Date / Time No Known Allergies Allergy Verified 02/08/25 16:00 Physical Exam Vitals: Vital Signs Temp Pulse Pulse Resp BP BP Pulse Ox 02/09/25 01:58 98.5 F 81 18 153/71 96 02/08/25 21:30 97.9 F 78 19 168/80 95 02/08/25 21:09 98.1 F 71 16 166/75 95 02/08/25 18:00 98.5 F 66 18 149/65 92 L 02/08/25 17:00 62 16 149/66 94 L 02/08/25 16:20 61 18 147/68 95 02/08/25 15:52 81 18 106/51 95 02/08/25 14:09 55 L 02/08/25 14:00 55 L 16 164/81 95 02/08/25 12:30 60 16 148/70 94 L 02/08/25 12:18 97.9 F 58 L 20 126/62 90 L Intake and Output 02/08/25 02/09/25 02/09/25 22:59 06:59 14:59 Intake Total 540 Output Total 300 200 Balance 240 -200 Intake: Oral 540 Output: Urine 300 200 Other: Voiding Method Toilet Urinal # Voids 3 Weight 111.13 kg 115 kg Results - Lab Results Most recent lab results Calcium 8.5 mg/dL (8.7-10.3) L 02/09/25 05:00 Magnesium 2.6 mg/dL (1.6-2.3) H 02/08/25 12:51 02/09/25 05:00 02/09/25 05:00 Assessment and Plan Plan: Assessment: 1. 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 2. Dyspnea secondary to fluid overload. Improved. 3. Congestive heart failure. Echocardiogram pending. 4. Volume overload. Better with diuresis. 5. Diabetes mellitus. 6. Anemia of chronic kidney disease. 7. Chronic kidney disease mineral bone disease maintained on calcitriol. 8. Hypertension with chronic kidney disease. Plan: Change to IV Lasix for a day or so. Will consider SGLT2 inhibitor if GFR remains stable. Follow-up echocardiogram. Avoid nephrotoxins. Check iron studies. Patient plans to do peritoneal dialysis when renal replacement therapy is indicated. Case discussed with cardiology. Thank you for the consultation. I will continue to follow the patient with you during his hospital stay.
[2025-02-09] MEDS ORDERED: FUROSEMIDE 40 MG TAB PO SCH (09:00)
[2025-02-09] MEDS: CHOLECALCIFEROL 25 MCG (1000 IU) TABLET PO SCH (09:13)
[2025-02-09] MEDS: CLOPIDOGREL 75 MG TAB PO SCH (09:13)
[2025-02-09] MEDS: ATORVASTATIN 20 MG TAB PO SCH (09:13)
[2025-02-09] MEDS: ISOSORBIDE MONONITRATE ER 30 MG TAB.ER.24H PO SCH (09:14)
[2025-02-09] MEDS: MULTIVITAMINS, THERA 1 EACH TAB PO SCH (09:14)
[2025-02-09] MEDS: ASPIRIN 81 MG PO SCH (09:14)
[2025-02-09] MEDS: FUROSEMIDE 10 MG/ML 4 ML VIAL IV SCH (09:15)
[2025-02-09] MEDS: buPROPion SR 150 MG TABLET.ER PO SCH (09:23)
[2025-02-09] MEDS: CALCIUM CARBONATE 500 MG CHEWABLE PO SCH (09:23)
--- NOTE | 2025-02-09 10:32 | P.CRDCN ---
History of Present Illness History of present illness: HISTORY OF PRESENT ILLNESS: This is a 74-year-old male with a past medical history significant for coronary artery disease with previous PCI, chronic kidney disease, hypertension, hyperli pidemia, cardiomyopathy, CVA, and obesity. Patient follows in the office with Dr. Rosario. We have been asked to see the patient in consultation for congestive heart failure. Patient examined at the bedside. Patient presented to the hospital with a chief complaint of shortness of breath. Patient states he has been feeling short of breath for the past couple days. He also reports having a weight gain of about 10 pounds. He denies any chest pain or pressure. He states that he does watch his salt intake at home and has been compliant with a low-sodium diet. Patient did receive a dose of IV Lasix in the emergency room. He states he is feeling better this morning. DIAGNOSTICS: - EKG reveals sinus bradycardia with first-degree AV block. Right bundle branch block.. - Chest xray cardiomegaly and central pulmonary venous congestion.. - Laboratory data: WBC 8.49. Hemoglobin 8.9. Platelet count 240. Sodium 138. Potassium 4.0. BUN 44. Creatinine 3.5. Troponin negative x 3. proBNP 15,000. - Current home cardiac medications include hydralazine 100 mg 4 times a day, rosuvastatin 10 mg daily, Lasix 40 mg twice a day, Plavix 75 mg daily, lisinopril 5 mg daily, nifedipine 60 mg daily, Imdur 30 mg daily, aspirin 81 mg daily. - Most recent echocardiogram obtained in December 2023 revealing EF 47%, lateral wall hypokinesia, aortic valve sclerosis, no significant pulm hypertension - Cardiac catheterization history: February 2024 with PTCA and stenting of proximal LAD and PTCA and stenting of high obtuse marginal branch of circumflex which was a chronic total occlusion REVIEW OF SYSTEMS: At the time of my exam: CONSTITUTIONAL: Denies fever or chills. HEENT: Denies blurred vision, vision changes, or eye pain. Denies hemoptysis CARDIOVASCULAR: Denies chest pain. Denies orthopnea. Denies PND. Denies palpitations RESPIRATORY: Denies shortness of breath. GASTROINTESTINAL: Denies abdominal pain. Denies nausea or vomiting. HEMATOLOGIC: Denies bleeding disorders. GENITOURINARY: Denies any blood in urine. SKIN: Denies pruitis. Denies rash. PHYSICAL EXAM: VITAL SIGNS: Reviewed. GENERAL: Well-developed in no acute distress. HEENT: Head is normocephalic. Pupils are equal, round. Sclerae anicteric. Mucous membranes of the mouth are moist. Neck supple. No JVD or thyromegaly LUNGS: Respirations even and unlabored. Lungs essentially clear to auscultation bilaterally. HEART: Regular rate and rhythm. S1 and S2 heard. Systolic murmur noted. ABDOMEN: Soft. Nondistended. Nontender. EXTREMITIES: Normal range of motion. No clubbing or cyanosis. Peripheral pulses intact. 1+ bilateral lower extremity edema NEUROLOGIC: Awake and alert. Oriented x 3. ASSESSMENT: Shortness of breath Acute on chronic heart failure with reduced EF, 47% Chronic kidney disease Coronary artery disease with previous PCI Hypertension Hyperlipidemia Anemia of chronic disease secondary to CKD Mild ischemic cardiomyopathy History of CVA, 2018 Obesity: BMI 34.4 PLAN: Obtain 2D echo to assess cardiac structure and function Begin IV Lasix 40 mg every 12 hours for 24 hours. Likely transition to oral diuretics tomorrow Add carvedilol 3.125 mg twice a day Discontinue nifedipine Discontinue Nitropaste Consider addition of Farxiga if kidney function remains stable Repeat BNP in a.m. Further recommendations pending patient course Nurse practitioner note has been reviewed by physician. Signing provider agrees with the documented findings, assessment, and plan of care documented by [employer] as a scribe. Past Medical History Past Medical History: Heart Failure, CVA/TIA, Diabetes Mellitus, GERD/Reflux, Hyperlipidemia, Hypertension, Osteoarthritis (OA), Renal Disease, Sleep Apnea/CPAP/BIPAP Additional Past Medical History / Comment(s): RECENT INPT FOR CHF 09/21-09/24/21, Hx CVA 03/2018, "right side finnicky sometimes still", Chronic kidney disease, CPAP use. History of Any Multi-Drug Resistant Organisms: None Reported Past Surgical History: Cholecystectomy, Heart Catheterization, Joint Replacement Additional Past Surgical History / Comment(s): Bilateral Cataract surgery., STENTS X4, RT TKA, COLONOSCOPY Past Anesthesia/Blood Transfusion Reactions: No Reported Reaction Date of Last Stent Placement:: 2019 Past Psychological History: Depression Additional Psychological History / Comment(s): Pt resides with his spouse. He is independent. DRIVES Smoking Status: Never smoker Past Alcohol Use History: None Reported Past Drug Use History: None Reported - Past Family History Father Family Medical History: Cancer Additional Family Medical History / Comment(s): Colon Cancer. Sister(s) Family Medical History: Cancer Additional Family Medical History / Comment(s): Breast cancer. Medications and Allergies Home Medications Medication Instructions Recorded Confirmed Type Aspirin [Adult Low Dose Aspirin EC] 81 mg PO DAILY 06/27/20 02/08/25 History Doxazosin [Cardura] 2 mg PO HS 06/27/20 02/08/25 History FLUoxetine HCL [PROzac] 40 mg PO DAILY 06/27/20 02/08/25 History calcitrioL 0.25 mcg PO SUWE 06/27/20 02/08/25 History Insulin Lispro [humaLOG Kwikpen] 6 - 8 unit SQ AC-TID 06/28/20 02/08/25 History buPROPion HCL [buPROPion HCL SR] 150 mg PO DAILY 06/28/20 02/08/25 History Nitroglycerin Sl Tabs [Nitrostat] 0.4 mg SUBLINGUAL Q5M PRN #1 bottle 06/29/20 02/08/25 Rx Multivitamins, Thera [Multivitamin 1 tab PO DAILY 06/22/21 02/08/25 History (formulary)] Rosuvastatin Calcium 10 mg PO DAILY 09/21/21 02/08/25 History Furosemide [Lasix] 40 mg PO BID@0900,1600 30 Days #60 09/24/21 02/08/25 Rx tab hydrALAZINE HCL [Apresoline] 100 mg PO QID 30 Days #120 tablet 09/24/21 02/08/25 Rx NIFEdipine [NIFEdipine ER 60 mg PO DAILY 11/23/21 02/08/25 History (Osmotic)] Sodium Bicarbonate Tab 650 mg PO BID 05/17/24 02/08/25 History Calcium Carbonate [Calcium] 600 mg PO DAILY 02/08/25 02/08/25 History Cholecalciferol (Vitamin D3) 50 mcg PO DAILY 02/08/25 02/08/25 History [Vitamin D3 (50 Mcg = 2000 Iu)] Clopidogrel [Plavix] 75 mg PO DAILY 02/08/25 02/08/25 History Insulin Glargine,Hum.rec.anlog 20 unit SQ HS 02/08/25 02/08/25 History [Lantus Solostar Pen] Isosorbide Mononitrate ER [Imdur] 30 mg PO DAILY 02/08/25 02/08/25 History lisinopriL [Zestril] 5 mg PO DAILY 02/08/25 02/08/25 History Allergies Allergy/AdvReac Type Severity Reaction Status Date / Time No Known Allergies Allergy Verified 02/08/25 16:00 Physical Exam Vitals: Vital Signs Temp Pulse Pulse Pulse Resp BP BP 02/09/25 07:00 98.2 F 83 19 154/96 02/09/25 01:58 98.5 F 81 18 153/71 02/08/25 21:30 97.9 F 78 19 168/80 02/08/25 21:09 98.1 F 71 16 166/75 02/08/25 18:00 98.5 F 66 18 149/65 02/08/25 17:00 62 16 149/66 02/08/25 16:20 61 18 147/68 02/08/25 15:52 81 18 106/51 02/08/25 14:09 55 L 02/08/25 14:00 55 L 16 164/81 02/08/25 12:30 60 16 148/70 02/08/25 12:18 97.9 F 58 L 20 126/62 Pulse Ox 02/09/25 07:00 94 L 02/09/25 01:58 96 02/08/25 21:30 95 02/08/25 21:09 95 02/08/25 18:00 92 L 02/08/25 17:00 94 L 02/08/25 16:20 95 02/08/25 15:52 95 02/08/25 14:09 02/08/25 14:00 95 02/08/25 12:30 94 L 02/08/25 12:18 90 L Intake and Output 02/08/25 02/09/25 02/09/25 22:59 06:59 14:59 Intake Total 540 Output Total 300 200 Balance 240 -200 Intake: Oral 540 Output: Urine 300 200 Other: Voiding Method Toilet Toilet Urinal Urinal # Voids 3 Weight 111.13 kg 115 kg Results 02/09/25 05:00 02/09/25 05:00 Cardiac Enzymes 02/08/25 02/08/25 02/08/25 Range/Units 12:51 12:51 16:25 AST 20 (17-59) U/L Troponin I 0.034 0.033 (0.000-0.034) ng/mL 02/08/25 Range/Units 19:31 AST (17-59) U/L Troponin I 0.033 (0.000-0.034) ng/mL Coagulation 02/08/25 Range/Units 12:51 PT 11.3 (10.0-12.5) sec APTT 25.1 (22.0-30.0) sec CBC 02/08/25 02/09/25 Range/Units 12:51 05:00 WBC 8.11 8.49 (4.50-10.00) 10*3/uL RBC 2.99 L 3.05 L (4.40-5.60) 10*6/uL Hgb 8.9 L 8.9 L (13.0-17.0) g/dL Hct 27.0 L 28.2 L (39.6-50.0) % Plt Count 235 240 (140-440) 10*3/uL Comprehensive Metabolic Panel 02/08/25 02/09/25 Range/Units 12:51 05:00 Sodium 136 L 138 (137-145) mmol/L Potassium 4.2 4.0 (3.5-5.1) mmol/L Chloride 103 100 (98-107) mmol/L Carbon Dioxide 22 23.8 (22-30) mmol/L BUN 47 H 44.6 H (9-20) mg/dL Creatinine 3.33 H 3.5 H (0.66-1.25) mg/dL Glucose 172 H 174 H (74-99) mg/dL Calcium 8.6 8.5 L (8.4-10.2) mg/dL AST 20 (17-59) U/L ALT 17 (4-49) U/L Alkaline Phosphatase 74 (38-126) U/L Total Protein 6.0 L (6.3-8.2) g/dL Albumin 3.6 (3.5-5.0) g/dL Current Medications Generic Name Dose Route Start Last Admin Trade Name Freq PRN Reason Stop Dose Admin Aspirin 81 mg 02/09/25 09:00 02/09/25 09:14 Aspirin 81 Mg PO 81 mg DAILY MULUGETA Administration Atorvastatin Calcium 20 mg 02/09/25 09:00 02/09/25 09:13 Atorvastatin 20 Mg Tab PO 20 mg DAILY MULUGETA Administration Bupropion HCl 150 mg 02/09/25 09:00 02/09/25 09:23 Bupropion Sr 150 Mg Tablet.Er PO Not Given DAILY MULUGETA Calcitriol 0.25 mcg 02/09/25 09:00 02/09/25 09:14 Calcitriol 0.25 Mcg Cap PO 0.25 mcg SUWE MULUGETA Administration Calcium Carbonate/Glycine 500 mg 02/09/25 09:00 02/09/25 09:23 Calcium Carbonate 500 Mg Chewable PO Not Given DAILY MULUGETA Carvedilol 3.125 mg 02/09/25 08:30 02/09/25 09:23 Carvedilol 3.125 Mg Tab PO 3.125 mg BID-W/MEALS MULUGETA Administration Cholecalciferol 50 mcg 02/09/25 09:00 02/09/25 09:13 Cholecalciferol 25 Mcg (1000 Iu) Tablet PO 50 mcg DAILY MULUGETA Administration Clopidogrel Bisulfate 75 mg 02/09/25 09:00 02/09/25 09:13 Clopidogrel 75 Mg Tab PO 75 mg DAILY MULUGETA Administration Doxazosin Mesylate 2 mg 02/08/25 21:00 02/08/25 22:51 Doxazosin 2 Mg Tab PO 2 mg HS MULUGETA Administration Fluoxetine HCl 40 mg 02/09/25 09:00 02/09/25 09:13 Fluoxetine Hcl 20 Mg Cap PO 40 mg DAILY MULUGETA Administration Furosemide 40 mg 02/09/25 09:00 02/09/25 09:15 Furosemide 10 Mg/Ml 4 Ml Vial IV 40 mg Q12HR MULUGETA Administration Hydralazine HCl 100 mg 02/08/25 22:00 02/09/25 09:14 Hydralazine Hcl 50 Mg Tab PO 100 mg QID MULUGETA Administration Insulin Glargine 20 unit 02/08/25 21:00 02/08/25 22:51 Insulin Glargine (Lantus) 100 Unit/Ml Syr SQ 20 unit HS MULUGETA Administration Isosorbide Mononitrate 30 mg 02/09/25 09:00 02/09/25 09:14 Isosorbide Mononitrate Er 30 Mg Tab.Er.24h PO 30 mg DAILY MULUGETA Administration Multivitamins 1 each 02/09/25 09:00 02/09/25 09:14 Multivitamins, Thera 1 Each Tab PO 1 each DAILY MULUGETA Administration Sodium Bicarbonate 650 mg 02/08/25 21:00 02/09/25 09:14 Sodium Bicarbonate Tab 650 Mg Tab PO 650 mg BID MULUGETA Administration Intake and Output 02/08/25 02/09/25 02/09/25 22:59 06:59 14:59 Intake Total 540 Output Total 300 200 Balance 240 -200 Intake: Oral 540 Output: Urine 300 200 Other: Voiding Method Toilet Toilet Urinal Urinal # Voids 3 Weight 111.13 kg 115 kg 02/09/25 05:00 02/09/25 05:00
[2025-02-09 11:10] VITALS: BMI 34.4
--- NOTE | 2025-02-09 12:44 | CA ---
Transthoracic Echo Report Name: Liban Merino Age: 74 Gender: M : 1950 Exam Date: 02/09/2025 07:35 Exam Location: [facility] Ht (in): 72 Wt (lb): 245 Ordering Physician: Tiffanie Boyd MD Attending/Referring Phys: Intervention Analyst Brandon Garcia RDCS Procedure CPT: Indications: chf Cardiac Hx: Technical Quality: Fair Contrast 1: Total Dose (mL): Contrast 2: Total Dose (mL): MEASUREMENTS (Male / Female) Normal Values 2D ECHO LV Diastolic Diameter PLAX 5.0 cm 4.2 - 5.9 / 3.9 - 5.3 cm LV Systolic Diameter PLAX 4.9 cm IVS Diastolic Thickness 1.2 cm 0.6 - 1.0 / 0.6 - 0.9 cm LVPW Diastolic Thickness 1.1 cm 0.6 - 1.0 / 0.6 - 0.9 cm LV Relative Wall Thickness 0.5 RV Internal Dim ED PLAX 3.2 cm LVOT Diameter 2.1 cm Aortic Root Diameter 2.7 cm LA Systolic Diameter LX 4.7 cm 3.0 - 4.0 / 2.7 - 3.8 cm LV Diastolic Volume MOD BP 107.4 cm??? 67 - 155 / 56 - 104 cm??? LV Systolic Volume MOD BP 40.0 cm??? 22 - 58 / 19 - 49 cm??? LV Ejection Fraction MOD BP 62.8 % >= 55 % LV Cardiac Index MOD BP 2153.3 cm???/min???m??? LV Diastolic Volume MOD 4C 147.8 cm??? LV Systolic Volume MOD 4C 48.8 cm??? LV Ejection Fraction MOD 4C 67.0 % LV Cardiac Index MOD 4C 3164.8 cm???/min???m??? LV Diastolic Length 4C 8.2 cm LV Systolic Length 4C 7.3 cm LV Diastolic Volume MOD 2C 75.2 cm??? LV Systolic Volume MOD 2C 30.8 cm??? LV Ejection Fraction MOD 2C 59.1 % LV Cardiac Index MOD 2C 1418.9 cm???/min???m??? LV Diastolic Length 2C 7.8 cm LV Systolic Length 2C 6.8 cm M-MODE Aortic Root Diameter MM 2.8 cm LA Systolic Diameter MM 4.8 cm LA Ao Ratio MM 1.7 AV Cusp Separation MM 1.5 cm DOPPLER AV Peak Velocity 116.1 cm/s AV Peak Gradient 5.4 mmHg AV Mean Velocity 85.2 cm/s AV Mean Gradient 3.2 mmHg AV Velocity Time Integral 24.7 cm LVOT Peak Velocity 72.8 cm/s LVOT Peak Gradient 2.1 mmHg LVOT Velocity Time Integral 14.3 cm LVOT Stroke Volume 51.2 cm??? LVOT Stroke Volume Index 22.1 ml/m??? LVOT Cardiac Index 1637.5 cm???/min???m??? AV Area Cont Eq vti 2.1 cm??? AV Area Cont Eq pk 2.2 cm??? MV Peak Velocity 108.1 cm/s MV Peak Gradient 4.7 mmHg MV Mean Velocity 72.3 cm/s MV Mean Gradient 2.3 mmHg MV Velocity Time Integral 32.7 cm MV Area PHT 5.5 cm??? Mitral E Point Velocity 122.6 cm/s Mitral A Point Velocity 71.0 cm/s Mitral E to A Ratio 1.7 MV Deceleration Time 139.0 ms TR Peak Velocity 302.2 cm/s TR Peak Gradient 36.5 mmHg FINDINGS Left Ventricle Left ventricular ejection fraction is estimated at 50-55 %. Left ventricular systolic function borderline normal.left ventricular cavity size normal. Mildly increased left ventricular wall thickness. Right Ventricle Normal right ventricular size. Right Atrium Normal right atrial size. No right atrial thrombus or mass seen. Left Atrium Normal left atrial size. No left atrial thrombus or mass present. Mitral Valve No mitral stenosis. Mild mitral regurgitation. Mild mitral annular calcification. Aortic Valve Trileaflet aortic valve. No aortic stenosis. No aortic regurgitation. Aortic valve sclerosis. Tricuspid Valve No tricuspid stenosis. Mild tricuspid regurgitation. Pulmonic Valve Pulmonic valve not well visualized. No pulmonic stenosis. Trace pulmonic regurgitation. Pericardium No pericardial or pleural effusion. Echo free space anterior to the right ventricle likely represents a fat pad. Aorta Normal size aortic root and proximal ascending aorta. CONCLUSIONS 1. Left ventricular systolic function borderline normal 2. Mild mitral and tricuspid regurgitation Technically difficult study. Previewed by: Dr. Modesta Locke MD (Electronically Signed) Final Date: 09 February 2025 12:43
[2025-02-09] MEDS: HEPARIN SODIUM,PORCINE 5,000 UNIT/ML 1 ML VIAL SQ SCH (12:53)
[2025-02-09 13:01] LABS: Glucose,Whole Blood 169 mg/dL (70-110)
[2025-02-09 15:34] LABS: Ferritin 351.0 ng/mL (22.0-322.0); Iron 24.0 UG/DL (65-175); Total Iron Binding Capacity 242.0 UG/DL (228-460)
[2025-02-09 17:47] LABS: Glucose,Whole Blood 192 mg/dL (70-110)
[2025-02-09 20:34] LABS: Glucose,Whole Blood 203 mg/dL (70-110)
--- NOTE | 2025-02-10 05:18 | PN ---
PROGRESS NOTE DATE OF SERVICE: 02/09/2025 SUBJECTIVE: This 74-year-old gentleman admitted with CHF acute exacerbation, also had some anemia. Chest x-ray shows some CHF, multiple consultants following the patient closely including Cardiology, Nephrology. Creatinine is elevated at 3.5. PAST MEDICAL HISTORY: Reviewed. REVIEW OF SYSTEMS: Fourteen-point review is negative except as mentioned earlier. CURRENT MEDICATIONS: Reviewed. PHYSICAL EXAMINATION: VITAL SIGNS: Pulse is 83, blood pressure 151/90, respirations 19. HEENT: Conjunctivae normal. NECK: No JVD. CARDIOVASCULAR: S1, S2. RESPIRATIONS: Few crackles. ABDOMEN: Soft. LEGS: Minimal edema. LABORATORY DATA: Reviewed. ASSESSMENT: 1. Congestive heart failure, acute exacerbation. Ejection fraction unknown. 2. Jfjig-ce-vspiulz renal failure with chronic kidney disease, stage 2. 3. History of cerebrovascular accident, transient ischemic attack. 4. Diabetes mellitus, type 2. 5. Gastroesophageal reflux disease. 6. Hypertension. 7. Hyperlipidemia. 8. Sleep apnea. 9. Multiple complex medical issues. RECOMMENDATIONS AND DISCUSSION: I recommend to continue current management and symptomatic treatment. We will monitor creatinine closely. The pulse ox is 94% on room air. I will repeat the x-ray. The patient is on small dose of cautious diuresis at this time, bronchodilators, rest of medications will be continued. Overall prognosis remains extremely guarded because of multiple complex medical issues. Further recommendations to follow. DVT prophylaxis. LIGIA / TATI: [id number] /
[2025-02-10 05:59] LABS: Glucose,Whole Blood 134 mg/dL (70-110)
[2025-02-10] MEDS: PANTOPRAZOLE 40 MG TABLET PO SCH (06:43)
--- NOTE | 2025-02-10 09:38 | XR ---
EXAMINATION TYPE: XR chest 1V portable DATE OF EXAM: 02/10/2025 9:32 AM COMPARISON: Chest radiographs from 02/08/2025 TECHNIQUE: XR chest 1V portable Portable AP radiograph of the chest. CLINICAL INDICATION:Male, 74 years old with history of SOB; FINDINGS: Lungs/Pleura: There is no evidence of pleural effusion, focal consolidation, or pneumothorax. Chroni c elevation of the right hemidiaphragm. Pulmonary vascularity: Central pulmonary vascular congestion. Heart/mediastinum: Cardiomediastinal silhouette is enlarged and stable. Atherosclerotic calcificatio ns are seen in the aorta. Musculoskeletal: No acute osseous pathology. IMPRESSION: Cardiomegaly and central pulmonary vascular congestion. Correlate with BNP for possible congestive he art failure. No significant change from prior exam. [facility], , 02/10/2025 9:35 AM
--- NOTE | 2025-02-10 10:28 | P.PN ---
Subjective Patient is seen in follow-up for chronic kidney disease. Morning labs pending. On IV Lasix. Nonoliguric. Denies chest pain or shortness of breath. Currently on 2 L nasal cannula. Vital signs are stable. General: No acute distress. HEENT: Head exam is unremarkable. On nasal cannula. LUNGS: No audible rhonchi or wheezes. HEART: Rate and Rhythm are regular. ABDOMEN: Non-tender. EXTREMITITES: No edema. Objective - Vital Signs Vital signs: Vital Signs Temp 98.2 F 02/10/25 06:56 Pulse 78 02/10/25 06:56 Resp 19 02/10/25 06:56 BP 170/68 02/10/25 06:56 Pulse Ox 94 L 02/10/25 06:56 FiO2 Intake & Output 02/09/25 02/10/25 02/10/25 18:59 06:59 18:59 Intake Total 200 180 240 Output Total 2200 1700 100 Balance -2000 -1520 140 Weight 115 kg 109.5 kg Intake: Oral 200 180 240 Output: Urine 2200 1700 100 Other: Voiding Method Toilet Toilet Toilet Urinal Urinal Urinal - Labs CBC & Chem 7: 02/09/25 05:00 02/09/25 05:00 Labs: Abnormal Lab Results - Last 24 Hours (Table) 02/09/25 02/09/25 02/09/25 Range/Units 05:00 13:00 17:46 POC Glucose (mg/dL) 169 H 192 H (70-110) mg/dL Iron 24 L (65-175) UG/DL % Saturation 9.92 L (15.00-50.00) Transferrin 173.0 L (204.0-354.0) mg/dL Ferritin 351.0 H (22.0-322.0) ng/mL 02/09/25 02/10/25 Range/Units 20:32 05:58 POC Glucose (mg/dL) 203 H 134 H (70-110) mg/dL Iron (65-175) UG/DL % Saturation (15.00-50.00) Transferrin (204.0-354.0) mg/dL Ferritin (22.0-322.0) ng/mL Assessment and Plan Plan: Assessment: 1. 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 2. Dyspnea secondary to fluid overload. Improved. 3. Acute on chronic diastolic CHF. 4. Volume overload. Better with diuresis. 5. Diabetes mellitus. 6. Anemia of chronic kidney disease. Iron deficiency noted. 7. Chronic kidney disease mineral bone disease maintained on calcitriol. 8. Hypertension with chronic kidney disease. Plan: Maintain IV Lasix for now as chest x-ray suggestive of volume overload. Low-salt diet and 1500 cc fluid restriction. Will consider SGLT2 inhibitor if GFR remains stable. Add IV iron. Avoid nephrotoxins. Patient plans to do peritoneal dialysis when renal replacement therapy is indicated.
[2025-02-10] MEDS ORDERED: SODIUM FERRIC GLUCONAT-SUCROSE 125 MG in SODIUM CHLORIDE 0.9% 100 ML IVPB SCH (10:30)
[2025-02-10] MEDS: SODIUM FERRIC GLUCONAT-SUCROSE 125 MG in SODIUM CHLORIDE 0.9% 100 ML IVPB SCH (11:00)
[2025-02-10 11:01] LABS: Basophils # (A) 0.09 X 10*3/uL (0.00-0.10); Basophils % (A) 1.2 %; Eosinophils # (A) 0.71 X 10*3/uL (0.04-0.35); Eosinophils % (A) 9.1 %; HCT 28.4 % (39.6-50.0); HGB 9.0 g/dL (13.0-17.0); Immature Grans, Automated 0.40 %; Lymphocytes # (A) 0.76 X 10*3/uL (0.90-5.00); Lymphocytes % (A) 9.7 %; MCH 29.1 pg (27.0-32.0); MCHC 31.7 g/dL (32.0-37.0); MCV 91.9 FL (80.0-97.0); Monocytes # (A) 0.73 X 10*3/uL (0.20-1.00); Monocytes % (A) 9.3 %; NRBC Per 100 WBC 0 X 10*3/uL (0.00-0.01); Neutrophils # (A) 5.49 X 10*3/uL (1.80-7.70); Neutrophils % (A) 70.3 %; Platelet Count 250 X 10*3/uL (140-440); RBC 3.09 X 10*6/uL (4.40-5.60); RDW 13.5 % (11.5-14.5); WBC 7.81 X 10*3/uL (4.50-10.00)
[2025-02-10 11:24] LABS: Anion Gap 14.30 mmol/L (4.00-12.00); BUN/Creat Ratio 12.59 Ratio (12.00-20.00); Blood Urea Nitrogen 42.8 mg/dL (9.0-27.0); Calcium 8.5 mg/dL (8.7-10.3); Carbon Dioxide 24.7 mmol/L (21.6-31.8); Chloride 100 mmol/L (96-109); Glucose 119 mg/dL (70-110); Magnesium 2.2 mg/dL (1.5-2.4); Potassium 3.6 mmol/L (3.5-5.5); Sodium 139 mmol/L (135-145)
[2025-02-10 12:04] LABS: Glucose,Whole Blood 127 mg/dL (70-110)
--- NOTE | 2025-02-10 13:03 | P.PN ---
Subjective HISTORY OF PRESENT ILLNESS: This is a 74-year-old male with a past medical history significant for coronary artery disease with previous PCI, chronic kidney disease, hypertension, hyperlipidemia, cardiomyopathy, CVA, and obesity. Patient follows in the office with Dr. Rosario. We have been asked to see the patient in consultation for congestive heart failure. Patient examined at the bedside. Patient presented to the hospital with a chief complaint of shortness of breath. Patient states he has been feeling short of breath for the past couple days. He also reports having a weight gain of about 10 pounds. He denies any chest pain or pressure. He states that he does watch his salt intake at home and has been compliant with a low-sodium diet. Patient did receive a dose of IV Lasix in the emergency room. He states he is feeling better this morning. DIAGNOSTICS: - EKG reveals sinus bradycardia with first-degree AV block. Right bundle branch block.. - Chest xray cardiomegaly and central pulmonary venous congestion.. - Laboratory data: WBC 8.49. Hemoglobin 8.9. Platelet count 240. Sodium 138. Potassium 4.0. BUN 44. Creatinine 3.5. Troponin negative x 3. proBNP 15,000. - Current home cardiac medications include hydralazine 100 mg 4 times a day, rosuvastatin 10 mg daily, Lasix 40 mg twice a day, Plavix 75 mg daily, cassandra nopril 5 mg daily, nifedipine 60 mg daily, Imdur 30 mg daily, aspirin 81 mg daily. - Most recent echocardiogram obtained in December 2023 revealing EF 47%, lateral wall hypokinesia, aortic valve sclerosis, no significant pulm hypertension - Cardiac catheterization history: February 2024 with PTCA and stenting of proximal LAD and PTCA and stenting of high obtuse marginal branch of circumflex which was a chronic total occlusion 02/10/2025 Patient examined this morning at bedside. Patient currently denies chest pain or pressure. He denies shortness of breath. He remains on IV Lasix. Creatinine today is stable at 3.4. Echocardiogram completed revealing ejection fraction 50 to 55%, mild MR, mild TR PHYSICAL EXAM: VITAL SIGNS: Reviewed. GENERAL: Well-developed in no acute distress. HEENT: Head is normocephalic. Pupils are equal, round. Sclerae anicteric. Mucous membranes of the mouth are moist. Neck supple. No JVD or thyromegaly LUNGS: Respirations even and unlabored. Lungs essentially clear to auscultation bilaterally. HEART: Regular rate and rhythm. S1 and S2 heard. Systolic murmur noted. ABDOMEN: Soft. Nondistended. Nontender. EXTREMITIES: Normal range of motion. No clubbing or cyanosis. Peripheral pulses intact. 1+ bilateral lower extremity edema NEUROLOGIC: Awake and alert. Oriented x 3. ASSESSMENT: Shortness of breath Acute on chronic heart failure with preserved EF, 50 to 55% Chronic kidney disease Coronary artery disease with previous PCI Hypertension Hyperlipidemia Anemia of chronic disease secondary to CKD Mild ischemic cardiomyopathy with improved EF was 45% now 50 to 55% History of CVA, 2018 Obesity: BMI 34.4 PLAN: Discontinue IV Lasix. Begin oral Lasix 40 mg twice a day Increase carvedilol to 6.25 mg twice a day Add Farxiga Continue to monitor kidney function. Repeat in a.m. Further recommendations pending patient course Nurse practitioner note has been reviewed by physician. Signing provider agrees with the documented findings, assessment, and plan of care documented by IN[employer] TUBE CUTTER as a scribe. Objective - Vital Signs Vital signs: Vital Signs Temp 98.2 F 02/10/25 06:56 Pulse 78 02/10/25 06:56 Resp 18 02/10/25 09:20 BP 170/68 02/10/25 06:56 Pulse Ox 97 02/10/25 09:20 FiO2 Intake & Output 02/09/25 02/10/25 02/10/25 18:59 06:59 18:59 Intake Total 200 180 240 Output Total 2200 1700 100 Balance -2000 -1520 140 Weight 115 kg 109.5 kg Intake: Oral 200 180 240 Output: Urine 2200 1700 100 Other: Voiding Method Toilet Toilet Toilet Urinal Urinal Urinal - Labs CBC & Chem 7: 02/10/25 06:14 02/10/25 06:14 Labs: Abnormal Lab Results - Last 24 Hours (Table) 02/09/25 02/09/25 02/09/25 Range/Units 05:00 13:00 17:46 RBC (4.40-5.60) X 10*6/uL Hgb (13.0-17.0) g/dL Hct (39.6-50.0) % MCHC (32.0-37.0) g/dL Lymphocytes # (0.90-5.00) X 10*3/uL Eosinophils # (0.04-0.35) X 10*3/uL Anion Gap (4.00-12.00) mmol/L BUN (9.0-27.0) mg/dL Creatinine (0.6-1.5) mg/dL Est GFR (CKD-EPI) (>=60) Glucose (70-110) mg/dL POC Glucose (mg/dL) 169 H 192 H (70-110) mg/dL Calcium (8.7-10.3) mg/dL Iron 24 L (65-175) UG/DL % Saturation 9.92 L (15.00-50.00) Transferrin 173.0 L (204.0-354.0) mg/dL Ferritin 351.0 H (22.0-322.0) ng/mL 02/09/25 02/10/25 02/10/25 Range/Units 20:32 05:58 06:14 RBC (4.40-5.60) X 10*6/uL Hgb (13.0-17.0) g/dL Hct (39.6-50.0) % MCHC (32.0-37.0) g/dL Lymphocytes # (0.90-5.00) X 10*3/uL Eosinophils # (0.04-0.35) X 10*3/uL Anion Gap 14.30 H (4.00-12.00) mmol/L BUN 42.8 H (9.0-27.0) mg/dL Creatinine 3.4 H (0.6-1.5) mg/dL Est GFR (CKD-EPI) 18 L (>=60) Glucose 119 H (70-110) mg/dL POC Glucose (mg/dL) 203 H 134 H (70-110) mg/dL Calcium 8.5 L (8.7-10.3) mg/dL Iron (65-175) UG/DL % Saturation (15.00-50.00) Transferrin (204.0-354.0) mg/dL Ferritin (22.0-322.0) ng/mL 02/10/25 02/10/25 Range/Units 06:14 12:02 RBC 3.09 L (4.40-5.60) X 10*6/uL Hgb 9.0 L (13.0-17.0) g/dL Hct 28.4 L (39.6-50.0) % MCHC 31.7 L (32.0-37.0) g/dL Lymphocytes # 0.76 L (0.90-5.00) X 10*3/uL Eosinophils # 0.71 H (0.04-0.35) X 10*3/uL Anion Gap (4.00-12.00) mmol/L BUN (9.0-27.0) mg/dL Creatinine (0.6-1.5) mg/dL Est GFR (CKD-EPI) (>=60) Glucose (70-110) mg/dL POC Glucose (mg/dL) 127 H (70-110) mg/dL Calcium (8.7-10.3) mg/dL Iron (65-175) UG/DL % Saturation (15.00-50.00) Transferrin (204.0-354.0) mg/dL Ferritin (22.0-322.0) ng/mL
[2025-02-10] MEDS: FUROSEMIDE 40 MG TAB PO SCH (14:52)
[2025-02-10 15:15] LABS: NT-Pro-B-Type Natriuretic Pept 30409 pg/mL (0-125)
[2025-02-10 17:34] LABS: Glucose,Whole Blood 181 mg/dL (70-110)
[2025-02-10] MEDS: POTASSIUM CHLORIDE ER 20 MEQ TAB.ER PO SCH (17:35)
[2025-02-10 20:00] LABS: Glucose,Whole Blood 279 mg/dL (70-110)
[2025-02-10] MEDS ORDERED: DEXTROSE 50% SYRINGE 50 ML IVP PRN ×2 (20:52)
[2025-02-10] MEDS: INSULIN LISPRO (HumaLOG) 100 UNIT/ML 10 mL VL SQ SCH (21:21)
--- NOTE | 2025-02-11 00:15 | PN ---
PROGRESS NOTE DATE OF SERVICE: 02/10/2025 SUBJECTIVE: This is a 74-year-old gentleman admitted with CHF acute exacerbation. Also some anemia. No chest pain. No palpitation. OBJECTIVE: VITAL SIGNS: On exam, pulse is 73, blood pressure 115/64, and respirations 20. HEENT: Conjunctivae normal. NECK: No JVD. CARDIOVASCULAR: S1, S2. RESPIRATIONS: Few scattered rhonchi. ABDOMEN: Soft. LEGS: No edema. NERVOUS SYSTEM: Nonfocal. LABS: Reviewed. Creatinine is 3.4. The chest x-ray reviewed and showed some CHF. ASSESSMENT: 1. CHF acute exacerbation with the acute on chronic diastolic dysfunction. 2. Acute on chronic renal failure, with chronic kidney, stage III. 3. History of CVA, TIA. 4. Diabetes mellitus type 2. 5. GERD. 6. Hypertension. 7. Hyperlipidemia. 8. Sleep apnea. 9. Multiple complex medical issues. RECOMMENDATIONS: Recommend to continue current management and symptomatic treatment. Otherwise, repeat labs. Closely follow with the multiple consultants. As mentioned earlier, creatinine is stable at 3.4. Further recommendations [place] [address]. Prognosis guarded. MMODL / IJN: [id number] /
[2025-02-11 06:04] LABS: Glucose,Whole Blood 100 mg/dL (70-110)
[2025-02-11] MEDS: DAPAGLIFLOZIN PROPANEDIOL 5 MG TABLET PO SCH (08:11)
[2025-02-11] MEDS: FUROSEMIDE 10 MG/ML 4 ML VIAL IV STA (08:12)
--- NOTE | 2025-02-11 08:16 | P.PN ---
Subjective Patient is seen in follow-up for chronic kidney disease. Renal function stable as of yesterday. Transition to oral Lasix yesterday. Still on 2 L nasal cannula. Denies chest pain or shortness of breath. Admits to good urine output. Vital signs are stable. General: No acute distress. HEENT: Head exam is unremarkable. On nasal cannula. LUNGS: No audible rhonchi or wheezes. HEART: Rate and Rhythm are regular. ABDOMEN: Non-tender. EXTREMITITES: No edema. Objective - Vital Signs Vital signs: Vital Signs Temp 97.8 F 02/11/25 08:00 Pulse 65 02/11/25 08:00 Resp 16 02/11/25 08:00 BP 176/72 02/11/25 08:00 Pulse Ox 99 02/11/25 08:00 FiO2 Intake & Output 02/10/25 02/11/25 02/11/25 18:59 06:59 18:59 Intake Total 1080 Output Total 1500 1000 Balance -420 -1000 Weight 108.5 kg Intake: Oral 1080 Output: Urine 1500 1000 Other: Voiding Method Toilet Toilet Urinal Urinal - Labs CBC & Chem 7: 02/10/25 06:14 02/10/25 06:14 Labs: Abnormal Lab Results - Last 24 Hours (Table) 02/10/25 02/10/25 02/10/25 Range/Units 06:14 06:14 12:02 RBC 3.09 L (4.40-5.60) X 10*6/uL Hgb 9.0 L (13.0-17.0) g/dL Hct 28.4 L (39.6-50.0) % MCHC 31.7 L (32.0-37.0) g/dL Lymphocytes # 0.76 L (0.90-5.00) X 10*3/uL Eosinophils # 0.71 H (0.04-0.35) X 10*3/uL Anion Gap 14.30 H (4.00-12.00) mmol/L BUN 42.8 H (9.0-27.0) mg/dL Creatinine 3.4 H (0.6-1.5) mg/dL Est GFR (CKD-EPI) 18 L (>=60) Glucose 119 H (70-110) mg/dL POC Glucose (mg/dL) 127 H (70-110) mg/dL Calcium 8.5 L (8.7-10.3) mg/dL NT-Pro-B Natriuret Pep 28821 H (0-125) pg/mL 02/10/25 02/10/25 Range/Units 17:32 19:58 RBC (4.40-5.60) X 10*6/uL Hgb (13.0-17.0) g/dL Hct (39.6-50.0) % MCHC (32.0-37.0) g/dL Lymphocytes # (0.90-5.00) X 10*3/uL Eosinophils # (0.04-0.35) X 10*3/uL Anion Gap (4.00-12.00) mmol/L BUN (9.0-27.0) mg/dL Creatinine (0.6-1.5) mg/dL Est GFR (CKD-EPI) (>=60) Glucose (70-110) mg/dL POC Glucose (mg/dL) 181 H 279 H (70-110) mg/dL Calcium (8.7-10.3) mg/dL NT-Pro-B Natriuret Pep (0-125) pg/mL Assessment and Plan Plan: Assessment: 1. 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 2. Dyspnea secondary to fluid overload. Improved. 3. Acute on chronic diastolic CHF. 4. Volume overload. Better with diuresis. 5. Diabetes mellitus. 6. Anemia of chronic kidney disease. Iron deficiency noted. 7. Chronic kidney disease mineral bone disease maintained on calcitriol. 8. Hypertension with chronic kidney disease. Plan: Maintain Lasix. Will give 40 mg IV rather than oral this morning. Low-salt diet and 1500 cc fluid restriction. Maintain SGLT2 inhibitor. Maintain IV iron. Avoid nephrotoxins. Patient plans to do peritoneal dialysis when renal replacement therapy is indicated. Repeat BMP and magnesium level 2 to 3 days postdischarge. Follow-up outpatient 1 week postdischarge.
--- NOTE | 2025-02-11 10:16 | P.PN ---
Subjective Progress Note Date: 02/11/25 This is a 74-year-old male with a past medical history significant for coronary artery disease with previous PCI, chronic kidney disease, hypertension, hyperlipidemia, cardiomyopathy, CVA, and obesity. Patient follows in the office with Dr. Rosario. We have been asked to see the patient in consultation for c ongestive heart failure. Patient examined at the bedside. Patient presented to the hospital with a chief complaint of shortness of breath. Patient states he has been feeling short of breath for the past couple days. He also reports having a weight gain of about 10 pounds. He denies any chest pain or pressure. He states that he does watch his salt intake at home and has been compliant with a low-sodium diet. Patient did receive a dose of IV Lasix in the emergency room. He states he is feeling better this morning. DIAGNOSTICS: - EKG reveals sinus bradycardia with first-degree AV block. Right bundle branch block.. - Chest xray cardiomegaly and central pulmonary venous congestion.. - Laboratory data: WBC 8.49. Hemoglobin 8.9. Platelet count 240. Sodium 138. Potassium 4.0. BUN 44. Creatinine 3.5. Troponin negative x 3. proBNP 15,000. - Current home cardiac medications include hydralazine 100 mg 4 times a day, rosuvastatin 10 mg daily, Lasix 40 mg twice a day, Plavix 75 mg daily, lisinopril 5 mg daily, nifedipine 60 mg daily, Imdur 30 mg daily, aspirin 81 mg daily. - Most recent echocardiogram obtained in December 2023 revealing EF 47%, lateral wall hypokinesia, aortic valve sclerosis, no significant pulm hypertension - Cardiac catheterization history: February 2024 with PTCA and stenting of proximal LAD and PTCA and stenting of high obtuse marginal branch of circumflex which was a chronic total occlusion 02/11/2025 The patient was seen and examined this morning at the bedside. He is overall feeling fairly well. Denies any complaints of chest pain or pressure his domitila thing is stable. Continues to be followed by nephrology. Labs are pending. PHYSICAL EXAM: VITAL SIGNS: Reviewed. GENERAL: Well-developed in no acute distress. HEENT: Head is normocephalic. Pupils are equal, round. Sclerae anicteric. Mucous membranes of the mouth are moist. Neck supple. No JVD or thyromegaly LUNGS: Respirations even and unlabored. Lungs essentially clear to auscultation bilaterally. HEART: Regular rate and rhythm. S1 and S2 heard. Systolic murmur noted. ABDOMEN: Soft. Nondistended. Nontender. EXTREMITIES: Normal range of motion. No clubbing or cyanosis. Peripheral puls es intact. 1+ bilateral lower extremity edema NEUROLOGIC: Awake and alert. Oriented x 3. ASSESSMENT: Shortness of breath Acute on chronic heart failure with preserved EF, 50 to 55% Chronic kidney disease Coronary artery disease with previous PCI Hypertension Hyperlipidemia Anemia of chronic disease secondary to CKD Mild ischemic cardiomyopathy with improved EF was 45% now 50 to 55% History of CVA, 2018 Obesity: BMI 34.4 PLAN: From cardiology's perspective medications were reviewed and we will continue the same. From our standpoint if renal function is stable patient may be discharged home and he will follow-up in the office with Dr. Slaughter. DEPUTY FIRE MARSHAL note has been reviewed, I agree with a documented findings and plan of care. Patient was seen and examined. Objective - Vital Signs Vital signs: Vital Signs Temp 97.8 F 02/11/25 08:00 Pulse 81 02/11/25 08:00 Resp 16 02/11/25 08:00 BP 176/72 02/11/25 08:00 Pulse Ox 99 02/11/25 08:00 FiO2 Intake & Output 02/10/25 02/11/25 02/11/25 18:59 06:59 18:59 Intake Total 1080 Output Total 1500 1000 Balance -420 -1000 Weight 108.5 kg Intake: Oral 1080 Output: Urine 1500 1000 Other: Voiding Method Toilet Toilet Toilet Urinal Urinal Urinal - Labs CBC & Chem 7: 02/10/25 06:14 02/10/25 06:14 Labs: Abnormal Lab Results - Last 24 Hours (Table) 02/10/25 02/10/25 02/10/25 Range/Units 06:14 06:14 12:02 RBC 3.09 L (4.40-5.60) X 10*6/uL Hgb 9.0 L (13.0-17.0) g/dL Hct 28.4 L (39.6-50.0) % MCHC 31.7 L (32.0-37.0) g/dL Lymphocytes # 0.76 L (0.90-5.00) X 10*3/uL Eosinophils # 0.71 H (0.04-0.35) X 10*3/uL Anion Gap 14.30 H (4.00-12.00) mmol/L BUN 42.8 H (9.0-27.0) mg/dL Creatinine 3.4 H (0.6-1.5) mg/dL Est GFR (CKD-EPI) 18 L (>=60) Glucose 119 H (70-110) mg/dL POC Glucose (mg/dL) 127 H (70-110) mg/dL Calcium 8.5 L (8.7-10.3) mg/dL NT-Pro-B Natriuret Pep [id number] H (0-125) pg/mL 02/10/25 02/10/25 Range/Units 17:32 19:58 RBC (4.40-5.60) X 10*6/uL Hgb (13.0-17.0) g/dL Hct (39.6-50.0) % MCHC (32.0-37.0) g/dL Lymphocytes # (0.90-5.00) X 10*3/uL Eosinophils # (0.04-0.35) X 10*3/uL Anion Gap (4.00-12.00) mmol/L BUN (9.0-27.0) mg/dL Creatinine (0.6-1.5) mg/dL Est GFR (CKD-EPI) (>=60) Glucose (70-110) mg/dL POC Glucose (mg/dL) 181 H 279 H (70-110) mg/dL Calcium (8.7-10.3) mg/dL NT-Pro-B Natriuret Pep (0-125) pg/mL
[2025-02-11 11:26] LABS: Anion Gap 14.10 mmol/L (4.00-12.00); BUN/Creat Ratio 13.91 Ratio (12.00-20.00); Blood Urea Nitrogen 45.9 mg/dL (9.0-27.0); Calcium 8.5 mg/dL (8.7-10.3); Carbon Dioxide 25.9 mmol/L (21.6-31.8); Chloride 101 mmol/L (96-109); Glucose 87 mg/dL (70-110); Magnesium 2.2 mg/dL (1.5-2.4); Potassium 3.7 mmol/L (3.5-5.5); Sodium 141 mmol/L (135-145)
[2025-02-11 12:06] LABS: Glucose,Whole Blood 158 mg/dL (70-110)
[2025-02-11 14:13] VITALS: BP 156/73; PULSE 61; RESP 17; TEMP 98.2
--- NOTE | 2025-02-13 15:11 | P.DS ---
Providers Date of admission: 02/08/25 15:19 Expected date of discharge: 02/11/25 Attending physician: Tiffanie Boyd Consults: 02/08/25 15:18 Consult Physician Routine Consulting Provider: Modesta Locke Consult Reason/Comments: chf Do you want consulting provider notified?: Yes Consult Physician Routine Consulting Provider: Aletha Mars Consult Reason/Comments: chris Do you want consulting provider notified?: Yes Primary care physician: Juanjo Livingston Hospital Course: Final diagnosis CHF acute exacerbation with acute on chronic diastolic dysfunction Acute hypoxic respiratory failure secondary to above and will require 2 L of oxygen on discharge Acute on chronic renal failure with chronic kidney disease, stage III History of CVA/TIA Diabetes mellitus, type II GERD Hypertension Hyperlipidemia Sleep apnea Obesity with a BMI of 32.4 Discharge disposition Patient is being discharged in a stable condition with guarded prognosis to home with home O2 to manage CHF . Patient will follow-up with Dr. Livingston in the outpatient setting upon discharge. Patient is to continue with current medications and outpatient follow-up with cardiology and nephrology as scheduled. Total time taken is greater than 35 minutes. Hospital course This is a 74-year-old male who was recently admitted with shortness of breath with COPD exacerbation being closely monitored by cardiology maintained on diuresis. Patient also requiring oxygen and does not normally wear outpatient although does have history of sleep apnea. Patient evaluated by nephrology with acute on chronic kidney disease although relatively stable. Patient will continue current medication regimen with repeat labs in the outpatient setting and has been cleared by consultations for discharge home today. Patient is requiring oxygen to manage CHF and is being arranged by social work in the outpatient setting. Please refer to other consultation notes for further HPI. Currently no reports of chest pain, shortness of breath, or palpitations. Patient is afebrile. No reports of nausea or vomiting and patient is tolerating diet. Patient will be discharged home today. Guarded prognosis and high risk for readmissions Physical exam: Gen: This is a 74-year-old male who is awake, alert and oriented x 3, well- developed, elderly appearing, obese HEENT: Head is atraumatic, normocephalic. Pupils equal, round. Sclerae is anicteric. NECK: Supple. No JVD. No lymphadenopathy. No thyromegaly. LUNGS: Diminished breath sounds bilaterally otherwise clear to auscultation. No wheezes or rhonchi. No intercostal retractions. HEART: S1, S2 are muffled ABDOMEN: Soft. Obese bowel sounds are present. No masses. No tenderness. EXTREMITIES: No pedal edema. No calf tenderness. Mild bilateral lower extremity edema noted NEUROLOGICAL: Patient is awake, alert and oriented x3. Cranial nerves 2 through 12 are grossly intact. Please refer to medication reconciliation sheet for a list of medications. The impression and plan of care has been dictated by Juju Butts, Nurse Practitioner as directed. Dr. Everette MD I have performed a history and examination and MDM of this patient, discussed the same with the dictator, and agree with the dictator's assessment and plan as written ,documented as a scribe. Based on total visit time, I have performed more than 50% of the visit. Patient Condition at Discharge: Fair Plan - Discharge Summary New Discharge Prescriptions: New Dapagliflozin Propanediol [Farxiga] 5 mg PO DAILY #30 tab Potassium Chloride ER [K-Dur 20] 20 meq PO DAILY #30 tab Pantoprazole [Protonix] 40 mg PO AC-BRKFST #30 tab carvediloL [Coreg] 6.25 mg PO BID-W/MEALS #60 tab Continue FLUoxetine HCL [PROzac] 40 mg PO DAILY Doxazosin [Cardura] 2 mg PO HS calcitrioL 0.25 mcg PO SUWE Aspirin [Adult Low Dose Aspirin EC] 81 mg PO DAILY buPROPion HCL [buPROPion HCL SR] 150 mg PO DAILY Insulin Lispro [humaLOG Kwikpen] 6 - 8 unit SQ AC-TID Nitroglycerin Sl Tabs [Nitrostat] 0.4 mg SUBLINGUAL Q5M PRN #1 bottle PRN Reason: Chest Pain Multivitamins, Thera [Multivitamin (formulary)] 1 tab PO DAILY Sodium Bicarbonate Tab 650 mg PO BID lisinopriL [Zestril] 5 mg PO DAILY Isosorbide Mononitrate ER [Imdur] 30 mg PO DAILY Rosuvastatin Calcium 10 mg PO DAILY hydrALAZINE HCL [Apresoline] 100 mg PO QID 30 Days #120 tablet Furosemide [Lasix] 40 mg PO BID@0900,1600 30 Days #60 tab NIFEdipine [NIFEdipine ER (Osmotic)] 60 mg PO DAILY Clopidogrel [Plavix] 75 mg PO DAILY Insulin Glargine,Hum.rec.anlog [Lantus Solostar Pen] 20 unit SQ HS Cholecalciferol (Vitamin D3) [Vitamin D3 (50 Mcg = 2000 Iu)] 50 mcg PO DAILY Calcium Carbonate [Calcium] 600 mg PO DAILY Discharge Medication List Aspirin [Adult Low Dose Aspirin EC] 81 mg PO DAILY 06/27/20 [History] Doxazosin [Cardura] 2 mg PO HS 06/27/20 [History] FLUoxetine HCL [PROzac] 40 mg PO DAILY 06/27/20 [History] calcitrioL 0.25 mcg PO SUWE 06/27/20 [History] Insulin Lispro [humaLOG Kwikpen] 6 - 8 unit SQ AC-TID 06/28/20 [History] buPROPion HCL [buPROPion HCL SR] 150 mg PO DAILY 06/28/20 [History] Nitroglycerin Sl Tabs [Nitrostat] 0.4 mg SUBLINGUAL Q5M PRN #1 bottle 06/29/20 [Rx] Multivitamins, Thera [Multivitamin (formulary)] 1 tab PO DAILY 06/22/21 [History] Rosuvastatin Calcium 10 mg PO DAILY 09/21/21 [History] Furosemide [Lasix] 40 mg PO BID@0900,1600 30 Days #60 tab 09/24/21 [Rx] hydrALAZINE HCL [Apresoline] 100 mg PO QID 30 Days #120 tablet 09/24/21 [Rx] NIFEdipine [NIFEdipine ER (Osmotic)] 60 mg PO DAILY 11/23/21 [History] Sodium Bicarbonate Tab 650 mg PO BID 05/17/24 [History] Calcium Carbonate [Calcium] 600 mg PO DAILY 02/08/25 [History] Cholecalciferol (Vitamin D3) [Vitamin D3 (50 Mcg = 2000 Iu)] 50 mcg PO DAILY 02/08/25 [History] Clopidogrel [Plavix] 75 mg PO DAILY 02/08/25 [History] Insulin Glargine,Hum.rec.anlog [Lantus Solostar Pen] 20 unit SQ HS 02/08/25 [History] Isosorbide Mononitrate ER [Imdur] 30 mg PO DAILY 02/08/25 [History] lisinopriL [Zestril] 5 mg PO DAILY 02/08/25 [History] Dapagliflozin Propanediol [Farxiga] 5 mg PO DAILY #30 tab 02/11/25 [Rx] Pantoprazole [Protonix] 40 mg PO AC-BRKFST #30 tab 02/11/25 [Rx] Potassium Chloride ER [K-Dur 20] 20 meq PO DAILY #30 tab 02/11/25 [Rx] carvediloL [Coreg] 6.25 mg PO BID-W/MEALS #60 tab 02/11/25 [Rx] Follow up Appointment(s)/Referral(s): Modesta Locke MD [STAFF PHYSICIAN] - 1 Week Juanjo Livingston MD [Primary Care Provider] - 1-2 days Stuart Burks DO [STAFF PHYSICIAN] - 1 Week Ambulatory/Diagnostic Orders: Complete Blood Count w/diff [LAB.AMB] Time Frame: 3 Days, Location: None Selected Patient Instructions/Handouts: Heart Failure (GEN), Acute Kidney Injury (IP), Dyspnea (DC) Activity/Diet/Wound Care/Special Instructions: Activity limited until follow-up Follow-up with primary care provider on discharge Follow-up with cardiology outpatient Follow-up with nephrology outpatient Repeat labs in 2 to 3 days Continue to elevate lower extremities and use compression stockings and/or [place] wraps from the toes up to the knees and do not wear at bed Continue with fluid restrictions of 40 ounces daily including all water, pop, juice, coffee, tea Discharge Disposition: HOME SELF-CARE
== END 2025-02-11 16:00 | disposition home or self-care (01) | DRG 291 ==
LOC: EC 11:50 → 6NMEDSUR 15:19 → OBSVTOIN 15:19 → 6NMEDSUR 18:12
PROVIDERS: ADMIT Hospitalist; ATTEND Hospitalist
DX: I13.0 Hypertensive heart and chronic kidney disease with heart failure and stage 1 through stage 4 chronic kidney disease, or unspecified chronic kidney disease (principal); I50.43 Acute on chronic combined systolic (congestive) and diastolic (congestive) heart failure; J96.01 Acute respiratory failure with hypoxia; N18.4 Chronic kidney disease, stage 4 (severe); E11.22 Type 2 diabetes mellitus with diabetic chronic kidney disease; J44.9 Chronic obstructive pulmonary disease, unspecified; E66.9 Obesity, unspecified; D63.1 Anemia in chronic kidney disease; N17.9 Acute kidney failure, unspecified; Z79.4 Long term (current) use of insulin; E61.1 Iron deficiency; E78.5 Hyperlipidemia, unspecified; G47.30 Sleep apnea, unspecified; I25.10 Atherosclerotic heart disease of native coronary artery without angina pectoris; I25.5 Ischemic cardiomyopathy; I44.0 Atrioventricular block, first degree; I45.10 Unspecified right bundle-branch block; K21.9 Gastro-esophageal reflux disease without esophagitis; Z68.34 Body mass index [BMI] 34.0-34.9, adult; Z79.02 Long term (current) use of antithrombotics/antiplatelets; Z79.82 Long term (current) use of aspirin; Z79.899 Other long term (current) drug therapy; Z86.73 Personal history of transient ischemic attack (TIA), and cerebral infarction without residual deficits; Z96.651 Presence of right artificial knee joint; Z98.61 Coronary angioplasty status; Z98.42 Cataract extraction status, left eye; Z98.41 Cataract extraction status, right eye
CPT/HCPCS: 36415; 71045; 80048; 80053; 82728; 83540; 83550; 83605; 83735; 83880; 84484; 85025; 85610; 85730; 93005; 93306; 94640; 96374; 99285